=== PATIENT | female | born 1935 | race Caucasian/White ===

== ENCOUNTER 2024-02-02 18:13 | Inpatient (IN) | payer MEDICARE, BC, SELFPAY ==
[2024-02-02 18:26] VITALS: BP 165/92; PULSE 123; RESP 26; TEMP 37.2; O2SAT 93
[2024-02-02 18:36] VITALS: PULSE 120; O2SAT 98; BMI 34.3
--- NOTE | 2024-02-02 18:46 | PC.NURSE ---
BIBA for abdominal distention x2 days. Patient states some times it hurts. Reports having regular bowel movements. Pt on O2 at base line 3L NC. EMS noted pt to have some work of breathing and increased to 4L and placed pt on the monitor, found pt to be Afib RVR hr 100-132. the placed IV.
[2024-02-02 19:23] VITALS: BP 148/94; PULSE 126; RESP 30; TEMP 37.1; O2SAT 92
--- NOTE | 2024-02-02 19:28 | PD.EDABDPN ---
ED Abdominal Pain RME/HPI General Chief Complaint: Abdominal Pain Stated complaint: A FIB, RVR Time seen by provider: 02/02/24 19:41 Arrival date/time: 02/02/24 18:13 RME / HPI RME / HPI narrative: Dr. [facility] Main ED Evaluation: 88yo female with pmhx AAA status post stent, hypertension, hyperlipidemia, asthma, GERD, neuropathy and dementia BIBA from [facility] for 3 days of cough, sore throat, and non-bloody diarrhea. Patient was recently discharged from this facility after having pneumonia and complications due to having blood in her stool. Patient had a colonoscopy during her stay. Patient's daughter reports the patient has had shortness of breath since she was discharged yesterday. Before leaving the hospital she did have some distention. The patient continues to have abdominal distention with increasing pain.Daughter denies any N/V, fever, chills or any other associated symptoms. Related Data Home Medications ?Medication ?Instructions ?Recorded ?Confirmed calcium 333 mg-vit D3 133 1 tab PO BID 01/26/24 01/26/24 unit-magnesium 133 mg-zinc 5 mg tablet donepezil 10 mg tablet (Aricept) 10 mg PO QPM 01/26/24 01/26/24 duloxetine 60 mg capsule,delayed 60 mg PO QDAY 01/26/24 01/26/24 release (Cymbalta) gabapentin 400 mg capsule 400 mg PO QPM 01/26/24 01/26/24 losartan 100 mg tablet 100 mg PO QDAY 01/26/24 01/26/24 meloxicam 15 mg tablet 15 mg PO QDAY 01/26/24 01/26/24 memantine 10 mg tablet 10 mg PO QAM 01/26/24 01/26/24 montelukast 10 mg tablet 10 mg PO QPM 01/26/24 01/26/24 omeprazole 40 mg capsule,delayed 40 mg PO QDAY 01/26/24 01/26/24 release rosuvastatin 10 mg tablet (Crestor) 10 mg PO QDAY 01/26/24 01/26/24 tolterodine 4 mg capsule,extended 4 mg PO QDAY 01/26/24 01/26/24 release 24 hr Allergies Allergy/AdvReac Type Severity Reaction Status Date / Time iodine Allergy Severe HIVES Verified 02/03/24 11:36 Tetracyclines Allergy Unknown Verified 02/03/24 11:36 Review of Systems Review of Systems Systems Reviewed: All systems reviewed, normal except as documented Past Medical History Past Medical History NEUROLOGIC: Positive Neurological Disorders, Cerebrovascular Accident and Dementia; Negative Seizures CARDIAC: Positive Cardiac Disorders, Hypercholesterolemia, Aneurysm, Valvular Heart Disease (aortic repair), Deep Vein Thrombosis and Hypertension; Negative Congestive Heart Failure RESPIRATORY: Positive Asthma, Bronchitis and Pneumonia; Negative Chronic Obstructive Pulmonary Disease (COPD) GASTROINTESTINAL: Positive Gastroesophageal Reflux Disease; Negative Gastrointestinal Disorders GENITOURINARY: Negative Genitourinary Disorders or Renal Disease REPRODUCTIVE: Positive Previous Pregnancies MUSCULOSKELETAL: Positive Musculoskeletal Disorders, Arthritis, Scoliosis and Degenerative Joint Disease ENT: Positive Cataracts ENDOCRINE: Negative Endocrine Disorders, Diabetes Mellitus Type 1 or Diabetes Mellitus Type 2 HEMATOLOGIC: Negative Blood Disorders PSYCHO/SOCIAL: Positive Depression and Anxiety OTHER HISTORY: Positive Chicken Pox, Measles and Cancer; Negative Autoimmune Disease, Blood Transfusions or Anesthesia Reactions Family History FAMILY HISTORY: Positive Family Cardiac Disorders and Family Cancer; Negative Family Psychiatric Problems, Family Respiratory Disorders, Family Gastrointestinal Problems, Family Surgery or Family Anesthesia Reaction Surgical History SURGICAL: Positive Tonsillectomy, Adenoidectomy, Neurologic Surgery and Hysterectomy; Negative Cardiac Surgery Social History SMOKING STATUS: Never smoker ED Exam General General appearance: Present alert and in no apparent distress Head Head exam: Present atraumatic Eye Eye exam: Present normal appearance, PERRL and EOMI ENT ENT exam: Present normal exam, normal oropharynx and mucous membranes moist Neck Neck exam: Present normal inspection, full ROM and trachea midline Chest Chest inspection: Present normal inspection and symmetric chest wall rise Respiratory Respiratory exam: Present normal lung sounds bilaterally Cardiovascular Cardiovascular exam: Present regular rate, normal rhythm and normal heart sounds Abdominal Exam Abdominal exam: Present soft, distention and normal bowel sounds Extremities Exam Extremities exam: Present normal inspection and full ROM Back Exam Back exam: Present normal inspection and full ROM Neurological Exam Neurological exam: Present alert, oriented X3 and CN II-XII intact Psychiatric Psychiatric exam: Present normal affect and normal mood Skin Skin exam: Present warm, dry, intact and normal color Course Quality Measures none Orders Category Date Time Status CT Screening NOW Care 02/02/24 19:[address] Screening NOW Care 02/02/24 19:36 Completed [place] to Martin Routine Care 02/03/24 01:49 Ordered NG / OG Tube Martin X1 Care 02/03/24 01:47 Completed NPO NOW Care 02/03/24 01:48 Active Diet NPO (NOW) Diet 02/03/24 01:[address] abdomen pelvis w con Stat Exams 02/02/24 19:[address] angio chest Stat Exams 02/02/24 19:33 Completed BNP [B-Type Natriuretic Peptide] Stat Lab 02/02/24 19:50 Completed Blood Culture (Lab) Stat Lab 02/02/24 23:39 Results CBC Stat Lab 02/02/24 19:50 Completed CMP [Comprehensive Metabolic Panel] Stat Lab 02/02/24 19:50 Completed Lactate (Lactic Acid) Stat Lab 02/02/24 23:39 Completed Lipase Stat Lab 02/02/24 19:50 Completed PT [Prothrombin Time with INR] Stat Lab 02/02/24 19:50 Completed PTT [Partial Thromboplastin Time] Stat Lab 02/02/24 19:50 Completed Procalcitonin Stat Lab 02/03/24 00:02 Completed Troponin I Stat Lab 02/02/24 19:50 Completed Type and Screen Stat Lab 02/03/24 02:22 Completed Morphine Inj Med 02/03/24 01:28 Discontinued 4 mg IVP X1 ONE Morphine Inj Med 02/03/24 01:47 Discontinued 4 mg IVP X1 ONE Piper/Tazo 3.375 gm [Zosyn] 50 ml Med 02/03/24 14:00 Active IV Q8HR Piper/Tazo Inj [Zosyn Inj] 3.375 gm Med 02/03/24 02:00 Discontinued Sodium Chloride 0.9% (P) [Ns 0.9% (P)] 50 ml IV X1 Sodium Chloride 0.9% 1000 ml [Ns] 1,000 ml Med 02/03/24 01:29 Discontinued IV 999 mls/hr Sodium Chloride 0.9% 500 ml [Ns] 500 ml Med 02/02/24 23:40 Discontinued IV 999 mls/hr Vital Signs Vital signs: Vital Signs Temperature 98.9 F 02/02/24 18:26 Pulse Rate 123 H 02/02/24 18:26 Respiratory Rate 26 H 02/02/24 18:26 Blood Pressure 165/92 H 02/02/24 18:26 Pulse Oximetry (%) 93 L 02/02/24 18:26 Oxygen Delivery Method Nasal Cannula 02/02/24 18:26 Oxygen Flow Rate 2 02/02/24 18:26 Abdominal Pain MDM MDM Narrative MDM Narrative:: 88-year-old female who recently left the hospital and diagnosed with pneumonia who had a complicated stay when she had blood in her stool and a colonoscopy was done. The patient then went [facility]. She has a history of dementia, depression, hyperlipidemia, generalized weakness, GERD, asthma.Daughter reports she has had shortness of breath since he left the hospital. Past medical history of AAA status post stent, hypertension, hyperlipidemia, asthma, GERD, neuropathy and dementia ROS Also increasing abdominal distention since the colonoscopy. No vomiting, no nausea no fever. Differential diagnosis includes pulmonary embolism, worsening pneumonia, pleural effusion, abdominal perforation, non-STEMI. Assessment and plan this is a 88-year-old female coming from care home with slow onset of abdominal distention and shortness of breath since her colonoscopy. -Labs will be sent, and a CT scan of chest to rule out PE as well as CT abdomen to look for small bowel obstruction. -The patient is not in pain at this time. Patient data External records reviewed:: [facility] previous records (Per chart review, patient was admitted here from 01/25/24-02/01/24 for generalized weakness and RUDDY.) Clinical information provided by:: patient and family Social determinants that could affect healthcare access:: none Patient has the following chronic illnesses:: AAA status post stent, hypertension, hyperlipidemia, asthma, GERD, neuropathy and dementia How is presenting disease/condition affected by chronic disease/condition?: exacerbated by Evaluation data The following diagnostics were reviewed and interpreted by me:: lab results and radiology exam(s) Lab and/or radiology exams considered but not ordered:: none Interpretation Summary: CBC is elevated at 15.7, BNP is elevated at 322, PTT is normal, PT and INR are normal, Troponin is normal, Lipase is normal, Creatinine is slightly elevated at 1.6, according to my interpretation. ---- I have personally reviewed the radiology data and agree with the radiologist's interpretation below: [facility] Report Signed Patient: SHELLEY DIEGO [facility]. Record#: [id number] Birthdate: 1935 Age/Sex: 88 / F Location: [facility] Attending Dr: Ordering Physician: Catia Evangelista MD Date of Service: 02/02/24 Procedure(s): CT angio chest Accession Number(s): [id number] cc: Lambert Hansen MD; Bebo Brian MD; Catia Evangelista MD~ Examination: CTA chest with intravenous contrast 2-D reconstructions 3-D reconstructions, vascular Date and time of exam: February 02, 2024 2119 hrs. Indications: Shortness of breath chest pain today, diagnosis hypertension atrial fibrillation CTDI: vol (mGy) 9.87 DLP: (mGycm) 321 Technique: Multiple axial sections of the thorax have been obtained. 3 mm slice thickness, from below the hemidiaphragms to above the apices of the lungs. Mediastinal and lung density settings have been obtained. 2-D sagittal and coronal reconstructions. 3-D angiographic renderings, 3-D volume renderings, 3D post processing, vascular maximum intensity projections obtained. Contrast administered is 60 cc Isovue-300. Low dose protocols were performed. One or more of the following dose reduction techniques were used; automated exposure control, adjustment of the mA and/or KV according to patient size, use of iterative reconstruction technique. Findings: No thoracic aortic aneurysm dilatation or dissection No pulmonary artery emboli Prominent vascular congestion Pneumonia both bases with moderate right mild to moderate left pleural effusions Pneumoperitoneum, prominent with air distending colon Please see the CT abdomen pelvis report Multiple liver cysts Gallbladder is contracted with wall thickening Impression: Negative for pulmonary artery emboli Mild heart failure Bibasilar pneumonia Extensive pneumoperitoneum, please see the CT abdomen pelvis report Dictated By: Bebo Brian MD Signed By: <Electronically signed by Bebo Brian MD in [place]> 02/02/242153 [facility] Signed Patient: SHELLEY DIEGO [facility]. Record#: [id number] Birthdate: 1935 Age/Sex: 88 / F [facility] Attending Dr: Ordering Physician: Catia Evangelista MD Date of Service: 02/02/24 Procedure(s): CT abdomen pelvis w con Accession Number(s): [id number] cc: Lambert Hansen MD; Bebo Brian MD; Catia Evangelista MD~ Examination: CT abdomen with intravenous contrast CT pelvis with intravenous contrast 2-D coronal reconstructions 2-D sagittal reconstructions Date and time of exam:February 05, 2024 at 2119 hrs. Indications: Hypertension abdominal pain chest pain onset today, history abdominal aortic aneurysm post endoluminal aortoiliac stent. CTDI: vol (mGy) 11.4 DLP: (mGycm) 607 Technique: Multiple axial sections of the abdomen and pelvis have been obtained. 64 slice high-resolution scanner used. 3 mm axial sections have been obtained, post intravenous injection 60 cc [id number] 2-D sagittal, coronal reconstructions obtained. Low dose protocols were performed. One or more of the following dose reduction techniques were used; automated exposure control, adjustment of the mA and/or KV according to patient size, use of iterative reconstruction technique. Findings: Retrocardiac gastric hernia with air density in the wall of the stomach Hyperdensity in the stomach with marked mucosal thickening Massive pneumoperitoneum Multiple liver and splenic cysts Gallbladder is contracted with thickened wall Abnormal enlargement common hepatic and common bile duct measuring up to 11 mm Abrupt termination of the distal common bile duct No hydronephrosis Aorta iliac endoluminal stent with infrarenal abdominal aortic aneurysm AP dimension 7.8 cm mediolateral dimension at least 7.5 cm with probable calcification in the abdominal aortic aneurysm, this is not a CTA study Contrast does not opacify the aortoiliac stent Prominent air distention of the colon No diverticulitis Heavily calcified fundus of uterus Severe osteopenia with lumbar fusion L4-S1 Bladder intact Impression: Massive pneumoperitoneum Hyperdensity in the stomach with marked mucosal thickening, gastritis pattern with possible gastrointestinal bleeding Multiple air densities in the wall of the stomach suspicious for gastric perforation causing the pneumoperitoneum Gallbladder wall thickening, consider cholecystitis Aorto iliac endoluminal stent which is not opacified, opacity irregular in the abdominal aortic aneurysm, which may represent calcification Free blood in the abdomen is not identified Dictated By: Bebo Brian MD Signed By: <Electronically signed by Bebo Brian MD in [place]> 02/02/24 6404 Medications / Prescriptions Medications or Prescriptions considered but not ordered:: none Medication administrations:: Medication Administration History Amlodipine Besylate (Amlodipine Besylate 5 Mg Tablet) 5 mg PO QDAY SAIRA Stop: 03/04/24 08:59 Last Admin: 02/03/24 09:21 Dose: 5 mg Documented By: EF Ascorbic Acid (Ascorbic Acid 250 Mg Tablet) 500 mg PO BID [facility] Stop: 03/04/24 20:59 Last Admin: 02/03/24 21:31 Dose: Not Given Documented By: Non-Admin Reason: NPO Atorvastatin Calcium (Atorvastatin Calcium 20 Mg Tablet) 40 mg PO 2100 SAIRA Stop: 03/04/24 20:59 Last Admin: 02/03/24 21:31 Dose: Not Given Documented By: Non-Admin Reason: NPO Docusate Sodium (Docusate Sod 100 Mg Capsule) 100 mg PO BID [facility]; Protocol Stop: 03/04/24 20:59 Last Admin: 02/03/24 21:31 Dose: Not Given Documented By: Non-Admin Reason: NPO Donepezil HCl (Donepezil Hcl 5 Mg Tablet) 10 mg PO QPM SAIRA Stop: 03/04/24 20:59 Last Admin: 02/03/24 21:31 Dose: Not Given Documented By: Non-Admin Reason: NPO Gabapentin (Gabapentin 100 Mg Capsule) 400 mg PO QPM SAIRA Stop: 03/04/24 20:59 Last Admin: 02/03/24 21:31 Dose: Not Given Documented By: Non-Admin Reason: NPO Piperacillin/Tazobactam/Dextrose (Zosyn) 50 mls @ 12.5 mls/hr IV Q8HR [facility]; Protocol Stop: 02/10/24 13:59 Last Admin: 02/03/24 22:52 Dose: 12.5 mls/hr Documented By: Admin: 02/03/24 17:35 Dose: Not Given Documented By: LW Non-Admin Reason: Not In Room Vancomycin/Sodium Chloride (Vancomycin/Ns 750 Mg Ivpb) 750 mg in 150 mls @ 120 mls/hr IV QDAY@2200 [facility] Stop: 02/10/24 21:59 Last Admin: 02/03/24 21:31 Dose: 120 mls/hr Documented By: Labetalol HCl (Labetalol Inj 5 Mg/Ml Vial 20 Ml) 10 mg IVP Q4H PRN PRN Reason: Hypertension Stop: 03/04/24 04:43 Memantine (Memantine Hcl 5 Mg Tablet) 10 mg PO QAM [facility] Stop: 03/04/24 08:59 Last Admin: 02/03/24 09:22 Dose: 10 mg Documented By: EF Morphine Sulfate (Morphine Sulf Inj 10 Mg/Ml Vial) 2 mg IVP Q4H PRN PRN Reason: PAIN SCALE 7-10 (Severe Stop: 02/08/24 02:25 Ondansetron HCl (Ondansetron Inj 2 Mg/Ml Inj 2 Ml) 4 mg IV Q6H PRN; Protocol PRN Reason: NAUSEA OR VOMITING Stop: 03/04/24 02:19 Pantoprazole Sodium (Pantoprazole Inj 40 Mg Vial) 40 mg IVP QDAY [facility] Stop: 03/04/24 08:59 Last Admin: 02/03/24 08:54 Dose: 40 mg Documented By: JOANNA Pharmacy Consult (Vancomycin Pharmacy To Dose 1 Each Each) 1 each IV QDAY PRN PRN Reason: CONSULT Stop: 03/04/24 08:59 Zinc Sulfate (Zinc Sulfate 220 Mg Capsule) 220 mg PO QDAY [facility] Stop: 03/05/24 08:59 Discontinued Medications Acetaminophen (Acetaminophen Supp 650 Mg Supp) 650 mg SC Q6HR PRN PRN Reason: Fever > 100.4 Stop: 03/04/24 02:19 Cefoxitin Sodium (Cefoxitin Sod Inj 1 Gm Vial) Confirm Administered Dose 2 gm .ROUTE .STK-MED ONE Stop: 02/03/24 12:19 Fentanyl Citrate (Fentanyl Cit Inj 50 Mcg/Ml Amp 2ml) Confirm Administered Dose 100 mcg .ROUTE .STK-MED ONE Stop: 02/03/24 11:48 Fentanyl Citrate (Fentanyl Cit Inj 50 Mcg/Ml Amp 2ml) 50 mcg IV Q5M PRN PRN Reason: PAIN SCALE 4-6 (Moderate Stop: 02/03/24 17:28 Sodium Chloride (Ns) 500 mls @ 999 mls/hr IV .[id number] ONE Stop: 02/03/24 00:10 Last Infusion: 02/03/24 00:42 Dose: Infused Documented By: Admin: 02/02/24 23:43 Dose: 999 mls/hr Documented By: RETA Sodium Chloride (Ns) 1,000 mls @ 999 mls/hr IV .Q1H1M ONE Stop: 02/03/24 02:29 Last Infusion: 02/03/24 03:16 Dose: Infused Documented By: Admin: 02/03/24 01:38 Dose: 999 mls/hr Documented By: RETA Piperacillin Sod/Tazobactam (Sod 3.375 gm/ Sodium Chloride) 50 mls @ 100 mls/hr IV X1 ONE Stop: 02/03/24 02:29 Last Infusion: 02/03/24 03:14 Dose: Infused Documented By: Admin: 02/03/24 02:07 Dose: 100 mls/hr Documented By: RETA Lactated Ringer's (Lactated Ringers) 1,000 mls @ 75 mls/hr IV .[id number] SAIRA Stop: 03/04/24 02:29 Lactated Ringer's (Lactated Ringers) 1,000 mls @ 75 mls/hr IV .[id number] ONE Stop: 02/03/24 15:49 Last Admin: 02/03/24 03:31 Dose: Not Given Documented By: MARTHA Non-Admin Reason: Discontinued Vancomycin/Sodium Chloride (Vancomycin/Ns 1 Gm Ivpb) 200 mls @ 120 mls/hr IV X1 ONE Stop: 02/03/24 04:24 Last Infusion: 02/03/24 05:26 Dose: Infused Documented By: Admin: 02/03/24 03:26 Dose: 120 mls/hr Documented By: RETA Sodium Chloride (Ns) 1,000 mls @ 75 mls/hr IV .[id number] ONE Stop: 02/03/24 16:07 Last Admin: 02/03/24 03:26 Dose: 75 mls/hr Documented By: RETA Acetaminophen (Ofirmev Inj) 1,000 mg in 100 mls @ 250 mls/hr IV Q6HR PRN PRN Reason: PAIN SCALE 4-10(Mod-Sev Stop: 02/04/24 15:27 Acetaminophen (Ofirmev Inj) Confirm Administered Dose 100 mls @ ud IV .STK-MED ONE Stop: 02/03/24 15:54 Labetalol HCl (Labetalol Inj 5 Mg/Ml Vial 20 Ml) 10 mg IVP X1 ONE Stop: 02/03/24 04:45 Last Admin: 02/03/24 05:45 Dose: Not Given Documented By: MARTHA Non-Admin Reason: Other, see note Comments: NOT GIVEN PT BP 145/82. Morphine Sulfate (Morphine Sulf Inj 10 Mg/Ml Vial) 4 mg IVP X1 ONE Stop: 02/03/24 01:29 Last Admin: 02/03/24 01:38 Dose: 4 mg Documented By: RETA Morphine Sulfate (Morphine Sulf Inj 10 Mg/Ml Vial) 4 mg IVP X1 ONE Stop: 02/03/24 01:48 Last Admin: 02/03/24 02:05 Dose: Not Given Documented By: RETA Non-Admin Reason: Duplicate Medication on eMAR Non-Formulary Medication (Rosuvastatin [Crestor]) 10 mg PO QDAY SAIRA Stop: 03/04/24 08:59 Ondansetron HCl (Ondansetron Inj 2 Mg/Ml Inj 2 Ml) 4 mg IV X1 ONE Stop: 02/03/24 15:29 Last Admin: 02/03/24 17:35 Dose: Not Given Documented By: TORRIE Non-Admin Reason: Cancelled by Provider Phenylephrine HCl (Phenylephrine Inj In Ns 100 Mcg/Ml 10 Ml Syringe) Confirm Administered Dose 1,000 mcg .ROUTE .STK-MED ONE Stop: 02/03/24 12:15 Phenylephrine HCl (Phenylephrine Inj 10 Mg/Ml Vial) Confirm Administered Dose 10 mg .ROUTE .STK-MED ONE Stop: 02/03/24 12:22 Propofol (Propofol Inj 10 Mg/Ml Vial 20 Ml) Confirm Administered Dose 200 mg IV .STK-MED ONE Stop: 02/03/24 11:48 Rocuronium [place] (Rocuronium Inj 10 Mg/Ml Vial 10 Ml) Confirm Administered Dose 100 mg .ROUTE .STK-MED ONE Stop: 02/03/24 11:48 Sugammadex Sodium (Sugammadex Inj 100 Mg/Ml 2ml Vial) Confirm Administered Dose 200 mg .ROUTE .STK-MED ONE Stop: 02/03/24 14:59 see above Consultations Consultation(s) initiated? (list below): Yes Consultation #1 (Physician, Specialty, Details): Discussed case with [Dr. Hsu] from [gastroenterology] regarding [consultation]. Discussed patients ED course, exam findings, labs, and radiology results. Requests the patient to be admitted, as well has starting abx, obtaining surgical consultation, and having an NG tube placed. Consultation #2 (Physician, Specialty, Details): Discussed case with [Dr. Sánchez, attending Dr. Roberto] from Hospitalist service regarding admission. Discussed patients ED course, exam findings, labs, and radiology results. The Hospitalist [agrees] to accept the patient for admission. Consultation #3 (Physician, Specialty, Details): Discussed case with [Dr. Ayala] from [general surgery] regarding [consultation]. Discussed patients ED course, exam findings, labs, and radiology results. Agrees to consult. Time: 01:42 Diagnosis Differential diagnosis abdominal pain: other (pulmonary embolism, worsening pneumonia, pleural effusion, abdominal perforation, non-STEMI) Most likely diagnosis given after review of the tests above:: see below Admission Indicated Admission indicated?: indicated Admission Request Was there a request for admission?: Yes Admission Attestation Admission request attestation: Discussed case with [] from Hospitalist service regarding admission. Discussed patients ED course, exam findings, labs, and radiology results. The Hospitalist [agrees,declines] to accept the patient for admission. Disposition Plan Disposition Plan: Admit Critical Care Time Critical Care Time Critical Care Time: Yes Total Critical Care Time (min.): 45 Attestation: The high probability of sudden, clinically significant deterioration in the patient?s condition required the highest level of my preparedness to intervene urgently. The services I provided to this patient were to treat and/or prevent clinically significant deterioration. Services included the following: chart data review, reviewing nursing notes and/or old charts, documentation time, political consultant collaboration regarding findings and treatment options, medication orders and management, direct patient care, vital sign assessments and ordering, interpreting and reviewing diagnostic studies and lab tests. Aggregate critical care time includes only time during which I was engaged in work directly related to the patient?s care, as described above, whether at bedside or elsewhere in the Emergency Department. It did not include time spent performing other reported procedures or the services of residents, students, nurses or physician assistants. Discharge Plan Plan Patient Disposition: Admit Acute Care w/in Hospital Patient condition on transfer: Stable Problem List Clinical Impression: Pneumoperitoneum, Post-operative complication
--- NOTE | 2024-02-02 19:33 | XR_ITS ---
Examination: CTA chest with intravenous contrast 2-D reconstructions 3-D reconstructions, vascular Date and time of exam: February 02, 2024 2119 hrs. Indications: Shortness of breath chest pain today, diagnosis hypertension atrial fibrillation CTDI: vol (mGy) 9.87 DLP: (mGycm) 321 Technique: Multiple axial sections of the thorax have been obtained. 3 mm slice thickness, from below the hemidiaphragms to above the apices of the lungs. Mediastinal and lung density settings have been obtained. 2-D sagittal and coronal reconstructions. 3-D angiographic renderings, 3-D volume renderings, 3D post processing, vascular maximum intensity projections obtained. Contrast administered is 60 cc Isovue-300. Low dose protocols were performed. One or more of the following dose reduction techniques were used; automated exposure control, adjustment of the mA and/or KV according to patient size, use of iterative reconstruction technique. Findings: No thoracic aortic aneurysm dilatation or dissection No pulmonary artery emboli Prominent vascular congestion Pneumonia both bases with moderate right mild to moderate left pleural effusions Pneumoperitoneum, prominent with air distending colon Please see the CT abdomen pelvis report Multiple liver cysts Gallbladder is contracted with wall thickening Impression: Negative for pulmonary artery emboli Mild heart failure Bibasilar pneumonia Extensive pneumoperitoneum, please see the CT abdomen pelvis report
--- NOTE | 2024-02-02 19:35 | XR_ITS ---
Examination: CT abdomen with intravenous contrast CT pelvis with intravenous contrast 2-D coronal reconstructions 2-D sagittal reconstructions Date and time of exam:February 05, 2024 at 2119 hrs. Indications: Hypertension abdominal pain chest pain onset today, history abdominal aortic aneurysm post endoluminal aortoiliac stent. CTDI: vol (mGy) 11.4 DLP: (mGycm) 607 Technique: Multiple axial sections of the abdomen and pelvis have been obtained. 64 slice high-resolution scanner used. 3 mm axial sections have been obtained, post intravenous injection 60 cc [id number] 2-D sagittal, coronal reconstructions obtained. Low dose protocols were performed. One or more of the following dose reduction techniques were used; automated exposure control, adjustment of the mA and/or KV according to patient size, use of iterative reconstruction technique. Findings: Retrocardiac gastric hernia with air density in the wall of the stomach Hyperdensity in the stomach with marked mucosal thickening Massive pneumoperitoneum Multiple liver and splenic cysts Gallbladder is contracted with thickened wall Abnormal enlargement common hepatic and common bile duct measuring up to 11 mm Abrupt termination of the distal common bile duct No hydronephrosis Aorta iliac endoluminal stent with infrarenal abdominal aortic aneurysm AP dimension 7.8 cm mediolateral dimension at least 7.5 cm with probable calcification in the abdominal aortic aneurysm, this is not a CTA study Contrast does not opacify the aortoiliac stent Prominent air distention of the colon No diverticulitis Heavily calcified fundus of uterus Severe osteopenia with lumbar fusion L4-S1 Bladder intact Impression: Massive pneumoperitoneum Hyperdensity in the stomach with marked mucosal thickening, gastritis pattern with possible gastrointestinal bleeding Multiple air densities in the wall of the stomach suspicious for gastric perforation causing the pneumoperitoneum Gallbladder wall thickening, consider cholecystitis Aorto iliac endoluminal stent which is not opacified, opacity irregular in the abdominal aortic aneurysm, which may represent calcification Free blood in the abdomen is not identified
[2024-02-02 20:00] LABS: Basophils % (Auto) 0 % (0-2.5); Eosinophils # (Auto) 0.1 Thou/mm3 (0.0-0.5); Eosinophils % (Auto) 0 % (0-10); Hematocrit 36.6 % (36.0-46.0); Hemoglobin 12.1 g/dL (12.0-16.0); Immature Granulocytes % (Auto) 2 % (0-0); Immature Granulocytes Auto 0.34 Thou/mm3 (0.00-0.00); Lymphocytes # (Auto) 0.9 Thou/mm3 (1.0-4.8); Lymphocytes % (Auto) 6 % (10-50); Mean Corpuscular HGB Conc 33.1 g/dl (31.0-37.0); Mean Corpuscular Hemoglobin 32.4 pg (25.0-35.0); Mean Corpuscular Volume 98 fL (80-100); Monocytes % (Auto) 19 % (0-12); Neutrophils # (Auto) 11.4 Thou/mm3 (1.8-7.7); Neutrophils % (Auto) 73 % (37-80); Nucleated Red Blood Cell % 0 /100 WBC (0); Platelet Count 190 Thou/mm3 (140-440); RDW Standard Deviation 48.9 fL (36.4-46.3); Red Blood Count 3.74 Miln/mm3 (4.00-5.20); White Blood Count 15.7 Thou/mm3 (3.6-11.0)
[2024-02-02 20:16] LABS: INR 1.1 (0.9-1.3); Partial Thromboplastin Time 31.6 Seconds (22.0-36.0); Prothrombin Time 11.9 Seconds (9.0-12.2)
[2024-02-02 20:17] LABS: B-Type Natriuretic Peptide 322 pg/mL (0-100)
[2024-02-02 20:19] LABS: Alanine Aminotransferase 9 U/L (10-49); Albumin, Serum 3.9 gm/dL (3.4-4.8); Albumin/Globulin Ratio 1.4 (1.2-2.2); Alkaline Phosphatase 88 U/L (46-116); Anion Gap 9 (7-16); Aspartate Amino Transferase 17 U/L (0-34); BUN/Creatinine Ratio 11 Ratio (12-20); Bilirubin,Total 0.5 mg/dL (0.3-1.2); Blood Urea Nitrogen 18 mg/dL (9-23); Calcium 9.8 mg/dL (8.3-10.6); Calcium (Corrected) 9.9 mg/dL (8.5-10.1); Carbon Dioxide 24.4 mMol/L (20.0-31.0); Chloride 108 mMol/L (98-107); Creatinine (Component) 1.6 mg/dL (0.6-1.3); Estimated Creatinine Clearance 27.5 mL/min (>60); Globulin 2.8 gm/dL (2.3-3.5); Glucose 173 mg/dL (74-106); Lipase 24 U/L (12-53); Osmolality,Calculated 287 (275-295); Potassium 3.5 mMol/L (3.4-5.1); Sodium 141 mMol/L (136-145); Total Protein 6.7 gm/dL (5.7-8.2); Troponin I 0.034 ng/mL (0.0-0.045); eGFR 31 See Note
[2024-02-02 20:23] VITALS: BP 158/99; PULSE 120; RESP 20; TEMP 38; O2SAT 92
[2024-02-02] MEDS: SODIUM CHLORIDE 0.9% 500 ML 500 ML 999 ML IV (23:43)
[2024-02-02 23:50] VITALS: BP 167/92; PULSE 125; RESP 20; TEMP 37.9; O2SAT 93
[2024-02-03] VITALS (23 sets, daily range): BP systolic 111–187; BP diastolic 69–131; PULSE 91–120; RESP 12–24; TEMP 36.2–37.9; O2SAT 92–98; BMI 31.0
[2024-02-03 00:06] LABS: Lactate (Lactic Acid) 1.1 mMol/L (0.4-2.0)
[2024-02-03] MEDS: MORPHINE SULF INJ 10 MG/ML VIAL 4 MG IVP (01:38)
[2024-02-03] MEDS: SODIUM CHLORIDE 0.9% 1000 ML 1,000 ML 999 ML IV (01:38)
[2024-02-03] MEDS: PIPER/TAZO INJ 3.375 GM in SODIUM CHLORIDE 0.9% (P) 50 ML IV (02:07)
--- NOTE | 2024-02-03 02:26 | XR_ITS ---
Examination: AP chest single view Technique: AP portable semiupright chest single view Exam date and time: February 03, 2024 at 0229 hrs. Indications: Post orogastric tube placement, history abdominal pain this week, massive pneumoperitoneum on CT abdomen examination today,, post orogastric tube placement Findings: Moderate enlargement left ventricle Prominent vascular congestion Bibasilar opacity consistent with pneumonia Extensive pneumoperitoneum Orogastric tube projects in a large retrocardiac gastric hernia Prominent osteopenia with significant osteoarthritis glenohumeral joints and ossified joint bodies left glenohumeral joint Impression: Bibasilar pneumonia Extensive pneumoperitoneum Orogastric tube projects in a large retrocardiac gastric hernia
--- NOTE | 2024-02-03 02:33 | ESHP_ITS ---
<Statement entered by Randy Roberto MD - 02/03/24 05:25> I was present for the essential components of the history, physical examination, diagnosis, and treatment plan with the resident. I have reviewed the documentation, discussed the case with the resident and agree with the patient's care as documented by the resident. High risk high complex - 75 mins. Randy Roberto MD Documentation for date of: 02/03/24 HPI History of Present Illness History of present illness: 88-year-old female patient with significant medical history for abdominal aortic aneurysm s/p stents, HLD, HTN, GERD, asthma and dementia was brought to ED for distended abdomen. Patient was recently admitted to [facility] on 01/26/2024 and discharged on 02/02/2024 for septic pneumonia and RUDDY. While in hospital patient also underwent EGD and colonoscopy as she was found to have downtrending of hemoglobin and there was concern for GI malignancy. EGD indicated gastritis and esophagitis, colonoscopy indicated severe diverticulosis and hemorrhoids. Patient was stable, had bowel movements/flatus and was discharged on p.o. Augmentin. Since discharge patient was witnessed to have a similar abdomen and no flatus/bowel movement. Today ED vitals were significant for BP 165/92, pulse 123, respiratory rate 26 and temperature 100.4 F. CBC was significant for leukocytosis 15.7, labs indicated creatinine 1.6 (baseline 1-1.1), glucose 173, lactic acid 1.1, BNP 322 and procalcitonin of 0.64. Abdomen/pelvis CT indicated: Massive pneumoperitoneum, hyperdensity in the stomach with marked mucosal thickening, gastritis pattern with possible gastrointestinal bleeding, multiple air densities in the wall of the stomach suspicious for gastric perforation causing the pneumoperitoneum, gallbladder wall thickening. Chest CTA showed mild heart failure, bibasilar pneumonia and extensive pneumoperitoneum. Cell Attendant Dr. Hsu was consulted along with general surgeon Dr. Ayala. Patient will be admitted for pneumoperitoneum management. Review of Systems Review of Systems Systems Reviewed: All systems reviewed, normal except as documented Exam Vital Signs Temp Pulse Resp BP Pulse Ox O2 Del Method O2 Flow Rate 100.2 F 120 H 20 187/86 H 95 Nasal Cannula 3 02/03/24 00:12 02/03/24 00:12 02/03/24 00:12 02/03/24 00:12 02/03/24 00:12 02/03/24 00:12 02/03/24 00:12 Narrative Exam Constitutional: well-developed, well-nourished, in mild distress, on nasal cannula HEENT: NCAT, EOMI, reactive round pupils b/l, patent nares b/l, moist mucous membranes Lung: CTAB, no wheezing, no rhonchi Heart: Regular S1S2, no murmurs, gallops, or rubs Abdomen: Firm, distended, non-guarding, non-tender on palpation, bowel sounds absent Extremities: No cyanosis, clubbing, or edema, LE pulses present b/l Neurologic: No focal sensory or motor deficits noted, AOx1, appropriate affect Skin: Warm, dry, no lesions or rashes noted Results: Labs 02/03/24 04:52 02/02/24 19:50 Labs: Short CBC 02/02/24 Range/Units 19:50 WBC 15.7 H (3.6-11.0) Thou/mm3 Hgb 12.1 (12.0-16.0) g/dL Hct 36.6 (36.0-46.0) % Plt Count 190 D (140-440) Thou/mm3 BMP 02/02/24 19:50 Sodium 141 Potassium 3.5 Chloride 108 H Carbon Dioxide 24.4 BUN 18 Creatinine 1.6 H D Glucose 173 H D Calcium 9.8 Cardiac Enzymes 02/02/24 Range/Units 19:50 Troponin I 0.034 (0.0-0.045) ng/mL Liver Function 02/02/24 Range/Units 19:50 Total Bilirubin 0.5 (0.3-1.2) mg/dL AST 17 (0-34) U/L ALT 9 L (10-49) U/L Alkaline Phosphatase 88 (46-116) U/L Albumin 3.9 (3.4-4.8) gm/dL Urine 02/02/24 Range/Units 20:00 Urine Color Cancelled Urine Clarity Cancelled Urine pH Cancelled Ur Specific [place] Cancelled Urine Protein Cancelled Urine Glucose (UA) Cancelled Quality Measures Quality Measures none Advance care planning discussed with:: other Medications Home Medications and Allergies Home Medications ?Medication ?Instructions ?Recorded ?Confirmed ?Type calcium 333 mg-vit D3 133 1 tab PO BID 01/26/24 01/26/24 History unit-magnesium 133 mg-zinc 5 mg tablet donepezil 10 mg tablet (Aricept) 10 mg PO QPM 01/26/24 01/26/24 History duloxetine 60 mg capsule,delayed 60 mg PO QDAY 01/26/24 01/26/24 History release (Cymbalta) gabapentin 400 mg capsule 400 mg PO QPM 01/26/24 01/26/24 History losartan 100 mg tablet 100 mg PO QDAY 01/26/24 01/26/24 History meloxicam 15 mg tablet 15 mg PO QDAY 01/26/24 01/26/24 History memantine 10 mg tablet 10 mg PO QAM 01/26/24 01/26/24 History montelukast 10 mg tablet 10 mg PO QPM 01/26/24 01/26/24 History omeprazole 40 mg capsule,delayed 40 mg PO QDAY 01/26/24 01/26/24 History release rosuvastatin 10 mg tablet (Crestor) 10 mg PO QDAY 01/26/24 01/26/24 History tolterodine 4 mg capsule,extended 4 mg PO QDAY 01/26/24 01/26/24 History release 24 hr Allergies Allergy/AdvReac Type Severity Reaction Status Date / Time iodine Allergy Severe HIVES Verified 05/15/18 10:55 Tetracyclines Allergy Unknown Verified 05/15/18 10:55 Visit Medications Acetaminophen (Acetaminophen Supp 650 Mg Supp) 650 mg [place] Q6HR PRN PRN Reason: Fever > 100.4 Stop: 03/04/24 02:19 Piperacillin Sod/Tazobactam (Sod 3.375 gm/ Sodium Chloride) 50 mls @ 100 mls/hr IV Q6HR SAIRA Stop: 02/10/24 01:47 Lactated Ringer's (Lactated Ringers) 1,000 mls @ 75 mls/hr IV .[id number] ONE Stop: 02/03/24 15:49 Morphine Sulfate (Morphine Sulf Inj 10 Mg/Ml Vial) 2 mg IVP Q4H PRN PRN Reason: PAIN SCALE 7-10 (Severe Stop: 02/08/24 02:25 Ondansetron HCl (Ondansetron Inj 2 Mg/Ml Inj 2 Ml) 4 mg IV Q6H PRN; Protocol PRN Reason: NAUSEA OR VOMITING Stop: 03/04/24 02:19 Pantoprazole Sodium (Pantoprazole Inj 40 Mg Vial) 40 mg IVP QDAY [facility] Stop: 03/04/24 08:59 Pharmacy Consult (Vancomycin Pharmacy To Dose 1 Each Each) 1 each IV QDAY [facility] Stop: 03/04/24 08:59 Discontinued Medications Sodium Chloride (Ns) 500 mls @ 999 mls/hr IV .Q31M ONE Stop: 02/03/24 00:10 Last Infusion: 02/03/24 00:42 Dose: Infused Sodium Chloride (Ns) 1,000 mls @ 999 mls/hr IV .Q1H1M ONE Stop: 02/03/24 02:29 Last Admin: 02/03/24 01:38 Dose: 999 mls/hr Piperacillin Sod/Tazobactam (Sod 3.375 gm/ Sodium Chloride) 50 mls @ 100 mls/hr IV X1 ONE Stop: 02/03/24 02:29 Last Admin: 02/03/24 02:07 Dose: 100 mls/hr Lactated Ringer's (Lactated Ringers) 1,000 mls @ 75 mls/hr IV .[id number] [facility] Stop: 03/04/24 02:29 Morphine Sulfate (Morphine Sulf Inj 10 Mg/Ml Vial) 4 mg IVP X1 ONE Stop: 02/03/24 01:29 Last Admin: 02/03/24 01:38 Dose: 4 mg Morphine Sulfate (Morphine Sulf Inj 10 Mg/Ml Vial) 4 mg IVP X1 ONE Stop: 02/03/24 01:48 Last Admin: 02/03/24 02:05 Dose: Not Given Assessment & Plan Plan 88-year-old female patient with significant medical history for abdominal aortic aneurysm s/p stents, HLD, HTN, GERD, asthma and dementia was brought to ED for distended abdomen. Patient was recently admitted to [facility] on 01/26/2024 and discharged on 02/02/2024 for septic pneumonia and RUDDY. Today ED vitals were significant for BP 165/92, pulse 123, respiratory rate 26 and temperature 100.4 F. CBC was significant for leukocytosis 15.7, labs indicated creatinine 1.6 (baseline 1-1.1), glucose 173, lactic acid 1.1, BNP 322 and procalcitonin of 0.64. Abdomen/pelvis CT indicated: Massive pneumoperitoneum, hyperdensity in the stomach with marked mucosal thickening, gastritis pattern with possible gastrointestinal bleeding, multiple air densities in the wall of the stomach suspicious for gastric perforation causing the pneumoperitoneum, gallbladder wall thickening. Patient will be admitted for pneumoperitoneum management. #Pneumoperitoneum #Distended abdomen #Sepsis Patient recently admitted for septic pneumonia and RUDDY Patient underwent recent EGD and colonoscopy On admission patient with distended abdomen and absent flatus Abdomen pelvis imaging indicative of pneumoperitoneum Labs significant for WBC 15.7, procalcitonin 0.64, temperature 100.4 F Plan: ? Admit to telemetry ? Start broad-spectrum antibiotics with Vanco and Zosyn IV ? N.p.o. ? Maintenance IVF NS at 75 cc/h ? NG tube with LIS ? GI Dr. Hsu consulted, recommendations are greatly appreciated ? General Surgeon Dr. Ayala consulted, recommendations greatly appreciated ? Follow-up CBC #Hospital acquired pneumonia Patient recently admitted for septic pneumonia, discharged on p.o. Augmentin Labs significant for WBC elevated at 15.7, procalcitonin 0.64 and temperature of 100.4 F Plan: ? Continue broad-spectrum antibiotics ? DuoNebs as needed ? Blood cultures pending ? Tylenol suppository as needed for fever > 100.4 F ? Follow-up CBC #RUDDY, most likely prerenal in setting of pneumonia On admission patient with creatinine 1.4 (baseline 1-1.1) Plan: ? Continue maintenance IVF ? Avoid nephrotoxin ? Renally dose medications #History of dementia Plan: Restart home med donepezil and memantine #History of AAA status post stents The patient has a history of AAA s/p stents. Patient is on reports that she follows Dr. Pro and has appointments every 6 months Plan: ? Follow-up outpatient postdischarge #Incidental finding of liver and splenic lesions CT abdomen and pelvis showed some previous history of lesions. 01/30/2024- MRI abdomen with liver protocol done showed multiple liver lesions as well as spleen and renal consistent with simple cysts, follow-up with ultrasound in 6 months per recommendations Health Maintenance Dispo: Patient admitted for pneumoperitoneum, general surgeon consulted Diet: N.p.o. DVT/PPx: SCD GI ppx: Protonix Lines: PIV and Thorpe catheter Code Status: Full code This patient care was discussed with my attending Dr. Felisa Sánchez MD PGY-2 Disclaimer: Minor errors in manager meeting may be present since this note was dictated by speech recognition software.
[2024-02-03 02:34] LABS: Procalcitonin 0.64 ng/ml (0.0-0.49)
[2024-02-03] MEDS: SODIUM CHLORIDE 0.9% 1000 ML 1,000 ML 75 ML IV (03:26)
[2024-02-03] MEDS: VANCOMYCIN/NS 1 GM IVPB 200 ML IV (03:26)
[2024-02-03 05:00] LABS: Lactate (Lactic Acid) 0.9 mMol/L (0.4-2.0)
[2024-02-03 05:07] LABS: Basophils % (Auto) 0 % (0-2.5); Eosinophils # (Auto) 0.1 Thou/mm3 (0.0-0.5); Eosinophils % (Auto) 1 % (0-10); Hematocrit 33.6 % (36.0-46.0); Hemoglobin 10.9 g/dL (12.0-16.0); Immature Granulocytes % (Auto) 3 % (0-0); Immature Granulocytes Auto 0.43 Thou/mm3 (0.00-0.00); Lymphocytes % (Auto) 7 % (10-50); Mean Corpuscular HGB Conc 32.4 g/dl (31.0-37.0); Mean Corpuscular Hemoglobin 32.4 pg (25.0-35.0); Mean Corpuscular Volume 100 fL (80-100); Monocytes # (Auto) 3.1 Thou/mm3 (0.0-0.8); Monocytes % (Auto) 21 % (0-12); Neutrophils # (Auto) 9.8 Thou/mm3 (1.8-7.7); Neutrophils % (Auto) 68 % (37-80); Nucleated Red Blood Cell # 0.03 Thou/mm3 (0.00-0.00); Nucleated Red Blood Cell % 0 /100 WBC (0); Platelet Count 167 Thou/mm3 (140-440); RDW Standard Deviation 51.1 fL (36.4-46.3); Red Blood Count 3.36 Miln/mm3 (4.00-5.20); White Blood Count 14.5 Thou/mm3 (3.6-11.0)
[2024-02-03 06:04] LABS: Alanine Aminotransferase 8 U/L (10-49); Albumin, Serum 3.6 gm/dL (3.4-4.8); Albumin/Globulin Ratio 1.4 (1.2-2.2); Alkaline Phosphatase 79 U/L (46-116); Anion Gap 8 (7-16); Aspartate Amino Transferase 13 U/L (0-34); BUN/Creatinine Ratio 12 Ratio (12-20); Bilirubin,Total 0.5 mg/dL (0.3-1.2); Blood Urea Nitrogen 16 mg/dL (9-23); Calcium 8.8 mg/dL (8.3-10.6); Calcium (Corrected) 9.1 mg/dL (8.5-10.1); Carbon Dioxide 23.8 mMol/L (20.0-31.0); Chloride 111 mMol/L (98-107); Creatinine (Component) 1.3 mg/dL (0.6-1.3); Estimated Creatinine Clearance 33.9 mL/min (>60); Globulin 2.5 gm/dL (2.3-3.5); Glucose 126 mg/dL (74-106); Magnesium 1.8 mg/dL (1.6-2.6); Osmolality,Calculated 288 (275-295); Potassium 3.4 mMol/L (3.4-5.1); Sodium 143 mMol/L (136-145); Total Protein 6.1 gm/dL (5.7-8.2); eGFR 40 See Note
--- NOTE | 2024-02-03 08:40 | PC.NURSE ---
spoke with dr meadows regarding patients plan of care and states dr faria to consult with patient and repeat cbc,cmp now. Patients daughter levi made aware.
--- NOTE | 2024-02-03 08:50 | PC.NURSE ---
called pharmacy for namenda not in ER pyxis
[2024-02-03] MEDS: PANTOPRAZOLE INJ 40 MG VIAL IVP (08:54)
--- NOTE | 2024-02-03 09:14 | PC.NURSE ---
dr ramon at bedside
[2024-02-03] MEDS: amLODIPine BESYLATE 5 MG TABLET PO (09:21)
[2024-02-03] MEDS: MEMANTINE HCL 5 MG TABLET 10 MG PO (09:22)
--- NOTE | 2024-02-03 09:26 | PC.IP ---
dr faria at bedside
--- NOTE | 2024-02-03 09:34 | PC.NURSE ---
Dr. Ayala at bedside consulting with patient and speaking with daughter regarding plan of care.
[2024-02-03 09:36] LABS: Basophils % (Auto) 0 % (0-2.5); Eosinophils # (Auto) 0.1 Thou/mm3 (0.0-0.5); Eosinophils % (Auto) 1 % (0-10); Hematocrit 36.5 % (36.0-46.0); Hemoglobin 11.8 g/dL (12.0-16.0); Immature Granulocytes % (Auto) 3 % (0-0); Immature Granulocytes Auto 0.41 Thou/mm3 (0.00-0.00); Lymphocytes % (Auto) 6 % (10-50); Mean Corpuscular HGB Conc 32.3 g/dl (31.0-37.0); Mean Corpuscular Hemoglobin 32.4 pg (25.0-35.0); Mean Corpuscular Volume 100 fL (80-100); Monocytes # (Auto) 3.8 Thou/mm3 (0.0-0.8); Monocytes % (Auto) 24 % (0-12); Neutrophils # (Auto) 10.8 Thou/mm3 (1.8-7.7); Neutrophils % (Auto) 67 % (37-80); Nucleated Red Blood Cell % 0 /100 WBC (0); Platelet Count 181 Thou/mm3 (140-440); RDW Standard Deviation 51.6 fL (36.4-46.3); Red Blood Count 3.64 Miln/mm3 (4.00-5.20); White Blood Count 16.2 Thou/mm3 (3.6-11.0)
--- NOTE | 2024-02-03 09:36 | PD.SURCONS ---
HPI Consult details Consult date: 02/03/24 Reason for consult: abdominal pain History of present illness: 88-year-old female with history of hypertension, hypercholesterolemia, GERD and arthritis was admitted last week with weakness. During that hospitalization he underwent EGD that revealed bile gastritis and esophagitis. She also underwent colonoscopy that revealed diverticular disease, stricture of sigmoid colon and a difficult colonoscopy. The colonoscope was unable to be passed beyond the area of sigmoid stricture, an upper endoscopy scope was used and was advanced up to hepatic flexure. He had a bowel movement and was discharged to a retirement where she started having abdominal pain and distention since yesterday that has been getting progressively worse. A CT scan was obtained that revealed significant pneumoperitoneum. An NG tube was placed. Review of Systems Constitutional Constitutional: Reports chills and Denies fever(s) Cardiovascular Cardiovascular: Denies chest pain Respiratory Respiratory: Reports cough Gastrointestinal Gastrointestinal: Reports abdominal pain and Reports nausea Genitourinary Genitourinary: Denies difficulty voiding Musculoskeletal Musculoskeletal: Reports back pain Hematologic/Lymphatic Hematologic/Lymphatic: Denies easy bleeding and Denies easy bruising Past Medical History Surgical History OTHER SURGICAL HX: Hip replacement, bilateral knee replacement, vaginal hysterectomy, varicose vein excision, bone spur, back surgery, implantation of pain stimulator Social History SMOKING STATUS: Never smoker SUBSTANCE USE: does not use ALCOHOL: Never Meds Home Medications and Allergies Home Medications ?Medication ?Instructions ?Recorded ?Confirmed ?Type calcium 333 mg-vit D3 133 1 tab PO BID 01/26/24 01/26/24 History unit-magnesium 133 mg-zinc 5 mg tablet donepezil 10 mg tablet (Aricept) 10 mg PO QPM 01/26/24 01/26/24 History duloxetine 60 mg capsule,delayed 60 mg PO QDAY 01/26/24 01/26/24 History release (Cymbalta) gabapentin 400 mg capsule 400 mg PO QPM 01/26/24 01/26/24 History losartan 100 mg tablet 100 mg PO QDAY 01/26/24 01/26/24 History meloxicam 15 mg tablet 15 mg PO QDAY 01/26/24 01/26/24 History memantine 10 mg tablet 10 mg PO QAM 01/26/24 01/26/24 History montelukast 10 mg tablet 10 mg PO QPM 01/26/24 01/26/24 History omeprazole 40 mg capsule,delayed 40 mg PO QDAY 01/26/24 01/26/24 History release rosuvastatin 10 mg tablet (Crestor) 10 mg PO QDAY 01/26/24 01/26/24 History tolterodine 4 mg capsule,extended 4 mg PO QDAY 01/26/24 01/26/24 History release 24 hr Allergies Allergy/AdvReac Type Severity Reaction Status Date / Time iodine Allergy Severe HIVES Verified 02/03/24 11:36 Tetracyclines Allergy Unknown Verified 02/03/24 11:36 Exam Vital Signs Temp Pulse Resp BP Pulse Ox O2 Del Method O2 Flow Rate 98.2 F 109 H 19 170/75 H 95 Nasal Cannula 5 02/03/24 07:29 02/03/24 09:21 02/03/24 08:14 02/03/24 09:21 02/03/24 08:14 02/03/24 07:29 02/03/24 08:14 Constitutional Constitutional: moderate distress Routine Abdominal Exam Comments: Abdomen is distended and firm with diffuse peritonitis Results Results: Laboratory Laboratory results: results reviewed Results: Imaging CT scan - abdomen: report reviewed and image reviewed CT scan - pelvis: report reviewed and image reviewed Assessment & Plan Additional Assessment Additional comments: Perforated viscus with pneumoperitoneum, COVID-positive with recent pneumonia Plan Exploratory laparotomy, possible bowel resection, possible colostomy. Risks include but not limited to infection, bleeding, injury to bowel, bladder, ureter, spleen, surround neurovascular structures, abdominal sepsis and or abdominal abscess, need for further procedure and or operation, possible need for prolonged ventilator support, pneumonia, blood clot, heart attack, stroke and discussed with the patient and her daughter. Benefits and alternative discussed with them, all their questions answered, they agreed and consented to proceed with the operation.
[2024-02-03 10:04] LABS: Alanine Aminotransferase 8 U/L (10-49); Albumin, Serum 3.9 gm/dL (3.4-4.8); Albumin/Globulin Ratio 1.4 (1.2-2.2); Alkaline Phosphatase 83 U/L (46-116); Anion Gap 10 (7-16); Aspartate Amino Transferase 15 U/L (0-34); BUN/Creatinine Ratio 13 Ratio (12-20); Bilirubin,Total 0.6 mg/dL (0.3-1.2); Blood Urea Nitrogen 17 mg/dL (9-23); Calcium 9.2 mg/dL (8.3-10.6); Calcium (Corrected) 9.3 mg/dL (8.5-10.1); Carbon Dioxide 23.9 mMol/L (20.0-31.0); Chloride 110 mMol/L (98-107); Creatinine (Component) 1.3 mg/dL (0.6-1.3); Estimated Creatinine Clearance 33.9 mL/min (>60); Globulin 2.7 gm/dL (2.3-3.5); Glucose 113 mg/dL (74-106); Osmolality,Calculated 289 (275-295); Potassium 3.5 mMol/L (3.4-5.1); Sodium 144 mMol/L (136-145); Total Protein 6.6 gm/dL (5.7-8.2); eGFR 40 See Note
--- NOTE | 2024-02-03 11:58 | PC.NURSE ---
report given to rosamaria from OR patient taken to surgery now
--- NOTE | 2024-02-03 14:32 | XR_ITS ---
Examination: Abdomen AP single view Technique: AP portable supine abdomen, single view Exam date and time: February 03, 2024 1442 hrs. Indications: Incorrect instrument count Findings: Air distended small bowel loops Tracheal tube tip 4 cm above hossein Pleural and parenchymal disease both bases Orogastric tube in the distal stomach Air distended colon No opaque foreign body is visualized projecting within the chest or abdomen Impression: No instrument foreign body projects within the chest or abdomen
--- NOTE | 2024-02-03 15:15 | SUR.PHASEI ---
1515 Recovery started in OR 5 due to patient being covid positive, patient resting comfortably in [facility], on oxygen 10L via oxy mask with an oral airway in place, breathing unlabored, vital signs stable, dressing intact to abdomen; kamar, adaptic, gauze, medipore tape, abdominal binder, no bleeding noted, NG tube in place to left nares at 73, yellow fluid in tubing, on low, continuous suction, urinary catheter 16F in place with leg secure draining to gravity, lung sounds clear upon auscultation, bilateral radial pulses present when palpated, report recieved from Vu RN and Isacc COELLO
--- NOTE | 2024-02-03 15:35 | ESOP_ITS ---
Date of Procedure 02/03/24 Pre Op Diagnosis Pneumoperitoneum Post Op Diagnosis Perforated sigmoid colon Necrotic with significant distention of cecum and descending colon Hard and calcified pelvic mass Procedure Exploratory laparotomy, sigmoid colectomy with low pelvic anastomosis Right colectomy Excision of pelvic mass Findings Stricture and perforation of sigmoid colon. A hard and calcified mass was adjacent to the area of perforation. Significantly distended and necrotic appearing cecum and ascending colon. No evidence of purulent or feculent peritonitis. Anesthesia GETA and local Pathology / specimen Other (Sigmoid colon, right colon, pelvic mass) Estimated Blood Loss 50 Condition Stable Disposition PACU Surgeon Sally Ayala MD Surgical Staff Operation Date: 02/03/24 12:00 Case Staff CERTIFIED INCOME TAX PREPARER: Eugenio Lainez RNmarket development manager: Clara Calvin
--- NOTE | 2024-02-03 16:30 | SUR.PHASEI ---
1622 Report given to Owen JACOBS, patient meets discharge criteria from recovery, sleeping in [facility], able to arouse with verbal prompting, on oxygen 8L via oxy mask, breathing unlabored, vital signs stable, denies pain, dressing intact with abdominal binder; no bleeding noted, NG tube in place at 73 left nare, urinary catheter in place draining to gravity, denies nausea 1630 patient transported via [facility] to room 276 without incident, Owen JACOBS promptly in patients room along with E LEARNING SPECIALIST who assisted in transferring patient from [facility], patient resting comfortably in bed, her family arrived.
--- NOTE | 2024-02-03 16:43 | ESPR_ITS ---
<Statement entered by Alejandro Truong MD - 02/05/24 07:36> Senior Resident Attestation: I supervised/discussed management plan with resident physician Dr. Russell, and was involved in the care of this patient. I personally saw and examined the patient and discussed the assessment and plan with the entire medicine team, including my attending. Patient's care was discussed with attending physician, Dr. Mustapha Truong MD PGY-3 Documentation for date of: 02/03/24 Subjective Subjective Interval history: No acute overnight events. Patient seen and examined at bedside. Labs reviewed. Patient endorsed abdominal pain throuhout. She endorses shortness of breath and cough. Per daughter at bedside, cough has been very productive but clear. She denies headache, fever, chills, chest pain, palpitation, dizziness, nausea, vomiting. Patient unable to state if she had any bowel movements or not. Surgical team has been consulted; surgery intervention pending. Will keep patient NPO. Exam Vital Signs Temp Pulse Resp BP Pulse Ox O2 Del Method O2 Flow Rate 98.1 F 101 H 12 166/87 H 95 Nasal Cannula 120 02/03/24 15:45 02/03/24 16:00 02/03/24 16:00 02/03/24 16:00 02/03/24 16:00 02/03/24 07:29 02/03/24 16:00 Narrative Exam Constitutional: well-developed, well-nourished, in mild distress, on nasal cannula HEENT: NCAT, EOMI, reactive round pupils b/l, patent nares b/l, moist mucous membranes Lung: CTAB, no wheezing, no rhonchi Heart: Regular S1S2, no murmurs, gallops, or rubs Abdomen: Firm, distended, non-tender on palpation. Hypoactive bowel sounds. Extremities: No cyanosis, clubbing, or edema, 1+ dorsalis pedis pulses present b/l Neurologic: AOx1, appropriate affect Skin: Warm, dry, no lesions or rashes noted Objective Labs 02/04/24 05:04 02/04/24 05:04 Labs: Laboratory Results - last 24 hr 02/02/24 02/02/24 02/03/24 19:50 20:00 00:02 WBC 15.7 H RBC 3.74 L Hgb 12.1 Hct 36.6 MCV 98 MCH 32.4 MCHC 33.1 RDW Std Deviation 48.9 H Plt Count 190 D Neut % (Auto) 73 Lymph % (Auto) 6 L [place] % (Auto) 19 H Eos % (Auto) 0 Baso % (Auto) 0 Neut # (Auto) 11.4 H Lymph # (Auto) 0.9 L [place] # (Auto) 3.0 H Eos # (Auto) 0.1 Baso # (Auto) 0.0 Immature Gran # (Auto) 0.34 H Absolute Nucleated RBC 0.00 Immature Gran % 2 H Nucleated RBC % 0 PT 11.9 INR 1.1 APTT 31.6 D Sodium 141 Potassium 3.5 Chloride 108 H Carbon Dioxide 24.4 Anion Gap 9 BUN 18 Creatinine 1.6 H D Estim Creat Clear Calc 27.5 L eGFR 31 L BUN/Creatinine Ratio 11 L Glucose 173 H D Calculated Osmolality 287 Lactic Acid 1.1 Calcium 9.8 Corrected Calcium 9.9 Phosphorus Magnesium Total Bilirubin 0.5 AST 17 ALT 9 L Alkaline Phosphatase 88 Troponin I 0.034 B-Natriuretic Peptide 322 H Total Protein 6.7 Albumin 3.9 Globulin 2.8 Albumin/Globulin Ratio 1.4 Lipase 24 Procalcitonin 0.64 H Ur Collection Type Cancelled Urine Color Cancelled Urine Clarity Cancelled Urine pH Cancelled Ur Specific [place] Cancelled Urine Protein Cancelled Urine Glucose (UA) Cancelled Urine Ketones Cancelled Urine Blood Cancelled Urine Nitrite Cancelled Urine Bilirubin Cancelled Urine Urobilinogen (Auto) Cancelled Ur Leukocyte Esterase Cancelled Urine RBC Cancelled Urine WBC Cancelled Ur Squamous Epith Cells Cancelled Ur Transition Epith Cell Cancelled Ur Renal Epithelial Cell Cancelled Calcium Carbonate Cryst Cancelled Calcium Phosphate Cryst Cancelled Calcium Oxalate Crystal Cancelled Leucine Crystals Cancelled Cystine Crystals Cancelled Uric Acid Crystals Cancelled Triple Phos Crystals Cancelled Tyrosine Crystals Cancelled Amorphous Crystals Cancelled Urine Bacteria Cancelled Cellular Casts Cancelled Epithelial Casts Cancelled Fatty Casts Cancelled Hyaline Casts Cancelled Granular Casts Cancelled Waxy Casts Cancelled Broad Casts Cancelled RBC Casts Cancelled Urine Mucus Cancelled Urine Trichomonas Cancelled Ur Yeast w [place] Cancelled Urine Yeast (Budding) Cancelled Urine Sperm Cancelled Ur Oval Fat Bodies Cancelled Blood Type Antibody Screen Blood Bank Wristband ID 02/03/24 02/03/24 02/03/24 02:22 04:52 08:59 WBC 14.5 H 16.2 H RBC 3.36 L 3.64 L Hgb 10.9 L 11.8 L Hct 33.6 L 36.5 MCV 100 100 MCH 32.4 32.4 MCHC 32.4 32.3 RDW Std Deviation 51.1 H 51.6 H Plt Count 167 181 Neut % (Auto) 68 67 Lymph % (Auto) 7 L 6 L [place] % (Auto) 21 H 24 H Eos % (Auto) 1 1 Baso % (Auto) 0 0 Neut # (Auto) 9.8 H 10.8 H Lymph # (Auto) 1.0 1.0 [place] # (Auto) 3.1 H 3.8 H Eos # (Auto) 0.1 0.1 Baso # (Auto) 0.0 0.0 Immature Gran # (Auto) 0.43 H 0.41 H Absolute Nucleated RBC 0.03 H 0.00 Immature Gran % 3 H 3 H Nucleated RBC % 0 0 PT INR APTT Sodium 143 144 Potassium 3.4 3.5 Chloride 111 H 110 H Carbon Dioxide 23.8 23.9 Anion Gap 8 10 BUN 16 17 Creatinine 1.3 1.3 Estim Creat Clear Calc 33.9 L 33.9 L eGFR 40 L 40 L BUN/Creatinine Ratio 12 13 Glucose 126 H 113 H Calculated Osmolality 288 289 Lactic Acid 0.9 Calcium 8.8 9.2 Corrected Calcium 9.1 9.3 Phosphorus 4.0 Magnesium 1.8 Total Bilirubin 0.5 0.6 AST 13 15 ALT 8 L 8 L Alkaline Phosphatase 79 83 Troponin I B-Natriuretic Peptide Total Protein 6.1 6.6 Albumin 3.6 3.9 Globulin 2.5 2.7 Albumin/Globulin Ratio 1.4 1.4 Lipase Procalcitonin Ur Collection Type Urine Color Urine Clarity Urine pH Ur Specific [place] Urine Protein Urine Glucose (UA) Urine Ketones Urine Blood Urine Nitrite Urine Bilirubin Urine Urobilinogen (Auto) Ur Leukocyte Esterase Urine RBC Urine WBC Ur Squamous Epith Cells Ur Transition Epith Cell Ur Renal Epithelial Cell Calcium Carbonate Cryst Calcium Phosphate Cryst Calcium Oxalate Crystal Leucine Crystals Cystine Crystals Uric Acid Crystals Triple Phos Crystals Tyrosine Crystals Amorphous Crystals Urine Bacteria Cellular Casts Epithelial Casts Fatty Casts Hyaline Casts Granular Casts Waxy Casts Broad Casts RBC Casts Urine Mucus Urine Trichomonas Ur Yeast w [place]pha[place] Urine Yeast (Budding) Urine Sperm Ur Oval Fat Bodies Blood Type A Positive Antibody Screen NEGATIVE Blood Bank Wristband ID Yes Quality Measures Quality Measures none Advance care planning discussed with:: patient Assessment & Plan Assessment Current Active Medications: Generic Name Dose Route Start Last Admin Trade Name Freq PRN Reason Stop Dose Admin Acetaminophen 650 mg 02/03/24 02:20 Acetaminophen Supp 650 Mg Supp NM 03/04/24 02:19 Q6HR PRN Fever > 100.4 Amlodipine Besylate 5 mg 02/03/24 09:00 02/03/24 09:21 Amlodipine Besylate 5 Mg Tablet PO 03/04/24 08:59 5 mg QDAY SAIRA Administration Atorvastatin Calcium 40 mg 02/03/24 21:00 Atorvastatin Calcium 20 Mg Tablet PO 03/04/24 20:59 2100 SAIRA Donepezil HCl 10 mg 02/03/24 21:00 Donepezil Hcl 5 Mg Tablet PO 03/04/24 20:59 QPM SAIRA Fentanyl Citrate 50 mcg 02/03/24 15:28 Fentanyl Cit Inj 50 Mcg/Ml Amp 2ml IV 02/03/24 17:28 Q5M PRN PAIN SCALE 4-6 (Moderate Gabapentin 400 mg 02/03/24 21:00 Gabapentin 100 Mg Capsule PO 03/04/24 20:59 QPM SAIRA Piperacillin/Tazobactam/Dextrose 50 mls @ 12.5 mls/hr 02/03/24 14:00 Zosyn IV 02/10/24 13:59 Q8HR SAIRA Protocol Vancomycin/Sodium Chloride 750 mg in 150 mls @ 120 mls/hr 02/03/24 22:00 Vancomycin/Ns 750 Mg Ivpb IV 02/10/24 21:59 QDAY@2200 SAIRA Acetaminophen 1,000 mg in 100 mls @ 250 mls/hr 02/03/24 15:28 Ofirmev Inj IV 02/04/24 15:27 Q6HR PRN PAIN SCALE 4-10(Mod-Sev Labetalol HCl 10 mg 02/03/24 04:44 Labetalol Inj 5 Mg/Ml Vial 20 Ml IVP 03/04/24 04:43 Q4H PRN Hypertension Memantine 10 mg 02/03/24 09:00 02/03/24 09:22 Memantine Hcl 5 Mg Tablet PO 03/04/24 08:59 10 mg QAM SAIRA Administration Morphine Sulfate 2 mg 02/03/24 02:26 Morphine Sulf Inj 10 Mg/Ml Vial IVP 02/08/24 02:25 Q4H PRN PAIN SCALE 7-10 (Severe Ondansetron HCl 4 mg 02/03/24 02:20 Ondansetron Inj 2 Mg/Ml Inj 2 Ml IV 03/04/24 02:19 Q6H PRN NAUSEA OR VOMITING Protocol Pantoprazole Sodium 40 mg 02/03/24 09:00 02/03/24 08:54 Pantoprazole Inj 40 Mg Vial IVP 03/04/24 08:59 40 mg QDAY SAIRA Administration Pharmacy Consult 1 each 02/03/24 09:00 Vancomycin Pharmacy To Dose 1 Each Each IV 03/04/24 08:59 QDAY PRN CONSULT Plan An 88-year-old female patient with significant medical history for abdominal aortic aneurysm s/p stents, HLD, HTN, GERD, asthma and dementia presented to the ED of [facility] on 02/01 for distended abdomen. Patient was recently admitted to [facility] on 01/26/2024 and discharged on 02/01/2024 for septic pneumonia and RUDDY. In ED, BP 165/92, pulse 123, respiratory rate 26 and temperature 100.4 F, leukocytosis 15.7, creatinine 1.6 (baseline 1.1), lactic acid 1.1, BNP 322 and procalcitonin of 0.64. Abdomen/pelvis CT showed massive pneumoperitoneum, hyperdensity in the stomach with marked mucosal thickening, gastritis pattern with possible gastrointestinal bleeding, multiple air densities in the wall of the stomach suspicious for gastric perforation causing the pneumoperitoneum, gallbladder wall thickening. Patient was admitted for pneumoperitoneum management, requiring surgical intervention. #Sepsis, most likely secondary to #Pneumoperitoneum #Leukocytosis Patient was found to have distended abdomen upon recent EGD and colonoscopy done in the hospital. She met 4 out of 4 SIRS criteria for sepsis:pulse 123, respiratory rate 26 and temperature 100.4 F, leukocytosis 15.7, Patient appeared to have hypoactive bowel sounds. Abdomen pelvis imaging indicative of pneumoperitoneum on this admission. Procalcitonin 0.64, lactic acid 1.1. Plan: ? General Surgeon Dr. Ayala consulted; recommendations for exploratory laparotomy, possible bowel resection, possible colostomy. ?Expiratory laparotomy to be completed today 02/03/24 ? GI Dr. Hsu consulted, recommendations greatly appreciated ?IV Vanco pharmacy to dose and Zosyn IV 3.375 gm every 8 hours ? N.p.o.; advance diet per surgery recommendations ? Follow-up CBC and CMP #Hospital acquired pneumonia Patient endorses new onset productive cough x 2 days. She was febrile, tachycardic, and tachypneic on presented. She resides in a longterm facility, exposing her to increased infection and sick contacts. Patient recently admitted for septic pneumonia, discharged on p.o. Augmentin. Patient failed oral antibiotics as she now resulted COVID +. Procalcitonin 0.64. COVID +. Plan: ? Antibiotics for pneumoperitoneum provides coverage for pneumonia ? DuoNebs as needed ? Blood cultures pending ? Tylenol suppository as needed for fever > 100.4 F ? Follow-up CBC #RUDDY, most likely prerenal Most likely prerenal in setting of poor oral intake. Considering her recent pneumonia, patient has not had much of an appetite. Patient with creatinine 1.4, downtrended to 1.3 (baseline 1-1.1), GFR 40. Plan: ? Encourage increased oral intake after laparotomy as tolerated by patient. ? Avoid nephrotoxin ? Renally dose medications #History of dementia Patient takes donepezil and memantine. - donepezil and memantine #History of AAA status post stents The patient has a history of AAA s/p stents. Patient is on reports that she follows Dr. Pro. Frequent appointments, every 6 months with creative perfumer. Plan: ? Follow-up outpatient #Incidental finding of liver and splenic lesions CT abdomen and pelvis showed some previous history of lesions. 01/30/2024- MRI abdomen with liver protocol done showed multiple liver lesions as well as spleen and renal consistent with simple cysts -follow-up with ultrasound in 6 months per recommendations Health Maintenance Dispo: Patient admitted for pneumoperitoneum, general surgeon consulted. Diet: N.p.o. DVT/PPx: SCD GI ppx: Protonix Lines: Thorpe catheter Code Status: Full code Discussed case with my attending Dr. Luciano and senior Alejandro Truong, PGY-3. Thank you, Courtney Russell, PGY-2 Attending Provider Attestation/Addendum I have discussed and was present for the essential components of the history, physical examination, diagnosis, and treatment plan with the resident. I agree with the patient's care as documented by the resident and amended herein by me. Todd Luciano, Although this document has been carefully reviewed, there may still be some phonetic and other typographical errors. These errors are purely grammatical due to imperfections in the software program and should not be construed in any way to compromise the substance of the patient's medical care during this visit.
--- NOTE | 2024-02-03 19:47 | PD.IMCONS ---
HPI Data of Consult Requesting Physician: Randy Roberto MD Primary Care Provider: Lambert Hansen MD Consult Narrative Reason for consult: Pain abdomen abnormal CTA chest abdomen and pelvis History of present illness: 88-year-old female was brought into the emergency room for abdominal pain CTA chest abdomen and pelvis showed no pulmonary embolism pneumoperitoneum multiple liver cysts air density in the distal gastric wall Case was discussed with me by the ER physician asked him to place an NGT and start the patient on broad-spectrum antibiotics and recommend surgical consultation Patient was seen by me on 01/28/2024 with the anemia and blood loss drop in hemoglobin hematocrit Upper endoscopy during that hospitalization showed large gastric hiatal hernia about 5 to 6 cm Gastritis Colonoscopy showed severe diverticulosis with narrowing of the sigmoid colon Colonoscopy not go through it upper endoscope had to be used to go to this narrowed segment all the way up to the hepatic flexure There was postprocedure distention but patient passed the gas she had a bowel movement and did very well next day and was discharged Patient now had a sudden onset of abdominal pain and discomfort and was brought back into the emergency room cc:: cc: Randy Roberto MD Review of Systems Review of Systems Systems Reviewed: All systems reviewed, normal except as documented Past Medical History Surgical History OTHER SURGICAL HX: Aortoiliac stenting for peripheral vascular disease Dementia Liver cysts Hiatal hernia Meds Home Medications and Allergies Home Medications ?Medication ?Instructions ?Recorded ?Confirmed ?Type calcium 333 mg-vit D3 133 1 tab PO BID 01/26/24 01/26/24 History unit-magnesium 133 mg-zinc 5 mg tablet donepezil 10 mg tablet (Aricept) 10 mg PO QPM 01/26/24 01/26/24 History duloxetine 60 mg capsule,delayed 60 mg PO QDAY 01/26/24 01/26/24 History release (Cymbalta) gabapentin 400 mg capsule 400 mg PO QPM 01/26/24 01/26/24 History losartan 100 mg tablet 100 mg PO QDAY 01/26/24 01/26/24 History meloxicam 15 mg tablet 15 mg PO QDAY 01/26/24 01/26/24 History memantine 10 mg tablet 10 mg PO QAM 01/26/24 01/26/24 History montelukast 10 mg tablet 10 mg PO QPM 11/09/24 11/09/24 History omeprazole 40 mg capsule,delayed 40 mg PO QDAY 01/26/24 01/26/24 History release rosuvastatin 10 mg tablet (Crestor) 10 mg PO QDAY 01/26/24 01/26/24 History tolterodine 4 mg capsule,extended 4 mg PO QDAY 01/26/24 01/26/24 History release 24 hr Allergies Allergy/AdvReac Type Severity Reaction Status Date / Time iodine Allergy Severe HIVES Verified 02/03/24 11:36 Tetracyclines Allergy Unknown Verified 02/03/24 11:36 Exam Vital Signs Temp Pulse Resp BP Pulse Ox O2 Del Method O2 Flow Rate 97.7 F 109 H 23 H 137/84 H 95 Oxy Mask 8 02/03/24 16:50 02/03/24 16:50 02/03/24 16:50 02/03/24 16:50 02/03/24 16:50 02/03/24 16:50 02/03/24 16:50 Constitutional Comments: Chronically ill-appearing Routine Respiratory Exam Comments: Normal to auscultation Routine Abdominal Exam Comments: Distended abdomen Results Labs 02/03/24 08:59 02/03/24 08:59 Labs: Short CBC 02/02/24 02/03/24 02/03/24 Range/Units 19:50 04:52 08:59 WBC 15.7 H 14.5 H 16.2 H (3.6-11.0) Thou/mm3 Hgb 12.1 10.9 L 11.8 L (12.0-16.0) g/dL Hct 36.6 33.6 L 36.5 (36.0-46.0) % Plt Count 190 D 167 181 (140-440) Thou/mm3 BMP 02/02/24 02/03/24 02/03/24 19:50 04:52 08:59 Sodium 141 143 144 Potassium 3.5 3.4 3.5 Chloride 108 H 111 H 110 H Carbon Dioxide 24.4 23.8 23.9 BUN 18 16 17 Creatinine 1.6 H D 1.3 1.3 Glucose 173 H D 126 H 113 H Calcium 9.8 8.8 9.2 Cardiac Enzymes 02/02/24 Range/Units 19:50 Troponin I 0.034 (0.0-0.045) ng/mL Liver Function 02/02/24 02/03/24 02/03/24 Range/Units 19:50 04:52 08:59 Total Bilirubin 0.5 0.5 0.6 (0.3-1.2) mg/dL AST 17 13 15 (0-34) U/L ALT 9 L 8 L 8 L (10-49) U/L Alkaline Phosphatase 88 79 83 (46-116) U/L Albumin 3.9 3.6 3.9 (3.4-4.8) gm/dL Urine 02/02/24 Range/Units 20:00 Urine Color Cancelled Urine Clarity Cancelled Urine pH Cancelled Ur Specific [place] Cancelled Urine Protein Cancelled Urine Glucose (UA) Cancelled Assessment and Plan Additional Assessment & Plan Additional Plan: # After assessing the clinical picture clinical presentation reviewing the imaging study Findings of the CT scan showing air droplets in the gastric wall is a right hearing The only suspected perforation most likely is the left colon or may be another acute colonic event in the setting of her peripheral vascular disease Plan Continue broad-spectrum antibiotics Surgical exploration Discussed the case with Dr. Ayaal Also spoke with her daughter at length Thank you once again for the opportunity to participate in the care of this patient
--- NOTE | 2024-02-03 19:52 | PD.ADDCONS ---
Addendum Consultation Addendum Date of report being addended: 02/03/24 Narrative: Intraoperative findings discussed with Dr. Ayala Intraoperatively patient had distended cecum ischemic looking requiring removal of the right colon Removal of the sigmoid colon and primary anastomosis of the descending colon to the rectum With the endovascular stent into the aortoiliac circulation Patient most likely had an ischemic event Called her daughter postoperatively and discussed the findings with them There was no fecal contamination so primary anastomosis can be made that means the perforation occurred in the last 24 hours
[2024-02-03] MEDS: VANCOMYCIN/NS 750 MG IVPB 750 MG/150 ML BAG 120 MG IV (21:31)
[2024-02-03] MEDS: PIPER/TAZO 3.375 GM 50 ML IV (22:52)
[2024-02-04] VITALS (10 sets, daily range): BP systolic 118–154; BP diastolic 76–94; PULSE 99–119; RESP 13–29; TEMP 36.3–37.1; O2SAT 95–99; BMI 31.4; BMI 31.2
[2024-02-04] MEDS: PIPER/TAZO 3.375 GM 50 ML IV ×3 (05:42→21:30)
[2024-02-04 05:58] LABS: Basophils # (Auto) 0.1 Thou/mm3 (0.0-0.2); Basophils % (Auto) 0 % (0-2.5); Eosinophils % (Auto) 0 % (0-10); Hematocrit 34.2 % (36.0-46.0); Hemoglobin 10.9 g/dL (12.0-16.0); Immature Granulocytes % (Auto) 2 % (0-0); Immature Granulocytes Auto 0.51 Thou/mm3 (0.00-0.00); Lymphocytes # (Auto) 0.6 Thou/mm3 (1.0-4.8); Lymphocytes % (Auto) 2 % (10-50); Mean Corpuscular HGB Conc 31.9 g/dl (31.0-37.0); Mean Corpuscular Hemoglobin 32.2 pg (25.0-35.0); Mean Corpuscular Volume 101 fL (80-100); Monocytes # (Auto) 5.2 Thou/mm3 (0.0-0.8); Monocytes % (Auto) 18 % (0-12); Neutrophils # (Auto) 22.6 Thou/mm3 (1.8-7.7); Neutrophils % (Auto) 78 % (37-80); Nucleated Red Blood Cell % 0 /100 WBC (0); Platelet Count 179 Thou/mm3 (140-440); RDW Standard Deviation 52.6 fL (36.4-46.3); Red Blood Count 3.39 Miln/mm3 (4.00-5.20); White Blood Count 28.9 Thou/mm3 (3.6-11.0)
[2024-02-04 06:38] LABS: Alanine Aminotransferase 11 U/L (10-49); Albumin, Serum 3.2 gm/dL (3.4-4.8); Albumin/Globulin Ratio 1.3 (1.2-2.2); Alkaline Phosphatase 69 U/L (46-116); Anion Gap 11 (7-16); Aspartate Amino Transferase 36 U/L (0-34); BUN/Creatinine Ratio 16 Ratio (12-20); Bilirubin,Total 0.5 mg/dL (0.3-1.2); Blood Urea Nitrogen 21 mg/dL (9-23); Calcium 8.5 mg/dL (8.3-10.6); Calcium (Corrected) 9.1 mg/dL (8.5-10.1); Carbon Dioxide 20.6 mMol/L (20.0-31.0); Chloride 114 mMol/L (98-107); Creatinine (Component) 1.3 mg/dL (0.6-1.3); Estimated Creatinine Clearance 32.4 mL/min (>60); Globulin 2.4 gm/dL (2.3-3.5); Glucose 127 mg/dL (74-106); Osmolality,Calculated 295 (275-295); Potassium 3.6 mMol/L (3.4-5.1); Sodium 146 mMol/L (136-145); Total Protein 5.6 gm/dL (5.7-8.2); eGFR 40 See Note
--- NOTE | 2024-02-04 08:13 | PD.SURPROG ---
Documentation for date of: 02/04/24 Subjective Subjective Narrative: Patient is seen and examined. She is resting, pain is controlled Exam Vital Signs Temp Pulse Resp BP Pulse Ox O2 Del Method O2 Flow Rate 98.2 F 99 17 123/76 96 Oxy Mask 4 02/04/24 04:00 02/04/24 07:45 02/04/24 07:45 02/04/24 04:00 02/04/24 07:45 02/04/24 04:00 02/04/24 07:45 Constitutional Constitutional: no acute distress Routine Abdominal Exam Abdominal: Present soft, tenderness (Veronica-incisional tenderness. Incision with dressings clean, dry and intact) and distended; Absent normoactive bowel sounds Assessment & Plan Assessment Additional comments: Postop day #1 status post sigmoid colectomy, right colectomy and excision of pelvic mass Plan Keep n.p.o., continue NG tube to low intermittent suction. Will start patient on PPN. Continue IV antibiotics. Use incentive spirometer and increase ambulation Procedures Procedures Exploratory laparotomy, sigmoid colectomy with low pelvic anastomosis Right colectomy Excision of pelvic mass
[2024-02-04] MEDS: PANTOPRAZOLE INJ 40 MG VIAL IVP (09:00)
[2024-02-04] MEDS: ZINC SULFATE 220 MG CAPSULE PO (09:01)
[2024-02-04] MEDS: DOCUSATE SOD 100 MG CAPSULE PO (09:01)
[2024-02-04] MEDS: MEMANTINE HCL 5 MG TABLET 10 MG PO (09:01)
[2024-02-04] MEDS: ASCORBIC ACID 250 MG TABLET 500 MG PO (09:01)
[2024-02-04] MEDS: amLODIPine BESYLATE 5 MG TABLET PO (09:01)
[2024-02-04] MEDS: MORPHINE SULF INJ 10 MG/ML VIAL 2 MG IVP ×2 (09:03→14:59)
[2024-02-04 09:17] LABS: Triglycerides 100 mg/dL (30-150)
[2024-02-04] MEDS: SODIUM CHLORIDE 0.9% 1000 ML 1,000 ML 75 ML IV (10:04)
[2024-02-04] MEDS: dexAMETHasone 6 MG TABLET PO (10:57)
--- NOTE | 2024-02-04 12:24 | ESPR_ITS ---
<Statement entered by Alejandro Truong MD - 02/05/24 07:35> Senior Resident Attestation: I supervised/discussed management plan with resident physician Dr. Russell, and was involved in the care of this patient. I personally saw and examined the patient and discussed the assessment and plan with the entire medicine team, including my attending. Patient's care was discussed with attending physician, Dr. Mustapha Truong MD PGY-3 Documentation for date of: 02/04/24 Subjective Subjective Interval history: No acute overnight events. No bowel movements this morning. Patient seen and examined at bedside. Labs reviewed. Patient endorsed abdominal discomfort. She was witnessed coughing and endorses shortness of breath. Patient appears relatively lethargic at bedside. Surgical team has been consulted; surgery intervention pending. Will keep patient NPO. Exam Vital Signs Temp Pulse Resp BP Pulse Ox O2 Del Method O2 Flow Rate 98.8 F 111 H 28 H 154/94 H 95 Nasal Cannula 4 02/04/24 08:00 02/04/24 09:01 02/04/24 08:00 02/04/24 09:01 02/04/24 08:00 02/04/24 08:00 02/04/24 08:00 Narrative Exam Constitutional: well-developed, well-nourished, coughing with daughter at bedside. HEENT: NCAT, EOMI, reactive round pupils b/l, moist mucous membranes Lung: CTAB, no wheezing, no rhonchi, O2 sat 95% on 4 L oxy mask Heart: Regular S1S2, no murmurs, gallops, or rubs Abdomen: Firm with abdominal Binder. Extremities: No cyanosis, clubbing, or edema, 1+ dorsalis pedis pulses present b/l Neurologic: AOx1, appropriate affect Skin: Warm, dry, no lesions or rashes noted Objective Labs 02/04/24 05:04 02/04/24 05:04 Labs: Laboratory Results - last 24 hr 02/04/24 05:04 WBC 28.9 H D RBC 3.39 L Hgb 10.9 L Hct 34.2 L MCV 101 H MCH 32.2 MCHC 31.9 RDW Std Deviation 52.6 H Plt Count 179 Neut % (Auto) 78 Lymph % (Auto) 2 L [place] % (Auto) 18 H Eos % (Auto) 0 Baso % (Auto) 0 Neut # (Auto) 22.6 H Lymph # (Auto) 0.6 L [place] # (Auto) 5.2 H Eos # (Auto) 0.0 Baso # (Auto) 0.1 Immature Gran # (Auto) 0.51 H Absolute Nucleated RBC 0.00 Immature Gran % 2 H Nucleated RBC % 0 Sodium 146 H Potassium 3.6 Chloride 114 H Carbon Dioxide 20.6 Anion Gap 11 BUN 21 Creatinine 1.3 Estim Creat Clear Calc 32.4 L eGFR 40 L BUN/Creatinine Ratio 16 Glucose 127 H Calculated Osmolality 295 Calcium 8.5 Corrected Calcium 9.1 Total Bilirubin 0.5 AST 36 H ALT 11 Alkaline Phosphatase 69 Total Protein 5.6 L Albumin 3.2 L D Globulin 2.4 Albumin/Globulin Ratio 1.3 Triglycerides 100 Random Vancomycin 18.0 Quality Measures Quality Measures none Advance care planning discussed with:: patient Assessment & Plan Assessment Current Active Medications: Generic Name Dose Route Start Last Admin Trade Name Freq PRN Reason Stop Dose Admin Amlodipine Besylate 5 mg 02/03/24 09:00 02/04/24 09:01 Amlodipine Besylate 5 Mg Tablet PO 03/04/24 08:59 5 mg QDAY SAIRA Administration Ascorbic Acid 500 mg 02/03/24 21:00 02/04/24 09:01 Ascorbic Acid 250 Mg Tablet PO 03/04/24 20:59 500 mg BID SAIRA Administration Atorvastatin Calcium 40 mg 02/03/24 21:00 02/03/24 21:31 Atorvastatin Calcium 20 Mg Tablet PO 03/04/24 20:59 Not Given 2100 SAIRA Dexamethasone 6 mg 02/04/24 10:45 02/04/24 10:57 Dexamethasone 6 Mg Tablet PO 03/05/24 10:44 6 mg QDAY SAIRA Administration Protocol Docusate Sodium 100 mg 02/03/24 21:00 02/04/24 09:01 Docusate Sod 100 Mg Capsule PO 03/04/24 20:59 100 mg BID SAIRA Administration Protocol Donepezil HCl 10 mg 02/03/24 21:00 02/03/24 21:31 Donepezil Hcl 5 Mg Tablet PO 03/04/24 20:59 Not Given QPM SAIRA Gabapentin 400 mg 02/03/24 21:00 02/03/24 21:31 Gabapentin 100 Mg Capsule PO 03/04/24 20:59 Not Given QPM SAIRA Piperacillin/Tazobactam/Dextrose 50 mls @ 12.5 mls/hr 02/03/24 14:00 02/04/24 05:42 Zosyn IV 02/10/24 13:59 12.5 mls/hr Q8HR SAIRA Administration Protocol Vancomycin/Sodium Chloride 750 mg in 150 mls @ 120 mls/hr 02/03/24 22:00 02/03/24 21:31 Vancomycin/Ns 750 Mg Ivpb IV 02/10/24 21:59 120 mls/hr QDAY@2200 SAIRA Administration Sodium Chloride 1,000 mls @ 75 mls/hr 02/04/24 10:00 02/04/24 10:04 Ns IV 03/05/24 09:59 75 mls/hr .[id number] SAIRA Administration Labetalol HCl 10 mg 02/03/24 04:44 Labetalol Inj 5 Mg/Ml Vial 20 Ml IVP 03/04/24 04:43 Q4H PRN Hypertension Memantine 10 mg 02/03/24 09:00 02/04/24 09:01 Memantine Hcl 5 Mg Tablet PO 03/04/24 08:59 10 mg QAM SAIRA Administration Morphine Sulfate 2 mg 02/03/24 02:26 02/04/24 09:03 Morphine Sulf Inj 10 Mg/Ml Vial IVP 02/08/24 02:25 2 mg Q4H PRN Administration PAIN SCALE 7-10 (Severe Ondansetron HCl 4 mg 02/03/24 02:20 Ondansetron Inj 2 Mg/Ml Inj 2 Ml IV 03/04/24 02:19 Q6H PRN NAUSEA OR VOMITING Protocol Pantoprazole Sodium 40 mg 02/03/24 09:00 02/04/24 09:00 Pantoprazole Inj 40 Mg Vial IVP 03/04/24 08:59 40 mg QDAY SAIRA Administration Pharmacy Consult 1 each 02/03/24 09:00 Vancomycin Pharmacy To Dose 1 Each Each IV 03/04/24 08:59 QDAY PRN CONSULT Zinc Sulfate 220 mg 02/04/24 09:00 02/04/24 09:01 Zinc Sulfate 220 Mg Capsule PO 03/05/24 08:59 220 mg QDAY SIARA Administration Plan An 88-year-old female patient with significant medical history for abdominal aortic aneurysm s/p stents, HLD, HTN, GERD, asthma and dementia presented to the ED of [facility] on 02/01 for distended abdomen. Patient was recently admitted to [facility] on 01/26/2024 and discharged on 02/01/2024 for septic pneumonia and RUDDY. In ED, BP 165/92, pulse 123, respiratory rate 26 and temperature 100.4 F, leukocytosis 15.7, creatinine 1.6 (baseline 1.1), lactic acid 1.1, BNP 322 and procalcitonin of 0.64. Abdomen/pelvis CT showed massive pneumoperitoneum, hyperdensity in the stomach with marked mucosal thickening, gastritis pattern with possible gastrointestinal bleeding, multiple air densities in the wall of the stomach suspicious for gastric perforation causing the pneumoperitoneum, gallbladder wall thickening. Patient was admitted for pneumoperitoneum management, requiring exploratory laparotomy consisting of sigmoid colectomy with low pelvic anastomosis, right colectomy, and excision of pelvic mass. #Sepsis, most likely secondary to #Pneumoperitoneum #Leukocytosis #s/p sigmoid colectomy with low pelvic anastomosis on02/03/24, POD 1 #s/p right colectomy and excision of pelvic mass on 02/03/24, POD 1 Patient was found to have distended abdomen upon recent EGD and colonoscopy done in the hospital. She met 4 out of 4 SIRS criteria for sepsis:pulse 123, respiratory rate 26 and temperature 100.4 F,elevated WBC. Patient appeared to have hypoactive bowel sounds. Abdomen pelvis imaging indicative of pneumoperitoneum, requiring surgery. On 02/03/2024: exploratory laparotomy completed with sigmoid colectomy with low pelvic anastomosis, right colectomy, and excision of pelvic mass. 50cc of blood loss. WBC increased from 16.2 to 28.9. Plan: ?General Surgeon Dr. Ayala consulted; recommended exploratory laparotomy- completed, and PPN ?GI Dr. Hsu consulted, recommended NG tube and continue IV antibiotics ?Dexamethasone 6 mg orally once daily ?Discontinued IV Vanco pharmacy to dose(02/02-02/04/24) ? Zosyn IV 3.375 gm every 8 hours (02/03/24- ?pending PPN ? Follow-up CBC and CMP #Hospital acquired pneumonia Patient endorsed new onset productive cough x 2 days and was febrile, tachycardic, and tachypneic on presentation. She resides in a fdc facility, exposing her to increased infection and sick contacts. Patient recently admitted for septic pneumonia, discharged on p.o. Augmentin. Patient failed oral antibiotics as she now resulted COVID +. Procalcitonin 0.64. COVID +. Blood cultures neg x2 prelim. Plan: ? Antibiotics for pneumoperitoneum provides coverage for pneumonia ? DuoNebs as needed ? Tylenol suppository as needed for fever > 100.4 F ? Follow-up CBC #RUDDY, most likely prerenal Most likely prerenal in setting of poor oral intake. Considering her recent pneumonia, patient has not had much of an appetite. Patient with creatinine 1.4, downtrended to 1.3 (baseline 1-1.1), GFR 40. Plan: ? Encourage increased oral intake after laparotomy as tolerated by patient. ? Avoid nephrotoxin ? Renally dose medications #Macrocytic anemia Differential diagnosis: Folate deficiency anemia versus B12 deficiency anemia Patient recently had surgical intervention which likely resulted in an imbalance of vitamin levels. Hemoglobin 10.9, hematocrit 34.2%, MCV 101. ?Follow-up CBC ?Folate ordered; F/up ?B12 ordered; F/up ?Will closely monitor. #History of dementia Patient takes donepezil and memantine. ?donepezil and memantine #History of AAA status post stents The patient has a history of AAA s/p stents. Patient is on reports that she follows Dr. Pro. Frequent appointments, every 6 months with pedigree researcher. Plan: ? Follow-up outpatient #Incidental finding of liver and splenic lesions CT abdomen and pelvis showed some lesions. 01/30/2024- MRI abdomen with liver protocol done showed multiple liver lesions as well as spleen and renal consistent with simple cysts -follow-up with ultrasound in 6 months per recommendations Health Maintenance Dispo: Patient admitted for pneumoperitoneum, general surgeon consulted, s/p exploratory laparotomy with R. colectomy. Diet: PPN DVT/PPx: SCD GI ppx: Protonix Lines: Thorpe catheter Code Status: Full code Discussed case with my attending Dr. Luciano and senior Alejandro Truong, PGY-3. Thank you, Courtney Russell, PGY-2 Attending Provider Attestation/Addendum I have discussed and was present for the essential components of the history, physical examination, diagnosis, and treatment plan with the resident. I agree with the patient's care as documented by the resident and amended herein by me. Todd Luciano DO. Patient seen and evaluated this AM. In short 88-year-old female with significant past medical history of AAA status post stents, HTN, HLD, GERD, asthma and dementia presented on 1116 for distended abdomen. Patient was recently discharged on 01/31 for pneumonia and RUDDY, patient also had EGD for suspected bleeding as well as colonoscopy prior to discharge on that visit. Patient returned to the ED on 02/01 with findings of massive pneumoperitoneum, she presented septic. She is now postop day 1 for exploratory laparotomy which resulted in a sigmoid colectomy, right colectomy and excision of a calcified pelvic mass that was found. The patient sigmoid colon was found to be perforated right colon was shown to be necrotic with significant distention of the cecum and descending colon, these areas were unable to be visualized during recent colonoscopy due to narrowing of the bowel, the colonoscope was could not be passed into that area. At this time per surgical recommendations, PPN was started, we will also continue the patient on IV antibiotics at this time, appreciate surgery and gastroenterology recommendations. Incentive spirometry also ordered and will mobilize the patient as soon as possible. Although this document has been carefully reviewed, there may still be some phonetic and other typographical errors. These errors are purely grammatical due to imperfections in the software program and should not be construed in any way to compromise the substance of the patient's medical care during this visit.
--- NOTE | 2024-02-04 16:14 | PC.SS ---
Rounding note: patient was recently discharged to [facility]. Will be here several days for PPN and IV abx.
--- NOTE | 2024-02-04 19:03 | PC.NURSE ---
Addendum entered by Owen Ogden RN 02/04/24 19:27: Dr. Ayala ordered Pt to be on PPN in the AM faxed the order to pharmacy and notified radiology interventional physician. Awaiting medication endorsed to plant operator/shift supervisor Original Note: Dr. Ayala ordered Pt to be on TPN in the AM faxed the order to pharmacy and notified radiology interventional physician. Awaiting medication endorsed to plant operator/shift supervisor
--- NOTE | 2024-02-04 19:21 | PC.NURSE ---
Addendum entered by Owen Ogden RN 02/04/24 19:27: Called pharmacy to find out the status of the patients PPN and was told that no orders were received from dietary. Attempted to call security control assessor clay machine operator but was unsuccessful. Endorsed to shift commander. Original Note: Called pharmacy to find out the status of the patients TPN and was told that no orders were received from dietary. Attempted to call security control assessor clay machine operator but was unsuccessful. Endorsed to shift commander.
--- NOTE | 2024-02-04 19:38 | PC.NURSE ---
Addendum entered by Martin Thompson RN 02/04/24 19:41: continuing ns at 75ml/hr Original Note: Notified Willian OROPEZA. unable to start PPN per phapollycy did not receive orders from a flavorer. Tried to call nuclear operations specialist Restaurant Greeterestee Monreal at [phone] x [phone]. Unable to reach a flavorer. aware, unable to start PPN.
--- NOTE | 2024-02-04 22:20 | PC.NURSE ---
notified Uto, per progress note vanco is to be discontinued called MD to confirm. He will get back to me.
--- NOTE | 2024-02-04 23:02 | PC.NURSE ---
confirmed with reanna Dorsey to hold da
[2024-02-05] VITALS (12 sets, daily range): BP systolic 104–177; BP diastolic 59–108; PULSE 79–115; RESP 15–95; TEMP 36.1–36.9; O2SAT 92–97
[2024-02-05] MEDS: PIPER/TAZO 3.375 GM 50 ML IV ×3 (05:25→21:17)
[2024-02-05] MEDS: SODIUM CHLORIDE 0.9% 1000 ML 1,000 ML 75 ML IV (05:25)
[2024-02-05 06:32] LABS: Basophils % (Auto) 0 % (0-2.5); Eosinophils % (Auto) 0 % (0-10); Hematocrit 31.4 % (36.0-46.0); Hemoglobin 10.1 g/dL (12.0-16.0); Immature Granulocytes % (Auto) 3 % (0-0); Lymphocytes # (Auto) 0.4 Thou/mm3 (1.0-4.8); Lymphocytes % (Auto) 2 % (10-50); Mean Corpuscular HGB Conc 32.2 g/dl (31.0-37.0); Mean Corpuscular Hemoglobin 32.9 pg (25.0-35.0); Mean Corpuscular Volume 102 fL (80-100); Monocytes # (Auto) 3.4 Thou/mm3 (0.0-0.8); Monocytes % (Auto) 13 % (0-12); Neutrophils # (Auto) 21.9 Thou/mm3 (1.8-7.7); Neutrophils % (Auto) 83 % (37-80); Nucleated Red Blood Cell % 0 /100 WBC (0); Platelet Count 161 Thou/mm3 (140-440); RDW Standard Deviation 53.5 fL (36.4-46.3); Red Blood Count 3.07 Miln/mm3 (4.00-5.20)
[2024-02-05 06:33] LABS: White Blood Count 26.4 Thou/mm3 (3.6-11.0)
[2024-02-05 07:08] LABS: Alanine Aminotransferase 15 U/L (10-49); Albumin, Serum 3.2 gm/dL (3.4-4.8); Albumin/Globulin Ratio 1.3 (1.2-2.2); Alkaline Phosphatase 70 U/L (46-116); Anion Gap 10 (7-16); Aspartate Amino Transferase 48 U/L (0-34); BUN/Creatinine Ratio 23 Ratio (12-20); Bilirubin,Total 0.3 mg/dL (0.3-1.2); Blood Urea Nitrogen 23 mg/dL (9-23); Calcium 8.8 mg/dL (8.3-10.6); Calcium (Corrected) 9.4 mg/dL (8.5-10.1); Carbon Dioxide 22.3 mMol/L (20.0-31.0); Chloride 116 mMol/L (98-107); Estimated Creatinine Clearance 42.8 mL/min (>60); Globulin 2.5 gm/dL (2.3-3.5); Glucose 110 mg/dL (74-106); Osmolality,Calculated 298 (275-295); Potassium 3.2 mMol/L (3.4-5.1); Sodium 148 mMol/L (136-145); Total Protein 5.7 gm/dL (5.7-8.2); eGFR 55 See Note
[2024-02-05] MEDS: ASCORBIC ACID 250 MG TABLET 500 MG PO ×2 (09:11→21:17)
[2024-02-05] MEDS: POTASSIUM CHLORIDE 10% 20 MEQ/15 ML UDC 40 MEQ NG (09:11)
[2024-02-05] MEDS: MEMANTINE HCL 5 MG TABLET 10 MG PO (09:12)
[2024-02-05] MEDS: dexAMETHasone 6 MG TABLET PO (09:12)
[2024-02-05] MEDS: amLODIPine BESYLATE 5 MG TABLET PO (09:12)
[2024-02-05] MEDS: LOSARTAN POTASSIUM 25 MG TABLET 50 MG PO (09:12)
[2024-02-05] MEDS: ZINC SULFATE 220 MG CAPSULE PO (09:13)
[2024-02-05] MEDS: PANTOPRAZOLE INJ 40 MG VIAL IVP (09:13)
--- NOTE | 2024-02-05 09:37 | PC.SS ---
Attempted contact with patient's daughter, Ashley Bruner regarding discharge planning. No answer, voicemail provided.
--- NOTE | 2024-02-05 09:58 | PC.SS ---
Initial assessment: Adriana Patel is 88 year old female admitted for distended abdomen. Patient is currently positive for covid-19 on isolation precautions. ATHLETIC SHOE DESIGNER spoke with patient's daughter, Ashley Burris. Role and reason for the contact was explained to Ashley. Ashley confirmed patient's demographic information. Patient was recently discharged to [facility] last week. Patient's spouse, Luis is currently placed at [facility] also, Luis was identified as the alternate medical surrogate decision maker. Ashley indicated patient was previously ambulatory and uses walker rollator and wheelchair. Patient has been unofficially diagnosed with dementia. Patient's recent PCP is Dr. Lambert Hansen. Discharge plan was discussed and would like to return to [facility], pending if isolation bed available. Patient will need gurney transport upon discharge, currently on supplemental oxygen as well. D/c plan: SNF Contact spouse Luis [phone] or daughter, Ashley,
--- NOTE | 2024-02-05 10:25 | PD.SURPROG ---
Documentation for date of: 02/05/24 Subjective Subjective Narrative: Patient is seen and examined. She is resting comfortably, pain is controlled. She denies flatus or bowel movement yet Exam Vital Signs Temp Pulse Resp BP Pulse Ox O2 Del Method O2 Flow Rate 98.5 F 115 H 20 177/103 H 96 Oxy Mask 4 02/05/24 07:58 02/05/24 09:12 02/05/24 08:01 02/05/24 09:12 02/05/24 08:01 02/05/24 04:00 02/05/24 08:01 Constitutional Constitutional: no acute distress Routine Abdominal Exam Comments: Abdomen is soft and mildly distended. There are no bowel sounds at this time. Incision with dressings clean, dry and intact Assessment & Plan Assessment Additional comments: Postop day #2 status post sigmoid colectomy, right colectomy and excision of pelvic mass Plan Clamped NG tube. Continue IV antibiotics. Use incentive spirometer and increase ambulation. PPN has not been started yet despite being ordered yesterday Procedures Procedures Exploratory laparotomy, sigmoid colectomy with low pelvic anastomosis Right colectomy Excision of pelvic mass
--- NOTE | 2024-02-05 10:47 | ESPR_ITS ---
<Statement entered by Alejandro Truong MD - 02/06/24 16:27> Senior Resident Attestation: I supervised/discussed management plan with resident physician Dr. Russell, and was involved in the care of this patient. I personally saw and examined the patient and discussed the assessment and plan with the entire medicine team, including my attending. Patient's care was discussed with attending physician, Dr. Shana Truong MD PGY-3 Documentation for date of: 02/05/24 Subjective Subjective Interval history: Absence of acute overnight events. Patient seen and examined at bedside with daughter next to her. Labs reviewed. Patient did not have any abdominal pain. She continues to endorse shortness of breath. Will give PPN and incentive spirometry per surgical team recommendations. Continue with NPO and IV Zozyn continued. Exam Vital Signs Temp Pulse Resp BP Pulse Ox O2 Del Method O2 Flow Rate 98.5 F 115 H 20 177/103 H 96 Oxy Mask 4 02/05/24 07:58 02/05/24 09:12 02/05/24 08:01 02/05/24 09:12 02/05/24 08:01 02/05/24 04:00 02/05/24 08:01 Narrative Exam Constitutional: well-developed, well-nourished in no acute distress on oxymask. HEENT: NCAT, EOMI, reactive round pupils b/l, moist mucous membranes Lung: CTAB, no wheezing, b/l rales all lung lobes, O2 sat 93% on 4 L oxy mask Heart: Regular S1S2, no murmurs, gallops, or rubs Abdomen: Firm with abdominal Binder. Extremities: No cyanosis, clubbing, or edema, 1+ dorsalis pedis pulses present b/l Neurologic: AOx1, appropriate affect Skin: Warm, dry, no lesions or rashes noted Objective Labs 02/05/24 05:49 02/05/24 05:49 Labs: Laboratory Results - last 24 hr 02/05/24 05:49 WBC 26.4 H RBC 3.07 L Hgb 10.1 L Hct 31.4 L MCV 102 H MCH 32.9 MCHC 32.2 RDW Std Deviation 53.5 H Plt Count 161 Neut % (Auto) 83 H Lymph % (Auto) 2 L [place] % (Auto) 13 H Eos % (Auto) 0 Baso % (Auto) 0 Neut # (Auto) 21.9 H Lymph # (Auto) 0.4 L [place] # (Auto) 3.4 H Eos # (Auto) 0.0 Baso # (Auto) 0.0 Immature Gran # (Auto) 0.70 H Absolute Nucleated RBC 0.00 Immature Gran % 3 H Nucleated RBC % 0 Sodium 148 H Potassium 3.2 L Chloride 116 H Carbon Dioxide 22.3 Anion Gap 10 BUN 23 Creatinine 1.0 Estim Creat Clear Calc 42.8 L eGFR 55 L BUN/Creatinine Ratio 23 H Glucose 110 H Calculated Osmolality 298 H Calcium 8.8 Corrected Calcium 9.4 Total Bilirubin 0.3 AST 48 H ALT 15 Alkaline Phosphatase 70 Total Protein 5.7 Albumin 3.2 L Globulin 2.5 Albumin/Globulin Ratio 1.3 Quality Measures Quality Measures none Advance care planning discussed with:: patient Assessment & Plan Assessment Current Active Medications: Generic Name Dose Route Start Last Admin Trade Name Freq PRN Reason Stop Dose Admin Amlodipine Besylate 5 mg 02/03/24 09:00 02/05/24 09:12 Amlodipine Besylate 5 Mg Tablet PO 03/04/24 08:59 5 mg QDAY SAIRA Administration Ascorbic Acid 500 mg 02/03/24 21:00 02/05/24 09:11 Ascorbic Acid 250 Mg Tablet PO 03/04/24 20:59 500 mg BID SAIRA Administration Atorvastatin Calcium 40 mg 02/03/24 21:00 02/04/24 21:19 Atorvastatin Calcium 20 Mg Tablet PO 03/04/24 20:59 Not Given 2100 SAIRA Dexamethasone 6 mg 02/04/24 10:45 02/05/24 09:12 Dexamethasone 6 Mg Tablet PO 03/05/24 10:44 6 mg QDAY SAIRA Administration Protocol Docusate Sodium 100 mg 02/03/24 21:00 02/05/24 09:14 Docusate Sod 100 Mg Capsule PO 03/04/24 20:59 Not Given BID SAIRA Protocol Donepezil HCl 10 mg 02/03/24 21:00 02/04/24 21:20 Donepezil Hcl 5 Mg Tablet PO 03/04/24 20:59 Not Given QPM SAIRA Gabapentin 400 mg 02/03/24 21:00 02/04/24 21:20 Gabapentin 100 Mg Capsule PO 03/04/24 20:59 Not Given QPM SAIRA Piperacillin/Tazobactam/Dextrose 50 mls @ 12.5 mls/hr 02/03/24 14:00 02/05/24 05:25 Zosyn IV 02/10/24 13:59 12.5 mls/hr Q8HR SAIRA Administration Protocol Magnesium Sulfate 1 gm/ 2,022 mls @ 30 mls/hr 02/05/24 12:00 Potassium Acetate 20 meq/ IV 02/06/24 11:59 Multivitamins/Minerals 10 ml/ .Q24H ONE Amino Acids Labetalol HCl 10 mg 02/03/24 04:44 Labetalol Inj 5 Mg/Ml Vial 20 Ml IVP 03/04/24 04:43 Q4H PRN Hypertension Losartan Potassium 50 mg 02/05/24 09:00 02/05/24 09:12 Losartan Potassium 25 Mg Tablet PO 03/06/24 08:59 50 mg QDAY SAIRA Administration Memantine 10 mg 02/03/24 09:00 02/05/24 09:12 Memantine Hcl 5 Mg Tablet PO 03/04/24 08:59 10 mg QAM SAIRA Administration Morphine Sulfate 2 mg 02/03/24 02:26 02/04/24 14:59 Morphine Sulf Inj 10 Mg/Ml Vial IVP 02/08/24 02:25 2 mg Q4H PRN Administration PAIN SCALE 7-10 (Severe Ondansetron HCl 4 mg 02/03/24 02:20 Ondansetron Inj 2 Mg/Ml Inj 2 Ml IV 03/04/24 02:19 Q6H PRN NAUSEA OR VOMITING Protocol Pantoprazole Sodium 40 mg 02/03/24 09:00 02/05/24 09:13 Pantoprazole Inj 40 Mg Vial IVP 03/04/24 08:59 40 mg QDAY SAIRA Administration Zinc Sulfate 220 mg 02/04/24 09:00 02/05/24 09:13 Zinc Sulfate 220 Mg Capsule PO 03/05/24 08:59 220 mg QDAY SAIRA Administration Plan An 88-year-old female patient with significant medical history for abdominal aortic aneurysm s/p stents, HLD, HTN, GERD, asthma and dementia presented to the ED of [facility] on 02/01 for distended abdomen. Patient was recently admitted to [facility] on 01/26/2024 and discharged on 02/01/2024 for septic pneumonia and RUDDY. In ED, BP 165/92, pulse 123, respiratory rate 26 and temperature 100.4 F, leukocytosis 15.7, creatinine 1.6 (baseline 1.1), lactic acid 1.1, BNP 322 and procalcitonin of 0.64. Abdomen/pelvis CT showed massive pneumoperitoneum, hyperdensity in the stomach with marked mucosal thickening, gastritis pattern with possible gastrointestinal bleeding, multiple air densities in the wall of the stomach suspicious for gastric perforation causing the pneumoperitoneum, gallbladder wall thickening. Patient was admitted for pneumoperitoneum management, requiring exploratory laparotomy consisting of sigmoid colectomy with low pelvic anastomosis, right colectomy, and excision of pelvic mass. PPN started on 02/05/2024. #Sepsis, resolving Secondary to #Pneumoperitoneum #s/p sigmoid colectomy with low pelvic anastomosis on02/03/24, POD 2 #s/p right colectomy and excision of pelvic mass on 02/03/24, POD 2 #Leukocytosis Patient was found to have distended abdomen upon recent EGD and colonoscopy done in the hospital. She met 4 out of 4 SIRS criteria for sepsis:pulse 123, respiratory rate 26 and temperature 100.4 F,elevated WBC. Patient appeared to have hypoactive bowel sounds. Abdomen pelvis imaging indicative of pneumoperitoneum, requiring surgery. On 02/03/2024: exploratory laparotomy completed with sigmoid colectomy with low pelvic anastomosis, right colectomy, and excision of pelvic mass. 50cc of blood loss. WBC increased from 16.2 to 28.9 decreased to 26.4. Plan: ?General Surgeon Dr. Ayala consulted; recommended exploratory laparotomy- completed; Peripheral parenteral nutrition clamped NG tube. Continue IV antibiotics. Use incentive spirometer and increase ambulation. ?GI Dr. Hsu consulted, recommended NG tube and continue IV antibiotics ?Dexamethasone 6 mg orally once daily ?Discontinued IV Vanco pharmacy to dose(02/02-02/04/24) ? Zosyn IV 3.375 gm every 8 hours (02/03/24- - incentive spirometry ? PPN given with goal rate of total fluids 75 cc per hour - diving fisher on board ? Follow-up CBC and CMP #Hospital acquired pneumonia #COVID pneumonia Patient endorsed new onset productive cough x 2 days and was febrile, tachycardic, and tachypneic on presentation. Patient's tachycardia is improving. Rales appreciated on b/l lung lobes all. Patient seen with O2 sat 93% on 4 L oxy mask. [facility], exposing her to increased infection and sick contacts. Patient recently admitted for septic pneumonia, discharged on p.o. Augmentin. Patient failed oral antibiotics as she now resulted COVID +. Procalcitonin 0.64. COVID +. Blood cultures neg x2 prelim. Plan: ? Antibiotics for pneumoperitoneum provides coverage for pneumonia ? DuoNebs as needed ? Tylenol suppository as needed for fever > 100.4 F ? Follow-up CBC #Macrocytic anemia Differential diagnosis: Folate deficiency anemia versus B12 deficiency anemia Patient recently had surgical intervention which likely resulted in an imbalance of vitamin levels. ?Follow-up CBC ?Will closely monitor. #History of dementia Patient takes donepezil and memantine. ?donepezil and memantine #History of AAA status post stents The patient has a history of AAA s/p stents. Patient is on reports that she follows Dr. Pro. Frequent appointments, every 6 months with bindery library technical assistant. Plan: ? Follow-up outpatient #Incidental finding of liver and splenic lesions CT abdomen and pelvis showed some lesions. 01/30/2024- MRI abdomen with liver protocol done showed multiple liver lesions as well as spleen and renal consistent with simple cysts -follow-up with ultrasound in 6 months per recommendations #RUDDY, most likely prerenal, resolved Health Maintenance Dispo: Patient admitted for pneumoperitoneum, general surgeon consulted, s/p exploratory laparotomy with R. colectomy on PPN. Diet: PPN DVT/PPx: SCD GI ppx: Protonix Lines: Thorpe catheter Code Status: Full code Discussed case with my attending Dr. Tom and senior Alejandro Truong, PGY-3. Thank you, Courtney Russell, PGY-2 Attending Provider Attestation/Addendum I reviewed labs, imaging, EKG, home medications and prior available records. Face to face evaluation was performed by me. I have personally examined the patient and discussed assessment and plan with the IM team. I reviewed the resident note and agree with the plan with exceptions as below. Pneumoperitoneum: Status post right colectomy. Surgery is following: Discussed with surgery: Started TPN. Strict n.p.o. for now. Continue incentive spirometry. Hypokalemia: Replete potassium and follow-up BMP Leukocytosis: Getting worse likely reactive postop. Continue IV Zosyn. Trend WBC.
[2024-02-05] MEDS: MULTIVITAMIN IV (12:17)
[2024-02-05] MEDS: [UNRECOGNIZED DRUG - OTHER] IV (12:17)
[2024-02-05] MEDS: POTASSIUM ACET IV (12:17)
[2024-02-05] MEDS: MAGNESIUM SULF IV (12:17)
[2024-02-05] MEDS: LABETALOL INJ 5 MG/ML VIAL 20 ML 10 MG IVP (12:30)
[2024-02-05] MEDS: SODIUM CHLORIDE 0.9% 1000 ML 1,000 ML 45 ML IV (18:04)
[2024-02-05] MEDS: ATORVASTATIN CALCIUM 20 MG TABLET 40 MG PO (21:16)
[2024-02-05] MEDS: DONEPEZIL HCL 5 MG TABLET 10 MG PO (21:16)
[2024-02-05] MEDS: DOCUSATE SOD 100 MG CAPSULE PO (21:16)
[2024-02-05] MEDS: GABAPENTIN 100 MG CAPSULE 400 MG PO (21:16)
[2024-02-05] MEDS: INSULIN HUM REGULAR 1 UNIT/0.01 ML (PER UNIT) SC (23:52)
[2024-02-06] VITALS (12 sets, daily range): BP systolic 115–156; BP diastolic 70–103; PULSE 71–103; RESP 12–97; TEMP 36.1–37.1; O2SAT 94–97
[2024-02-06] MEDS: PIPER/TAZO 3.375 GM 50 ML IV ×3 (05:49→21:02)
[2024-02-06] MEDS: INSULIN HUM REGULAR 1 UNIT/0.01 ML (PER UNIT) SC ×3 (05:49→23:54)
[2024-02-06 05:55] LABS: Basophils % (Auto) 0 % (0-2.5); Eosinophils % (Auto) 0 % (0-10); Hematocrit 26.7 % (36.0-46.0); Hemoglobin 8.4 g/dL (12.0-16.0); Immature Granulocytes % (Auto) 3 % (0-0); Immature Granulocytes Auto 0.52 Thou/mm3 (0.00-0.00); Lymphocytes # (Auto) 0.3 Thou/mm3 (1.0-4.8); Lymphocytes % (Auto) 2 % (10-50); Mean Corpuscular HGB Conc 31.5 g/dl (31.0-37.0); Mean Corpuscular Hemoglobin 32.2 pg (25.0-35.0); Mean Corpuscular Volume 102 fL (80-100); Monocytes # (Auto) 1.1 Thou/mm3 (0.0-0.8); Monocytes % (Auto) 7 % (0-12); Neutrophils % (Auto) 89 % (37-80); Nucleated Red Blood Cell % 0 /100 WBC (0); Platelet Count 170 Thou/mm3 (140-440); Red Blood Count 2.61 Miln/mm3 (4.00-5.20); White Blood Count 16.9 Thou/mm3 (3.6-11.0)
[2024-02-06 06:22] LABS: Alanine Aminotransferase 17 U/L (10-49); Albumin, Serum 3.1 gm/dL (3.4-4.8); Albumin/Globulin Ratio 1.3 (1.2-2.2); Alkaline Phosphatase 62 U/L (46-116); Anion Gap 6 (7-16); Aspartate Amino Transferase 35 U/L (0-34); BUN/Creatinine Ratio 33 Ratio (12-20); Bilirubin,Total 0.3 mg/dL (0.3-1.2); Blood Urea Nitrogen 30 mg/dL (9-23); Calcium 8.9 mg/dL (8.3-10.6); Calcium (Corrected) 9.6 mg/dL (8.5-10.1); Carbon Dioxide 23.8 mMol/L (20.0-31.0); Chloride 115 mMol/L (98-107); Creatinine (Component) 0.9 mg/dL (0.6-1.3); Globulin 2.4 gm/dL (2.3-3.5); Glucose 158 mg/dL (74-106); Magnesium 1.8 mg/dL (1.6-2.6); Osmolality,Calculated 297 (275-295); Phosphorous 1.7 mg/dL (2.4-5.1); Potassium 3.4 mMol/L (3.4-5.1); Sodium 145 mMol/L (136-145); Total Protein 5.5 gm/dL (5.7-8.2); eGFR > 60 See Note
[2024-02-06] MEDS: PANTOPRAZOLE INJ 40 MG VIAL IVP (08:30)
[2024-02-06] MEDS: ZINC SULFATE 220 MG CAPSULE PO (08:30)
[2024-02-06] MEDS: ASCORBIC ACID 250 MG TABLET 500 MG PO ×2 (08:30→21:02)
[2024-02-06] MEDS: LOSARTAN POTASSIUM 25 MG TABLET 100 MG PO (08:30)
[2024-02-06] MEDS: POT PHOS 15 mMol in NS 250 ML 15 MMOL/250 ML BAG 62.5 MMOL IV (08:30)
[2024-02-06] MEDS: amLODIPine BESYLATE 5 MG TABLET PO (08:31)
[2024-02-06] MEDS: MEMANTINE HCL 5 MG TABLET 10 MG PO (08:31)
[2024-02-06] MEDS: dexAMETHasone 6 MG TABLET PO (08:32)
--- NOTE | 2024-02-06 09:35 | ESPR_ITS ---
<Statement entered by Alejandro Truong MD - 02/06/24 16:30> Senior Resident Attestation: I supervised/discussed management plan with resident physician Dr. Russell, and was involved in the care of this patient. I personally saw and examined the patient and discussed the assessment and plan with the entire medicine team, including my attending. Patient's care was discussed with attending physician, Dr. Shana Truong MD PGY-3 Documentation for date of: 02/06/24 Subjective Subjective Interval history: Patient seen and observed at bedside. No acute overnight events. She endorses dry cough today. Patient denies headache, fever, chills, chest pain, palpitation, dizziness, nausea, vomiting. Rales still noted on all lung lobes bilaterally. No edema noted in lower extremities. Will continue PPN and remove NG per surgeon. Surgeon recommends to ambulate patient and may remove wang catheter. Exam Vital Signs Temp Pulse Resp BP Pulse Ox O2 Del Method O2 Flow Rate 97.6 F 71 18 152/79 H 94 L Nasal Cannula 2 02/06/24 08:00 02/06/24 08:31 02/06/24 08:11 02/06/24 08:31 02/06/24 08:00 02/06/24 08:00 02/06/24 08:11 Narrative Exam Constitutional: well-developed, well-nourished in no acute distress on oxymask. HEENT: NCAT, EOMI, reactive round pupils b/l, moist mucous membranes Lung: CTAB, no wheezing, b/l rales all lung lobes, O2 sat 94% on 2 L oxy mask Heart: Regular S1S2, no murmurs, gallops, or rubs Abdomen: Non-tender, non-distended with abdominal Binder. Extremities: No cyanosis, clubbing, or edema, 1+ dorsalis pedis pulses present b/l Neurologic: AOx1, appropriate affect Skin: Warm, dry, no lesions or rashes noted Objective Labs 02/07/24 07:56 02/07/24 07:56 Labs: Laboratory Results - last 24 hr 02/06/24 05:21 WBC 16.9 H D RBC 2.61 L Hgb 8.4 L Hct 26.7 L MCV 102 H MCH 32.2 MCHC 31.5 RDW Std Deviation 53.0 H Plt Count 170 Neut % (Auto) 89 H Lymph % (Auto) 2 L [place] % (Auto) 7 Eos % (Auto) 0 Baso % (Auto) 0 Neut # (Auto) 15.0 H Lymph # (Auto) 0.3 L [place] # (Auto) 1.1 H Eos # (Auto) 0.0 Baso # (Auto) 0.0 Immature Gran # (Auto) 0.52 H Absolute Nucleated RBC 0.00 Immature Gran % 3 H Nucleated RBC % 0 Sodium 145 Potassium 3.4 Chloride 115 H Carbon Dioxide 23.8 Anion Gap 6 L BUN 30 H Creatinine 0.9 Estim Creat Clear Calc 47.0 L eGFR > 60 BUN/Creatinine Ratio 33 H Glucose 158 H Calculated Osmolality 297 H Calcium 8.9 Corrected Calcium 9.6 Phosphorus 1.7 L Magnesium 1.8 Total Bilirubin 0.3 AST 35 H ALT 17 Alkaline Phosphatase 62 Total Protein 5.5 L Albumin 3.1 L Globulin 2.4 Albumin/Globulin Ratio 1.3 Quality Measures Quality Measures none Advance care planning discussed with:: patient Assessment & Plan Assessment Current Active Medications: Generic Name Dose Route Start Last Admin Trade Name Freq PRN Reason Stop Dose Admin Amlodipine Besylate 5 mg 02/03/24 09:00 02/06/24 08:31 Amlodipine Besylate 5 Mg Tablet PO 03/04/24 08:59 5 mg QDAY SAIRA Administration Ascorbic Acid 500 mg 02/03/24 21:00 02/06/24 08:30 Ascorbic Acid 250 Mg Tablet PO 03/04/24 20:59 500 mg BID SAIRA Administration Atorvastatin Calcium 40 mg 02/03/24 21:00 02/05/24 21:16 Atorvastatin Calcium 20 Mg Tablet PO 03/04/24 20:59 40 mg 2100 SAIRA Administration Dexamethasone 6 mg 02/04/24 10:45 02/06/24 08:32 Dexamethasone 6 Mg Tablet PO 03/05/24 10:44 6 mg QDAY SAIRA Administration Protocol Dextrose 25 ml 02/05/24 13:17 Dextrose 50%-Water Inj 50 Ml Syringe IV 03/06/24 13:16 Q15MIN PRN BG 50-70 responsive npo pt Dextrose 50 ml 02/05/24 13:17 Dextrose 50%-Water Inj 50 Ml Syringe IV 03/06/24 13:16 Q15MIN PRN BG <50 OR BG <70 & pt unresponsive Docusate Sodium 100 mg 02/03/24 21:00 02/06/24 08:32 Docusate Sod 100 Mg Capsule PO 03/04/24 20:59 Not Given BID SAIRA Protocol Donepezil HCl 10 mg 02/03/24 21:00 02/05/24 21:16 Donepezil Hcl 5 Mg Tablet PO 03/04/24 20:59 10 mg QPM SAIRA Administration Gabapentin 400 mg 02/03/24 21:00 02/05/24 21:16 Gabapentin 100 Mg Capsule PO 03/04/24 20:59 400 mg QPM SAIRA Administration Glucagon 1 mg 02/05/24 13:17 Glucagon Inj 1 Mg Vial IM Q15MIN PRN BG <70, and no IV access Piperacillin/Tazobactam/Dextrose 50 mls @ 12.5 mls/hr 02/03/24 14:00 02/06/24 05:49 Zosyn IV 02/10/24 13:59 12.5 mls/hr Q8HR SAIRA Administration Protocol Magnesium Sulfate 1 gm/ 2,022 mls @ 30 mls/hr 02/05/24 12:00 02/06/24 03:28 Potassium Acetate 20 meq/ IV 02/06/24 11:59 90 mls/hr Multivitamins/Minerals 10 ml/ .Q24H ONE Infusion Amino Acids Fat Emulsion-[place] Oil/Soybean Oil 500 mls @ 31.25 mls/hr 02/08/24 09:00 Clinopid 20% Iv IV 03/09/24 08:59 MoFr [facility] Potassium Phosphate 15 mmol in 250 mls @ 62.5 mls/hr 02/06/24 07:22 02/06/24 08:30 Pot Phos 15 Mmol In Ns 250 Ml IV 02/06/24 11:21 62.5 mls/hr X1 ONE Administration Magnesium Sulfate 2 gm/ 2,019 mls @ 90 mls/hr 02/06/24 12:00 Potassium Phosphate 15 mmol/ IV 02/07/24 10:25 Multivitamins/Minerals 10 ml/ .[id number] ONE Amino Acids Insulin Human Regular 0 unit 02/05/24 18:00 02/06/24 05:49 Insulin Hum Regular 1 Unit/0.01 Ml (Per Unit) SC 03/06/24 17:59 2 unit Q6HR SAIRA Administration Protocol Labetalol HCl 10 mg 02/03/24 04:44 11/19/24 12:30 Labetalol Inj 5 Mg/Ml Vial 20 Ml IVP 03/04/24 04:43 10 mg Q4H PRN Administration Hypertension Losartan Potassium 100 mg 02/06/24 09:00 02/06/24 08:30 Losartan Potassium 25 Mg Tablet PO 03/07/24 08:59 100 mg QDAY SAIRA Administration Memantine 10 mg 02/03/24 09:00 02/06/24 08:31 Memantine Hcl 5 Mg Tablet PO 03/04/24 08:59 10 mg QAM SAIRA Administration Morphine Sulfate 2 mg 02/03/24 02:26 02/04/24 14:59 Morphine Sulf Inj 10 Mg/Ml Vial IVP 02/08/24 02:25 2 mg Q4H PRN Administration PAIN SCALE 7-10 (Severe Ondansetron HCl 4 mg 02/03/24 02:20 Ondansetron Inj 2 Mg/Ml Inj 2 Ml IV 03/04/24 02:19 Q6H PRN NAUSEA OR VOMITING Protocol Pantoprazole Sodium 40 mg 02/03/24 09:00 02/05/24 09:13 Pantoprazole Inj 40 Mg Vial IVP 03/04/24 08:59 40 mg QDAY SAIRA Administration Zinc Sulfate 220 mg 02/04/24 09:00 02/06/24 08:30 Zinc Sulfate 220 Mg Capsule PO 03/05/24 08:59 220 mg QDAY SAIRA Administration Plan An 88-year-old female patient with significant medical history for abdominal aortic aneurysm s/p stents, HLD, HTN, GERD, asthma and dementia presented to the ED of [facility] on 02/01 for distended abdomen. Patient was recently admitted to [facility] on 01/26/2024 and discharged on 02/01/2024 for septic pneumonia and RUDDY. In ED, BP 165/92, pulse 123, respiratory rate 26 and temperature 100.4 F, leukocytosis 15.7, creatinine 1.6 (baseline 1.1), lactic acid 1.1, BNP 322 and procalcitonin of 0.64. Abdomen/pelvis CT showed massive pneumoperitoneum, hyperdensity in the stomach with marked mucosal thickening, gastritis pattern with possible gastrointestinal bleeding, multiple air densities in the wall of the stomach suspicious for gastric perforation causing the pneumoperitoneum, gallbladder wall thickening. Patient was admitted for pneumoperitoneum management, requiring exploratory laparotomy consisting of sigmoid colectomy with low pelvic anastomosis, right colectomy, and excision of pelvic mass. Currently on PPN. #Sepsis, stable Secondary to #Pneumoperitoneum #s/p sigmoid colectomy with low pelvic anastomosis on02/03/24, POD 3 #s/p right colectomy and excision of pelvic mass on 02/03/24, POD 3 #Leukocytosis Patient was found to have distended abdomen after recent EGD and colonoscopy done in the hospital. Patient was found to have pneumoperitoneum. Abdomen pelvis imaging indicative of pneumoperitoneum, requiring surgery. On 02/03/2024: exploratory laparotomy completed with sigmoid colectomy with low pelvic anastomosis, right colectomy, and excision of pelvic mass. 50cc of blood loss. Patient is hemodynamically stable and tolerating PPN well. She has not had any bowel movements x 3 days while NPO and on PPN. WBC is downtrending to 16.9. Plan: -General Surgeon Dr. Ayala consulted; recommended exploratory laparotomy- completed; Peripheral parenteral nutrition, Continue IV antibiotics. Use incentive spirometer and increase ambulation, remove NG, ambulation and may d/c Wang. -GI Dr. Hsu consulted, recommended NG tube and continue IV antibiotics - incentive spirometry ? PPN given with goal rate of total fluids 75 cc per hour - food and nutrition professor on board - Consider wang d/c and ambulate - physical therapy ? Zosyn IV 3.375 gm every 8 hours (02/03/24- - IV Vanco pharmacy to dose(02/02-02/04/24) ? Follow-up CBC and CMP #Hospital acquired pneumonia #COVID pneumonia Patient endorsed new onset productive cough x 2 days and was febrile, tachycardic, and tachypneic on presentation. Patient's tachycardia resolved. Rales appreciated on b/l lung lobes. Patient seen with O2 sat 94% on oxy mask. She was recently admitted for septic pneumonia, discharged on p.o. Augmentin. Patient failed oral antibiotics as she now resulted COVID +. Procalcitonin 0.64. COVID +. Blood cultures neg x2 prelim. Plan: ? Antibiotics for pneumoperitoneum provides coverage for pneumonia ? DuoNebs as needed ? Tylenol suppository as needed for fever > 100.4 F ? Follow-up CBC #Macrocytic anemia Differential diagnosis: Folate deficiency anemia versus B12 deficiency anemia Patient recently had surgical intervention which likely resulted in an imbalance of vitamin levels. ?Follow-up CBC ?Will closely monitor. #History of dementia Patient takes donepezil and memantine. ?Continue donepezil and memantine #History of AAA status post stents (following Dr. Pro) #Incidental finding of liver and splenic lesions, on CT a/p ?Follow-up outpatient #RUDDY, most likely prerenal, resolved Health Maintenance Dispo: Patient admitted for pneumoperitoneum, general surgeon consulted, s/p exploratory laparotomy with R. colectomy on PPN. Diet: PPN DVT/PPx: SCD GI ppx: Protonix Lines: Wang catheter Code Status: Full code Discussed case with my attending Dr.: Shana and senior Alejandro Truong, PGY-3. Thank you, Courtney Russell, PGY-2 Attending Provider Attestation/Addendum I, Leonor Saldana, DO, attest that I was physically present for the hernandez portions of the service and evaluated the patient with the resident and I reviewed and discussed the case with the resident and agree with the resident's findings and plans of care as documented above Patient seen and evaluated this AM. She remains on 4L oxymask. Patient denies any chest pain or shortness of breath currently. She denies any abdominal pain. Will DC steroids at this time as patient appears improved and promote wound healing. Leukocytosis likely 2/2 steroids as well. Patient otherwise afebrile. She remains on PPN. Appreciate gen/surg recommendations. Monitor fluid status closely.
--- NOTE | 2024-02-06 12:07 | PC.NURSE ---
PATIENT INFORMED OF PLAN FOR TODAY TO GET OUT OF BED INTO A CHAIR FOR AT LEAST 30MINS. ALLOWED TO CHOOSE WHEN. AND STATED LATER THIS AFTERNOON.
[2024-02-06] MEDS: MAGNESIUM SULF IV (12:25)
[2024-02-06] MEDS: MULTIVITAMIN IV (12:25)
[2024-02-06] MEDS: MORPHINE SULF INJ 10 MG/ML VIAL 2 MG IVP (12:25)
[2024-02-06] MEDS: [UNRECOGNIZED DRUG - OTHER] IV (12:25)
[2024-02-06] MEDS: POTASSIUM PHOS IV (12:25)
--- NOTE | 2024-02-06 12:38 | PC.NURSE ---
1215 PATIENT ASKED IF IN PAIN AND RESPONDED, NO. HR AND B/P ARE ELEVATED. PATIENT INFORMED WILL MEDICATE FOR PAIN EVEN THOUGH SHE SAYS SHE IS FINE DUE TO THE FACT TAHT HER HR AND B/P ARE ELEVATED. PATIENT APPROVED.
--- NOTE | 2024-02-06 12:55 | PD.SURPROG ---
Documentation for date of: 02/06/24 Subjective Subjective Narrative: Patient is seen and examined. She is resting comfortably, pain is controlled. She denies nausea or vomiting, her NG tube has been clamped since yesterday. She has not passed flatus or bowel movement yet Exam Vital Signs Temp Pulse Resp BP Pulse Ox O2 Del Method O2 Flow Rate 98.3 F 103 H 12 156/86 H 97 Nasal Cannula 2 02/06/24 11:59 02/06/24 12:00 02/06/24 11:59 02/06/24 11:59 02/06/24 11:59 02/06/24 11:59 02/06/24 11:59 Constitutional Constitutional: no acute distress Routine Abdominal Exam Abdominal: Present soft Comments: Abdomen is soft and mildly distended. She has hypoactive bowel sounds. Incision is clean, dry and intact Assessment & Plan Assessment Additional comments: Postop day #3 status post sigmoid colectomy, right colectomy and excision of pelvic mass Plan DC NG tube. Keep n.p.o. and continue PPN. May DC Thorpe catheter and increase ambulation Procedures Procedures Exploratory laparotomy, sigmoid colectomy with low pelvic anastomosis Right colectomy Excision of pelvic mass
--- NOTE | 2024-02-06 14:30 | PC.SS ---
Rounding note: continue IV abx. Pending recommendations.
--- NOTE | 2024-02-06 19:23 | PC.NURSE ---
UNABLE TO GET PATIENT UP PLANNED. F/C REMOVED ORDERED AND PATIENT INFORMED THAT BEDPAN MAY BE USED AT NIGHT. GOAL FOR TOMORROW IS TO USE A BEDSIDE COMMODE. PASSIVE RANGE OF MOTION DOEN TO LOWER EXTREMITIES.
[2024-02-06] MEDS: ATORVASTATIN CALCIUM 20 MG TABLET 40 MG PO (21:01)
[2024-02-06] MEDS: GABAPENTIN 100 MG CAPSULE 400 MG PO (21:02)
[2024-02-06] MEDS: DONEPEZIL HCL 5 MG TABLET 10 MG PO (21:02)
[2024-02-06] MEDS: DOCUSATE SOD 100 MG CAPSULE PO (21:02)
[2024-02-07] VITALS (9 sets, daily range): BP systolic 134–164; BP diastolic 69–94; PULSE 68–108; RESP 16–22; TEMP 36–37; O2SAT 92–98; BMI 12.0
[2024-02-07] MEDS: PIPER/TAZO 3.375 GM 50 ML IV ×3 (05:20→23:14)
[2024-02-07 08:13] LABS: Basophils % (Auto) 0 % (0-2.5); Eosinophils % (Auto) 0 % (0-10); Hematocrit 31.9 % (36.0-46.0); Hemoglobin 10.1 g/dL (12.0-16.0); Immature Granulocytes % (Auto) 5 % (0-0); Immature Granulocytes Auto 0.91 Thou/mm3 (0.00-0.00); Lymphocytes # (Auto) 0.6 Thou/mm3 (1.0-4.8); Lymphocytes % (Auto) 4 % (10-50); Mean Corpuscular HGB Conc 31.7 g/dl (31.0-37.0); Mean Corpuscular Hemoglobin 32.1 pg (25.0-35.0); Mean Corpuscular Volume 101 fL (80-100); Monocytes # (Auto) 1.4 Thou/mm3 (0.0-0.8); Monocytes % (Auto) 8 % (0-12); Neutrophils # (Auto) 14.7 Thou/mm3 (1.8-7.7); Neutrophils % (Auto) 83 % (37-80); Nucleated Red Blood Cell % 0 /100 WBC (0); Platelet Count 212 Thou/mm3 (140-440); RDW Standard Deviation 52.1 fL (36.4-46.3); Red Blood Count 3.15 Miln/mm3 (4.00-5.20); White Blood Count 17.7 Thou/mm3 (3.6-11.0)
[2024-02-07 08:31] LABS: Alanine Aminotransferase 17 U/L (10-49); Albumin, Serum 3.6 gm/dL (3.4-4.8); Albumin/Globulin Ratio 1.3 (1.2-2.2); Alkaline Phosphatase 66 U/L (46-116); Anion Gap 7 (7-16); Aspartate Amino Transferase 26 U/L (0-34); BUN/Creatinine Ratio 44 Ratio (12-20); Bilirubin,Total 0.4 mg/dL (0.3-1.2); Blood Urea Nitrogen 35 mg/dL (9-23); Calcium 9.2 mg/dL (8.3-10.6); Calcium (Corrected) 9.5 mg/dL (8.5-10.1); Carbon Dioxide 26.5 mMol/L (20.0-31.0); Chloride 110 mMol/L (98-107); Creatinine (Component) 0.8 mg/dL (0.6-1.3); Estimated Creatinine Clearance 84.8 mL/min (>60); Globulin 2.7 gm/dL (2.3-3.5); Glucose 128 mg/dL (74-106); Magnesium 1.9 mg/dL (1.6-2.6); Osmolality,Calculated 294 (275-295); Phosphorous 1.9 mg/dL (2.4-5.1); Potassium 3.2 mMol/L (3.4-5.1); Sodium 143 mMol/L (136-145); Total Protein 6.3 gm/dL (5.7-8.2); eGFR > 60 See Note
[2024-02-07] MEDS: ASCORBIC ACID 250 MG TABLET 500 MG PO (08:51)
[2024-02-07] MEDS: PANTOPRAZOLE INJ 40 MG VIAL IVP (08:51)
[2024-02-07] MEDS: amLODIPine BESYLATE 5 MG TABLET PO (08:51)
[2024-02-07] MEDS: MEMANTINE HCL 5 MG TABLET 10 MG PO (08:52)
[2024-02-07] MEDS: LOSARTAN POTASSIUM 25 MG TABLET 100 MG PO (08:52)
[2024-02-07] MEDS: DOCUSATE SOD 100 MG CAPSULE PO (08:52)
[2024-02-07] MEDS: ZINC SULFATE 220 MG CAPSULE PO (08:52)
--- NOTE | 2024-02-07 09:15 | PC.SS ---
Update: Patient receiving IV antibiotics. GI/Surgery consulting on case.
--- NOTE | 2024-02-07 09:41 | ESPR_ITS ---
<Statement entered by Dick Jones DO - 02/07/24 19:09> Senior attestation: Patient was examined and case was reviewed with team including attending physician. Note reviewed, I agree with most of its contents and agree with the patient's care. Patient remains on PPN today, followed up with general surgeon Dr. Ayala who advises continue NPO for now with ice chips prn, also advised ambulation at tolerated. Physical therapy following, advised SNF upon discharge. Dick Jones DO PGY-3 Documentation for date of: 02/07/24 Subjective Subjective Interval history: Patient seen and observed at bedside. No acute overnight events. She endorses phlegm but denies any cough. Wheezing upper lung lobes bilaterally, and rales on lower lung lobes?improving. Will continue PPN, n.p.o. and ice chips as needed per surgery recommendations. Surgeon recommends to ambulate patient. Patient worked with physical therapy today. Patient sat in chair but appeared weak to PT. PT recommends SNF outpatient setting upon discharge. Exam Vital Signs Temp Pulse Resp BP Pulse Ox O2 Del Method O2 Flow Rate 97.8 F 74 19 153/81 H 92 L Oxy Mask 3 02/07/24 08:00 02/07/24 08:52 02/07/24 08:00 02/07/24 08:52 02/07/24 08:00 02/07/24 08:00 02/07/24 08:00 Narrative Exam Constitutional: well-developed, well-nourished in no acute distress on oxymask. HEENT: NCAT, EOMI, reactive round pupils b/l, moist mucous membranes Lung: CTAB, no wheezing, b/l rales all lung lobes, O2 sat 95% on 4 L oxy mask Heart: Regular S1S2, no murmurs, gallops, or rubs Abdomen: Non-tender, non-distended with surgical kamar at midline and abdominal Binder. Extremities: No cyanosis, clubbing, or edema, 1+ dorsalis pedis pulses present b/l Neurologic: AOx2, appropriate affect Skin: Warm, dry, no lesions or rashes noted Objective Labs 02/08/24 04:51 02/08/24 04:51 Labs: Laboratory Results - last 24 hr 02/07/24 07:56 WBC 17.7 H RBC 3.15 L Hgb 10.1 L D Hct 31.9 L MCV 101 H MCH 32.1 MCHC 31.7 RDW Std Deviation 52.1 H Plt Count 212 D Neut % (Auto) 83 H Lymph % (Auto) 4 L [place] % (Auto) 8 Eos % (Auto) 0 Baso % (Auto) 0 Neut # (Auto) 14.7 H Lymph # (Auto) 0.6 L [place] # (Auto) 1.4 H Eos # (Auto) 0.0 Baso # (Auto) 0.0 Immature Gran # (Auto) 0.91 H Absolute Nucleated RBC 0.00 Immature Gran % 5 H Nucleated RBC % 0 Sodium 143 Potassium 3.2 L Chloride 110 H Carbon Dioxide 26.5 Anion Gap 7 BUN 35 H Creatinine 0.8 Estim Creat Clear Calc 84.8 eGFR > 60 BUN/Creatinine Ratio 44 H Glucose 128 H Calculated Osmolality 294 Calcium 9.2 Corrected Calcium 9.5 Phosphorus 1.9 L Magnesium 1.9 Total Bilirubin 0.4 AST 26 ALT 17 Alkaline Phosphatase 66 Total Protein 6.3 Albumin 3.6 D Globulin 2.7 Albumin/Globulin Ratio 1.3 Quality Measures Quality Measures none Advance care planning discussed with:: patient Assessment & Plan Assessment Current Active Medications: Generic Name Dose Route Start Last Admin Trade Name Freq PRN Reason Stop Dose Admin Amlodipine Besylate 5 mg 02/03/24 09:00 02/07/24 08:51 Amlodipine Besylate 5 Mg Tablet PO 03/04/24 08:59 5 mg QDAY SAIRA Administration Ascorbic Acid 500 mg 02/03/24 21:00 02/07/24 08:51 Ascorbic Acid 250 Mg Tablet PO 03/04/24 20:59 500 mg BID SAIRA Administration Atorvastatin Calcium 40 mg 02/03/24 21:00 02/06/24 21:01 Atorvastatin Calcium 20 Mg Tablet PO 03/04/24 20:59 40 mg 2100 SAIRA Administration Dextrose 25 ml 02/05/24 13:17 Dextrose 50%-Water Inj 50 Ml Syringe IV 03/06/24 13:16 Q15MIN PRN BG 50-70 responsive npo pt Dextrose 50 ml 02/05/24 13:17 Dextrose 50%-Water Inj 50 Ml Syringe IV 03/06/24 13:16 Q15MIN PRN BG <50 OR BG <70 & pt unresponsive Docusate Sodium 100 mg 02/03/24 21:00 02/07/24 08:52 Docusate Sod 100 Mg Capsule PO 03/04/24 20:59 100 mg BID SAIRA Administration Protocol Donepezil HCl 10 mg 02/03/24 21:00 02/06/24 21:02 Donepezil Hcl 5 Mg Tablet PO 03/04/24 20:59 10 mg QPM SAIRA Administration Gabapentin 400 mg 02/03/24 21:00 02/06/24 21:02 Gabapentin 100 Mg Capsule PO 03/04/24 20:59 400 mg QPM SAIRA Administration Glucagon 1 mg 02/05/24 13:17 Glucagon Inj 1 Mg Vial IM Q15MIN PRN BG <70, and no IV access Piperacillin/Tazobactam/Dextrose 50 mls @ 12.5 mls/hr 02/03/24 14:00 02/07/24 05:20 Zosyn IV 02/10/24 13:59 100 mls/hr Q8HR SAIRA Administration Protocol Fat Emulsion-[place] Oil/Soybean Oil 500 mls @ 31.25 mls/hr 02/08/24 18:00 Clinopid 20% Iv IV 03/09/24 17:59 [id number] [facility] Magnesium Sulfate 2 gm/ 2,019 mls @ 90 mls/hr 02/06/24 12:00 02/06/24 12:25 Potassium Phosphate 15 mmol/ IV 02/07/24 10:25 90 mls/hr Multivitamins/Minerals 10 ml/ .[id number] ONE Administration Amino Acids Magnesium Sulfate 2 gm/ 2,034 mls @ 90 mls/hr 02/07/24 10:26 Potassium Phosphate 30 mmol/ IV 02/08/24 09:01 Multivitamins/Minerals 10 ml/ .[id number] ONE Potassium Acetate 20 meq/ Amino Acids Amino Acids 1,000 mls @ 90 mls/hr 02/08/24 09:02 Clinimix 4.25/5 IV 02/08/24 20:08 .[id number] ONE Insulin Human Regular 0 unit 02/05/24 18:00 02/07/24 05:05 Insulin Hum Regular 1 Unit/0.01 Ml (Per Unit) SC 03/06/24 17:59 Not Given Q6HR [facility] Protocol Labetalol HCl 10 mg 02/03/24 04:44 02/05/24 12:30 Labetalol Inj 5 Mg/Ml Vial 20 Ml IVP 03/04/24 04:43 10 mg Q4H PRN Administration Hypertension Losartan Potassium 100 mg 02/06/24 09:00 02/07/24 08:52 Losartan Potassium 25 Mg Tablet PO 03/07/24 08:59 100 mg QDAY SAIRA Administration Memantine 10 mg 02/03/24 09:00 02/07/24 08:52 Memantine Hcl 5 Mg Tablet PO 03/04/24 08:59 10 mg QAM SAIRA Administration Morphine Sulfate 2 mg 02/03/24 02:26 02/06/24 12:25 Morphine Sulf Inj 10 Mg/Ml Vial IVP 02/08/24 02:25 2 mg Q4H PRN Administration PAIN SCALE 7-10 (Severe Ondansetron HCl 4 mg 02/03/24 02:20 Ondansetron Inj 2 Mg/Ml Inj 2 Ml IV 03/04/24 02:19 Q6H PRN NAUSEA OR VOMITING Protocol Pantoprazole Sodium 40 mg 02/03/24 09:00 02/07/24 08:51 Pantoprazole Inj 40 Mg Vial IVP 03/04/24 08:59 40 mg QDAY SAIRA Administration Zinc Sulfate 220 mg 02/04/24 09:00 02/07/24 08:52 Zinc Sulfate 220 Mg Capsule PO 03/05/24 08:59 220 mg QDAY SAIRA Administration Plan An 88-year-old female patient with significant medical history for abdominal aortic aneurysm s/p stents, HLD, HTN, GERD, asthma and dementia presented to the ED of [facility] on 02/01 for distended abdomen. Patient was recently admitted to [facility] on 01/26/2024 and discharged on 02/01/2024 for septic pneumonia and RUDDY. In ED, BP 165/92, pulse 123, respiratory rate 26 and temperature 100.4 F, leukocytosis 15.7, creatinine 1.6 (baseline 1.1), lactic acid 1.1, BNP 322 and procalcitonin of 0.64. Abdomen/pelvis CT showed massive pneumoperitoneum, hyperdensity in the stomach with marked mucosal thickening, gastritis pattern with possible gastrointestinal bleeding, multiple air densities in the wall of the stomach suspicious for gastric perforation causing the pneumoperitoneum, gallbladder wall thickening. Patient was admitted for pneumoperitoneum management, requiring exploratory laparotomy consisting of sigmoid colectomy with low pelvic anastomosis, right colectomy, and excision of pelvic mass. Currently on PPN and NPO. Surgeon following patient. #Sepsis, stable Secondary to #Pneumoperitoneum #s/p sigmoid colectomy with low pelvic anastomosis on02/03/24, POD 4 #s/p right colectomy and excision of pelvic mass on 02/03/24, POD 4 #Leukocytosis Patient had distended abdomen after recent EGD and colonoscopy done in the hospital, subsequently found to have pneumoperitoneum. Abdomen pelvis imaging indicative of pneumoperitoneum, requiring surgery. On 02/03/2024: exploratory laparotomy completed with sigmoid colectomy with low pelvic anastomosis, right colectomy, and excision of pelvic mass. 50cc of blood loss. Patient is hemodynamically stable and tolerating PPN well. She has not had any bowel movements x 3 days while NPO and on PPN. WBC went from 16.9 to 17.7. Patient worked with physical therapy today. Patient sat in chair but appeared weak to PT. Plan: - General Surgeon Dr. Ayala consulted; recommended exploratory laparotomy- completed; Peripheral parenteral nutrition, Continue IV antibiotics. Use incentive spirometer and increase ambulation, NPO and Ice chips as needed. - GI Dr. Hsu consulted, recommended NG tube and continue IV antibiotics - incentive spirometry ? PPN given with goal rate of total fluids 75 cc per hour - beverage distiller on board - PT recommends SNF outpatient setting upon discharge. - Bed to chair and ambulate ? Zosyn IV 3.375 gm every 8 hours (02/03/24-day 4 - IV Vanco pharmacy to dose(02/02-02/04/24) ? Follow-up CBC and CMP #Hospital acquired pneumonia #COVID pneumonia Patient endorsed new onset productive cough x 2 days and was febrile, tachycardic, and tachypneic on presentation. Patient's tachycardia resolved. Patient seen with O2 sat 95% on oxy mask. She was recently admitted for septic pneumonia, discharged on p.o. Augmentin. Patient failed oral antibiotics as she now resulted COVID +. Procalcitonin 0.64. COVID +. Influenza negative, Cocci negative, strep A negative. Blood cultures neg x2 prelim. Plan: ? Antibiotics for pneumoperitoneum provides coverage for pneumonia ? DuoNebs as needed ? Tylenol suppository as needed for fever > 100.4 F ? Follow-up CBC #Macrocytic anemia Patient recently had surgical intervention which likely resulted in an imbalance of vitamin levels including folate and B12. ?Follow-up CBC ?Will closely monitor. #History of dementia Patient takes donepezil and memantine. ?Continue donepezil and memantine #History of AAA status post stents (following Dr. Pro) #Incidental finding of liver and splenic lesions, on CT a/p ?Follow-up outpatient #RUDDY, most likely prerenal, resolved Health Maintenance Dispo: Patient admitted for pneumoperitoneum, general surgeon consulted, s/p exploratory laparotomy with R. colectomy on PPN and IV Zosyn. Diet: PPN DVT/PPx: SCD GI ppx: Protonix Code Status: Full code Discussed case with my attending Dr. Luciano and Robert, PGY-3. Thank you, Courtney Russell, PGY-2 Attending Provider Attestation/Addendum I, Leonor Saldana, , attest that I was physically present for the hernandez portions of the service and evaluated the patient with the resident and I reviewed and discussed the case with the resident and agree with the resident's findings and plans of care as documented above Patient seen and evaluated this AM. She remains on 4L oxymask. Patient denies any chest pain or shortness of breath currently. She denies any abdominal pain. Will DC steroids at this time as patient appears improved and promote wound healing. Leukocytosis likely 2/2 steroids as well. Patient otherwise afebrile. She remains on PPN. Appreciate gen/surg recommendations. Monitor fluid status closely.
[2024-02-07] MEDS: POT PHOS 15 mMol in NS 250 ML 15 MMOL/250 ML BAG 62.5 MMOL IV (11:12)
[2024-02-07] MEDS: MAGNESIUM SULF IV (13:43)
[2024-02-07] MEDS: MULTIVITAMIN IV (13:43)
[2024-02-07] MEDS: [UNRECOGNIZED DRUG - OTHER] IV (13:43)
[2024-02-07] MEDS: POTASSIUM PHOS IV (13:43)
--- NOTE | 2024-02-07 20:22 | PD.IMPROG ---
Documentation for date of: 02/07/24 Subjective Subjective Interval history: No passage of flatus NGT is clamped No bowel movement Patient's status post sigmoid colectomy with no anastomosis as well as right colectomy for ischemia Exam Vital Signs Temp Pulse Resp BP Pulse Ox O2 Del Method O2 Flow Rate 97.9 F 108 H 22 H 162/69 H 96 Oxy Mask 4 02/07/24 20:00 02/07/24 20:00 02/07/24 20:00 02/07/24 20:00 02/07/24 20:00 02/07/24 20:00 02/07/24 20:00 Constitutional Comments: Chronically ill-appearing Routine Respiratory Exam Comments: Basal crepitations Routine Abdominal Exam Comments: Slightly distended Objective Labs 02/07/24 07:56 02/07/24 07:56 Labs: Laboratory Results - last 24 hr 02/07/24 07:56 WBC 17.7 H RBC 3.15 L Hgb 10.1 L D Hct 31.9 L MCV 101 H MCH 32.1 MCHC 31.7 RDW Std Deviation 52.1 H Plt Count 212 D Neut % (Auto) 83 H Lymph % (Auto) 4 L [place] % (Auto) 8 Eos % (Auto) 0 Baso % (Auto) 0 Neut # (Auto) 14.7 H Lymph # (Auto) 0.6 L [place] # (Auto) 1.4 H Eos # (Auto) 0.0 Baso # (Auto) 0.0 Immature Gran # (Auto) 0.91 H Absolute Nucleated RBC 0.00 Immature Gran % 5 H Nucleated RBC % 0 Sodium 143 Potassium 3.2 L Chloride 110 H Carbon Dioxide 26.5 Anion Gap 7 BUN 35 H Creatinine 0.8 Estim Creat Clear Calc 84.8 eGFR > 60 BUN/Creatinine Ratio 44 H Glucose 128 H Calculated Osmolality 294 Calcium 9.2 Corrected Calcium 9.5 Phosphorus 1.9 L Magnesium 1.9 Total Bilirubin 0.4 AST 26 ALT 17 Alkaline Phosphatase 66 Total Protein 6.3 Albumin 3.6 D Globulin 2.7 Albumin/Globulin Ratio 1.3 Impressions Impression: # Status post sigmoid colectomy with low anastomosis for ischemic perforation # Status post right colectomy for ischemia with primary anastomosis Continue current management Assessment & Plan A&P Narrative # After assessing the clinical picture clinical presentation reviewing the imaging study Findings of the CT scan showing air droplets in the gastric wall is a right hearing The only suspected perforation most likely is the left colon or may be another acute colonic event in the setting of her peripheral vascular disease Plan Continue broad-spectrum antibiotics Surgical exploration Discussed the case with Dr. Ayala Also spoke with her daughter at length Thank you once again for the opportunity to participate in the care of this patient Time Spent With Patient Time: Total time spent is greater than 50% in coordination of care (as documented) at patient's floor/unit and/or counseling patient:
[2024-02-08] VITALS (14 sets, daily range): BP systolic 127–177; BP diastolic 75–98; PULSE 89–133; RESP 20–37; TEMP 36–36.6; O2SAT 94–97; BMI 69.2; BMI 31.4; BMI 12.0
[2024-02-08 05:54] LABS: Basophils % (Auto) 0 % (0-2.5); Eosinophils # (Auto) 0.1 Thou/mm3 (0.0-0.5); Eosinophils % (Auto) 1 % (0-10); Hematocrit 31.8 % (36.0-46.0); Hemoglobin 10.1 g/dL (12.0-16.0); Immature Granulocytes % (Auto) 6 % (0-0); Immature Granulocytes Auto 0.95 Thou/mm3 (0.00-0.00); Lymphocytes # (Auto) 1.1 Thou/mm3 (1.0-4.8); Lymphocytes % (Auto) 7 % (10-50); Mean Corpuscular HGB Conc 31.8 g/dl (31.0-37.0); Mean Corpuscular Hemoglobin 31.9 pg (25.0-35.0); Mean Corpuscular Volume 100 fL (80-100); Monocytes # (Auto) 2.6 Thou/mm3 (0.0-0.8); Monocytes % (Auto) 16 % (0-12); Neutrophils # (Auto) 11.5 Thou/mm3 (1.8-7.7); Neutrophils % (Auto) 71 % (37-80); Nucleated Red Blood Cell # 0.02 Thou/mm3 (0.00-0.00); Nucleated Red Blood Cell % 0 /100 WBC (0); Platelet Count 202 Thou/mm3 (140-440); RDW Standard Deviation 51.9 fL (36.4-46.3); Red Blood Count 3.17 Miln/mm3 (4.00-5.20); White Blood Count 16.2 Thou/mm3 (3.6-11.0)
[2024-02-08] MEDS: PIPER/TAZO 3.375 GM 50 ML IV ×3 (06:18→21:05)
[2024-02-08 06:26] LABS: Alanine Aminotransferase 16 U/L (10-49); Albumin, Serum 3.3 gm/dL (3.4-4.8); Albumin/Globulin Ratio 1.3 (1.2-2.2); Alkaline Phosphatase 62 U/L (46-116); Anion Gap 8 (7-16); Aspartate Amino Transferase 20 U/L (0-34); BUN/Creatinine Ratio 46 Ratio (12-20); Bilirubin,Total 0.4 mg/dL (0.3-1.2); Blood Urea Nitrogen 32 mg/dL (9-23); Calcium 8.7 mg/dL (8.3-10.6); Calcium (Corrected) 9.3 mg/dL (8.5-10.1); Carbon Dioxide 25.6 mMol/L (20.0-31.0); Chloride 110 mMol/L (98-107); Creatinine (Component) 0.7 mg/dL (0.6-1.3); Estimated Creatinine Clearance 96.9 mL/min (>60); Globulin 2.6 gm/dL (2.3-3.5); Glucose 109 mg/dL (74-106); Magnesium 1.9 mg/dL (1.6-2.6); Osmolality,Calculated 294 (275-295); Phosphorous 2.8 mg/dL (2.4-5.1); Potassium 3.1 mMol/L (3.4-5.1); Sodium 144 mMol/L (136-145); Total Protein 5.9 gm/dL (5.7-8.2); eGFR > 60 See Note
[2024-02-08] MEDS: Magnesium Sulfate 2 GM Ivpb 2 GM/50 ML BAG IV (10:20)
[2024-02-08] MEDS: POT PHOS 15 mMol in NS 250 ML 15 MMOL/250 ML BAG 62.5 MMOL IV (10:20)
[2024-02-08] MEDS: AMINO ACIDS 4.25 %/D5W 1,000 ML 90 ML IV (10:21)
[2024-02-08] MEDS: ASCORBIC ACID 250 MG TABLET 500 MG PO ×2 (10:40→20:19)
[2024-02-08] MEDS: DOCUSATE SOD 100 MG CAPSULE PO ×2 (10:40→20:19)
[2024-02-08] MEDS: MEMANTINE HCL 5 MG TABLET 10 MG PO (10:41)
[2024-02-08] MEDS: ZINC SULFATE 220 MG CAPSULE PO (10:43)
[2024-02-08] MEDS: PANTOPRAZOLE INJ 40 MG VIAL IVP (10:43)
[2024-02-08] MEDS: amLODIPine BESYLATE 5 MG TABLET PO (10:43)
[2024-02-08] MEDS: LOSARTAN POTASSIUM 25 MG TABLET 100 MG PO (10:44)
--- NOTE | 2024-02-08 11:12 | ESPR_ITS ---
<Statement entered by Dick Jones DO - 02/08/24 21:45> Senior attestation: Patient was examined and case was reviewed with team including attending physician. Note reviewed, I agree with most of its contents and agree with the patient's care. General surgery following, has been started on clear liquid diet today with continued PPN. Dick Jones DO PGY-3 Documentation for date of: 02/08/24 Subjective Subjective Interval history: No acute overnight events. Patient seen and elevaluated at bedside. She endorses mild cough and denies phlegm. Patient denies headache, fever, chills, chest pain, palpitation, shortness of breath, dizziness, nausea, vomiting. Wheezing upper lung lobes bilaterally, and rales on lower lung lobes noted. Currently saturating at 95% on 3 L OxyMask, oxygen requirements have decreased during hospital course. Will continue PPN, IV antibiotics, n.p.o. and ice chips, incentive spirometry, ambulate patient with PT per surgery recommendations. Patient asked to be walk in the room today and informed nurse to aid. Anticipate SNF outpatient setting upon discharge. Exam Vital Signs Temp Pulse Resp BP Pulse Ox O2 Del Method O2 Flow Rate 97.3 F 105 H 23 H 138/78 H 95 Oxy Mask 4 02/08/24 08:00 02/08/24 10:44 02/08/24 08:00 02/08/24 10:44 02/08/24 08:00 02/08/24 08:00 02/08/24 08:00 Narrative Exam Constitutional: well-developed, well-nourished in no acute distress on oxymask. HEENT: NCAT, EOMI, reactive round pupils b/l, moist mucous membranes Lung: CTAB, upper lung lobes wheezing bilaterally, b/l rales all lung lobes, O2 sat 95% o3 L oxy mask Heart: Regular S1S2, no murmurs, gallops, or rubs Abdomen: Non-tender. ++ Bowel sounds. Surgical kamar at midline and abdominal Binder. Extremities: No cyanosis, clubbing, or edema, 1+ dorsalis pedis pulses present b/l Neurologic: Generally alert and oriented to person and place. Cranial nerves II to IV grossly intact. Skin: Warm, dry, no lesions or rashes noted Objective Labs 02/08/24 04:51 02/08/24 04:51 Labs: Laboratory Results - last 24 hr 02/08/24 04:51 WBC 16.2 H RBC 3.17 L Hgb 10.1 L Hct 31.8 L MCV 100 MCH 31.9 MCHC 31.8 RDW Std Deviation 51.9 H Plt Count 202 Neut % (Auto) 71 Lymph % (Auto) 7 L [place] % (Auto) 16 H Eos % (Auto) 1 Baso % (Auto) 0 Neut # (Auto) 11.5 H Lymph # (Auto) 1.1 [place] # (Auto) 2.6 H Eos # (Auto) 0.1 Baso # (Auto) 0.0 Immature Gran # (Auto) 0.95 H Absolute Nucleated RBC 0.02 H Immature Gran % 6 H Nucleated RBC % 0 Sodium 144 Potassium 3.1 L Chloride 110 H Carbon Dioxide 25.6 Anion Gap 8 BUN 32 H Creatinine 0.7 Estim Creat Clear Calc 96.9 eGFR > 60 BUN/Creatinine Ratio 46 H Glucose 109 H Calculated Osmolality 294 Calcium 8.7 Corrected Calcium 9.3 Phosphorus 2.8 Magnesium 1.9 Total Bilirubin 0.4 AST 20 ALT 16 Alkaline Phosphatase 62 Total Protein 5.9 Albumin 3.3 L Globulin 2.6 Albumin/Globulin Ratio 1.3 Quality Measures Quality Measures none Advance care planning discussed with:: patient Assessment & Plan Assessment Current Active Medications: Generic Name Dose Route Start Last Admin Trade Name Freq PRN Reason Stop Dose Admin Amlodipine Besylate 5 mg 02/03/24 09:00 02/08/24 10:43 Amlodipine Besylate 5 Mg Tablet PO 03/04/24 08:59 5 mg QDAY SAIRA Administration Ascorbic Acid 500 mg 02/03/24 21:00 02/08/24 10:40 Ascorbic Acid 250 Mg Tablet PO 03/04/24 20:59 500 mg BID SAIRA Administration Atorvastatin Calcium 40 mg 02/03/24 21:00 02/07/24 20:34 Atorvastatin Calcium 20 Mg Tablet PO 03/04/24 20:59 Not Given 2100 SAIRA Dextrose 25 ml 02/05/24 13:17 Dextrose 50%-Water Inj 50 Ml Syringe IV 03/06/24 13:16 Q15MIN PRN BG 50-70 responsive npo pt Dextrose 50 ml 02/05/24 13:17 Dextrose 50%-Water Inj 50 Ml Syringe IV 03/06/24 13:16 Q15MIN PRN BG <50 OR BG <70 & pt unresponsive Docusate Sodium 100 mg 02/03/24 21:00 02/08/24 10:40 Docusate Sod 100 Mg Capsule PO 03/04/24 20:59 100 mg BID SAIRA Administration Protocol Donepezil HCl 10 mg 02/03/24 21:00 02/07/24 20:34 Donepezil Hcl 5 Mg Tablet PO 03/04/24 20:59 Not Given QPM SAIRA Gabapentin 400 mg 02/03/24 21:00 02/07/24 20:34 Gabapentin 100 Mg Capsule PO 03/04/24 20:59 Not Given QPM SAIRA Glucagon 1 mg 02/05/24 13:17 Glucagon Inj 1 Mg Vial IM Q15MIN PRN BG <70, and no IV access Piperacillin/Tazobactam/Dextrose 50 mls @ 12.5 mls/hr 02/03/24 14:00 02/08/24 06:18 Zosyn IV 02/10/24 13:59 12.5 mls/hr Q8HR SAIRA Administration Protocol Fat Emulsion-Springs Oil/Soybean Oil 500 mls @ 31.25 mls/hr 02/08/24 18:00 Clinopid 20% Iv IV 03/09/24 17:59 [id number] [facility] Amino Acids 1,000 mls @ 90 mls/hr 02/08/24 09:02 02/08/24 10:21 Clinimix 4.25/5 IV 02/08/24 20:08 90 mls/hr .Q11H7M ONE Administration Potassium Phosphate 15 mmol in 250 mls @ 62.5 mls/hr 02/08/24 08:01 02/08/24 10:20 Pot Phos 15 Mmol In Ns 250 Ml IV 02/08/24 16:00 62.5 mls/hr Q4H SAIRA Administration Potassium Chloride 10 meq in 100 mls @ 100 mls/hr 02/08/24 12:00 Kcl Ivpb IV 02/08/24 15:59 Q1H SAIRA Insulin Human Regular 0 unit 02/05/24 18:00 02/08/24 06:26 Insulin Hum Regular 1 Unit/0.01 Ml (Per Unit) SC 03/06/24 17:59 Not Given Q6HR SAIRA Protocol Labetalol HCl 10 mg 02/03/24 04:44 02/05/24 12:30 Labetalol Inj 5 Mg/Ml Vial 20 Ml IVP 03/04/24 04:43 10 mg Q4H PRN Administration Hypertension Losartan Potassium 100 mg 02/06/24 09:00 02/08/24 10:44 Losartan Potassium 25 Mg Tablet PO 03/07/24 08:59 100 mg QDAY SAIRA Administration Memantine 10 mg 02/03/24 09:00 02/08/24 10:41 Memantine Hcl 5 Mg Tablet PO 03/04/24 08:59 10 mg QAM SAIRA Administration Ondansetron HCl 4 mg 02/03/24 02:20 Ondansetron Inj 2 Mg/Ml Inj 2 Ml IV 03/04/24 02:19 Q6H PRN NAUSEA OR VOMITING Protocol Pantoprazole Sodium 40 mg 02/03/24 09:00 02/08/24 10:43 Pantoprazole Inj 40 Mg Vial IVP 03/04/24 08:59 40 mg QDAY SAIRA Administration Zinc Sulfate 220 mg 02/04/24 09:00 02/08/24 10:43 Zinc Sulfate 220 Mg Capsule PO 03/05/24 08:59 220 mg QDAY SAIRA Administration Plan An 88-year-old female patient with significant medical history for abdominal aortic aneurysm s/p stents, HLD, HTN, GERD, asthma and dementia presented to the ED of [facility] on 02/01 for distended abdomen. Patient was recently admitted to [facility] on 01/26/2024 and discharged on 02/01/2024 for septic pneumonia and RUDDY. In ED, BP 165/92, pulse 123, respiratory rate 26 and temperature 100.4 F, leukocytosis 15.7, creatinine 1.6 (baseline 1.1), lactic acid 1.1, BNP 322 and procalcitonin of 0.64. Abdomen/pelvis CT showed massive pneumoperitoneum, hyperdensity in the stomach with marked mucosal thickening, gastritis pattern with possible gastrointestinal bleeding, multiple air densities in the wall of the stomach suspicious for gastric perforation causing the pneumoperitoneum, gallbladder wall thickening. Patient was admitted for pneumoperitoneum management, requiring exploratory laparotomy consisting of sigmoid colectomy with low pelvic anastomosis, right colectomy, and excision of pelvic mass. Currently on PPN and NPO. Surgeon following patient. #Sepsis, stable Secondary to #Pneumoperitoneum #s/p sigmoid colectomy with low pelvic anastomosis on02/03/24, POD 5 #s/p right colectomy and excision of pelvic mass on 02/03/24, POD 5 #Leukocytosis, improving Patient had distended abdomen after recent EGD and colonoscopy done in the hospital, subsequently found to have pneumoperitoneum. Abdomen pelvis imaging indicative of pneumoperitoneum, requiring surgical intervention. On 02/03/2024: exploratory laparotomy with sigmoid colectomy and low pelvic anastomosis, right colectomy, and excision of pelvic mass, 50cc of blood loss. Patient remains hemodynamically stable. PPN given for bowel rest. She had one loose bowel movement. WBC down trended from 17.7 to 16.2. Patient has experienced difficulty with lifting from the bed to chair. Physical therapy has worked with patient during hospitalization. Plan: - General Surgeon Dr. Ayala consulted; recommended exploratory laparotomy- completed; Peripheral parenteral nutrition, Continue IV antibiotics. Use incentive spirometer and increase ambulation, NPO and Ice chips as needed advance to clear liquid. - Per surgery recommendations, anticipate IV antibiotics for 1-2 more days. - GI Dr. Hsu consulted, recommended NG tube and continue IV antibiotics - incentive spirometry ? PPN given with goal rate of total fluids 75 cc per hour - financial brokers on board - PT recommends SNF outpatient setting upon discharge; goal: bed to chair and ambulate ? Zosyn IV 3.375 gm every 8 hours (02/03/24-day 5 - IV Vanco pharmacy to dose(02/02-02/04/24) ? Follow-up CBC and CMP #Hospital acquired pneumonia #COVID pneumonia Patient endorsed new onset productive cough x 2 days and was febrile, tachycardic, and tachypneic on presentation. Patient's tachycardia resolved. Patient seen with O2 sat 95% on oxy mask. She was recently admitted for septic pneumonia, discharged on p.o. Augmentin. Patient failed oral antibiotics as she now resulted COVID +. Procalcitonin 0.64. COVID +. Influenza negative, Cocci negative, strep A negative. Blood cultures neg x2. Plan: ? Supportive care ? Oxygen as needed ? Tylenol suppository as needed for fever > 100.4 F #Electrolyte abnormalities #Hyperchloremia #Hypokalemia Most likely secondary to IV saline and PPN. Possible dilutional component with fluid by IV leading to hypokalemia. -Potassium phosphorus IV x 1 -IV potassium chloride x 1 -Replete as needed -goal: K+>4, Mag+ >2. #Macrocytic anemia Patient recently had surgical intervention which likely resulted in an imbalance of vitamin levels including folate and B12. Hemoglobin 10.1, hematocrit, hematocrit 31.8%, MCV 100. ?Follow-up CBC ?Will closely monitor. #History of dementia Patient takes donepezil and memantine. ?Continue donepezil and memantine #History of AAA status post stents (following Dr. Pro) #Incidental finding of liver and splenic lesions, on CT a/p ?Follow-up outpatient #RUDDY, most likely prerenal, resolved Health Maintenance Dispo: Patient admitted for pneumoperitoneum, general surgeon consulted, s/p exploratory laparotomy with R. colectomy on PPN and IV Zosyn. Diet: PPN, advance to clear liquid DVT/PPx: SCD GI ppx: Protonix Code Status: Full code Discussed case with my attending Dr. Luciano and Robert, PGY-3. Thank you, Courtney Russell, PGY-2 Attending Provider Attestation/Addendum I have discussed and was present for the essential components of the history, physical examination, diagnosis, and treatment plan with the resident. I agree with the patient's care as documented by the resident and amended herein by me. Todd Luciano, DO. Patient seen and evaluated this AM. Vital signs stable, patient afebrile overnight, slightly tachycardic however with a pulse of 102, patient on oxime mask, SpO2 94%. Significant labs include a WBC of 16, slight downtrend from yesterday, BMP significant for sodium of 144, potassium of 3.1 which will be repleted. Patient on PPN and will remain on TPN for another 1 to 2 days per surgery, will continue to have the patient ambulate as she can tolerate. Blood pressure a bit high this morning, will continue to monitor and and correct as appropriate. PT on board, will continue to monitor closely Although this document has been carefully reviewed, there may still be some phonetic and other typographical errors. These errors are purely grammatical due to imperfections in the software program and should not be construed in any way to compromise the substance of the patient's medical care during this visit.
--- NOTE | 2024-02-08 11:55 | ESPR_ITS ---
Documentation for date of: 02/08/24 Subjective Subjective Narrative: Patient is seen and examined. She is resting comfortably. She has some productive coughing, denies abdominal pain. She was reported to have 2 bowel movements Exam Vital Signs Temp Pulse Resp BP Pulse Ox O2 Del Method O2 Flow Rate 97.3 F 105 H 23 H 138/78 H 95 Oxy Mask 4 02/08/24 08:00 02/08/24 10:44 02/08/24 08:00 02/08/24 10:44 02/08/24 08:00 02/08/24 08:00 02/08/24 08:00 Constitutional Constitutional: no acute distress Routine Abdominal Exam Abdominal: Present soft, normoactive bowel sounds, tenderness (Mild mina- incisional tenderness. Incision is clean, dry and intact) and distended (Very minimally distended) Assessment & Plan Assessment Additional comments: Postop day #5 status post sigmoid colectomy, right colectomy and excision of pelvic mass Plan Will start patient on clear liquids. Decrease PPN rate to 60 mL/h. If he is tolerating diet well will wean off PPN Procedures Procedures Exploratory laparotomy, sigmoid colectomy with low pelvic anastomosis Right colectomy Excision of pelvic mass
[2024-02-08] MEDS: POTASSIUM CHL 10 mEq IVPB 10 MEQ/100 ML BAG 100 MEQ IV (14:42)
--- NOTE | 2024-02-08 15:06 | PC.NURSE ---
Dr. Russell at bedside, notified of increase difficulty breathing and increase in oxygen from 4L to 7L, Dr. Russell going to put orders in for breathing treatment.
--- NOTE | 2024-02-08 15:07 | PC.SS ---
PASSR completed. Level II Mental Health Evaluation referral is not required due to a Categorical Condition. Pending on-line closure.
--- NOTE | 2024-02-08 15:22 | PC.SS ---
Rounding Note: Patient receiving IV antibiotics. Plan is for TPN for 2 more days.
[2024-02-08] MEDS: ACETYLCYSTEINE SOL 20% 4 ML NEBU 2 ML INH ×2 (15:37→22:48)
[2024-02-08] MEDS: SODIUM CHLORIDE RT SOL 0.9% 3 ML NEBU INH (15:37)
[2024-02-08] MEDS: LEVALBUTEROL RT 1.25 MG/0.5 ML NEBU INH ×2 (15:37→22:48)
--- NOTE | 2024-02-08 16:09 | PC.SS ---
SNF referral submitted on [facility]. Preferred SNF is [facility]. Results are pending.
--- NOTE | 2024-02-08 16:22 | PC.SS ---
HOUSEMAID notified by [facility] staff, Claire; documentation required indicating patient is Covid (+). No Covid test results in labs. Bedside test indicated Covid+. Documentation submitted to [facility].
[2024-02-08] MEDS: POTASSIUM CHL 10 mEq IVPB 10 MEQ/100 ML BAG 65 MEQ IV ×3 (16:28→21:05)
--- NOTE | 2024-02-08 17:54 | PC.NURSE ---
Dr. Russell notified of pain with potassium IV, ordered to change rate to 65ml/hr to reduce pain.
[2024-02-08] MEDS: FAT EMUL/OLIVE/SOY/PHOS 20% IV 500 ML 31.25 ML IV (19:30)
[2024-02-08] MEDS: INSULIN HUM REGULAR 1 UNIT/0.01 ML (PER UNIT) SC (19:48)
--- NOTE | 2024-02-08 20:16 | PD.IMPROG ---
Documentation for date of: 02/08/24 Subjective Subjective Interval history: Patient had a bowel movement Was started on clear liquid diet TPN being tapered off Exam Vital Signs Temp Pulse Resp BP Pulse Ox O2 Del Method O2 Flow Rate 97.9 F 133 H 30 H 127/98 H 95 Oxy Mask 4 02/08/24 16:00 02/08/24 18:12 02/08/24 18:12 02/08/24 16:00 02/08/24 18:12 02/08/24 16:00 02/08/24 18:12 Objective Labs 02/08/24 04:51 02/08/24 04:51 Labs: Laboratory Results - last 24 hr 02/08/24 04:51 WBC 16.2 H RBC 3.17 L Hgb 10.1 L Hct 31.8 L MCV 100 MCH 31.9 MCHC 31.8 RDW Std Deviation 51.9 H Plt Count 202 Neut % (Auto) 71 Lymph % (Auto) 7 L [place] % (Auto) 16 H Eos % (Auto) 1 Baso % (Auto) 0 Neut # (Auto) 11.5 H Lymph # (Auto) 1.1 [place] # (Auto) 2.6 H Eos # (Auto) 0.1 Baso # (Auto) 0.0 Immature Gran # (Auto) 0.95 H Absolute Nucleated RBC 0.02 H Immature Gran % 6 H Nucleated RBC % 0 Sodium 144 Potassium 3.1 L Chloride 110 H Carbon Dioxide 25.6 Anion Gap 8 BUN 32 H Creatinine 0.7 Estim Creat Clear Calc 96.9 eGFR > 60 BUN/Creatinine Ratio 46 H Glucose 109 H Calculated Osmolality 294 Calcium 8.7 Corrected Calcium 9.3 Phosphorus 2.8 Magnesium 1.9 Total Bilirubin 0.4 AST 20 ALT 16 Alkaline Phosphatase 62 Total Protein 5.9 Albumin 3.3 L Globulin 2.6 Albumin/Globulin Ratio 1.3 Impressions Impression: # Status post sigmoid colectomy right colectomy and primary anastomosis and excision of the pelvic mass Continue current management Assessment & Plan A&P Narrative # After assessing the clinical picture clinical presentation reviewing the imaging study Findings of the CT scan showing air droplets in the gastric wall is a right hearing The only suspected perforation most likely is the left colon or may be another acute colonic event in the setting of her peripheral vascular disease Plan Continue broad-spectrum antibiotics Surgical exploration Discussed the case with Dr. Ayala Also spoke with her daughter at length Thank you once again for the opportunity to participate in the care of this patient Time Spent With Patient Time: Total time spent is greater than 50% in coordination of care (as documented) at patient's floor/unit and/or counseling patient:
[2024-02-08] MEDS: GABAPENTIN 100 MG CAPSULE 400 MG PO (20:19)
[2024-02-08] MEDS: DONEPEZIL HCL 5 MG TABLET 10 MG PO (20:19)
[2024-02-08] MEDS: ATORVASTATIN CALCIUM 20 MG TABLET 40 MG PO (20:19)
[2024-02-08] MEDS: TPN-OUTSOURCED 1.5L - 2.49L 2,000 ML 90 ML IV (20:40)
[2024-02-08] MEDS: FUROSEMIDE INJ 10 MG/ML VIAL 2 ML 20 MG IVP (22:06)
[2024-02-09] VITALS (10 sets, daily range): BP systolic 95–150; BP diastolic 65–85; PULSE 96–124; RESP 22–40; TEMP 35.9–36.8; O2SAT 94–96
[2024-02-09] MEDS: INSULIN HUM REGULAR 1 UNIT/0.01 ML (PER UNIT) SC ×4 (00:32→17:48)
--- NOTE | 2024-02-09 02:24 | PC.NURSE ---
While taking PO medications, PT had a coughing fit, which raised HR to 150s briefly before returning to [facility] [place].
[2024-02-09] MEDS: PIPER/TAZO 3.375 GM 50 ML IV ×3 (05:18→21:13)
[2024-02-09 06:05] LABS: Basophils # (Auto) 0.1 Thou/mm3 (0.0-0.2); Basophils % (Auto) 0 % (0-2.5); Eosinophils % (Auto) 0 % (0-10); Hematocrit 34.2 % (36.0-46.0); Hemoglobin 11.3 g/dL (12.0-16.0); Immature Granulocytes % (Auto) 5 % (0-0); Immature Granulocytes Auto 1.25 Thou/mm3 (0.00-0.00); Lymphocytes # (Auto) 0.9 Thou/mm3 (1.0-4.8); Lymphocytes % (Auto) 3 % (10-50); Mean Corpuscular Hemoglobin 32.2 pg (25.0-35.0); Mean Corpuscular Volume 97 fL (80-100); Monocytes # (Auto) 4.3 Thou/mm3 (0.0-0.8); Monocytes % (Auto) 15 % (0-12); Neutrophils # (Auto) 21.5 Thou/mm3 (1.8-7.7); Neutrophils % (Auto) 77 % (37-80); Nucleated Red Blood Cell # 0.04 Thou/mm3 (0.00-0.00); Nucleated Red Blood Cell % 0 /100 WBC (0); Platelet Count 231 Thou/mm3 (140-440); RDW Standard Deviation 51.3 fL (36.4-46.3); Red Blood Count 3.51 Miln/mm3 (4.00-5.20)
[2024-02-09 06:57] LABS: Alanine Aminotransferase 17 U/L (10-49); Albumin, Serum 3.4 gm/dL (3.4-4.8); Albumin/Globulin Ratio 1.3 (1.2-2.2); Alkaline Phosphatase 72 U/L (46-116); Anion Gap 10 (7-16); Aspartate Amino Transferase 33 U/L (0-34); BUN/Creatinine Ratio 40 Ratio (12-20); Blood Urea Nitrogen 40 mg/dL (9-23); Calcium 9.2 mg/dL (8.3-10.6); Calcium (Corrected) 9.7 mg/dL (8.5-10.1); Carbon Dioxide 21.7 mMol/L (20.0-31.0); Chloride 106 mMol/L (98-107); Estimated Creatinine Clearance 42.4 mL/min (>60); Globulin 2.7 gm/dL (2.3-3.5); Glucose 140 mg/dL (74-106); Osmolality,Calculated 287 (275-295); Phosphorous 2.9 mg/dL (2.4-5.1); Potassium 3.7 mMol/L (3.4-5.1); Sodium 138 mMol/L (136-145); Total Protein 6.1 gm/dL (5.7-8.2); eGFR 55 See Note
--- NOTE | 2024-02-09 07:50 | PC.NURSE ---
IV infiltrated on Left arm, arm is very swollen and tender, Dr. Russell notified and notified that lipids and ppn stopped until IV access available.
--- NOTE | 2024-02-09 08:34 | PC.NURSE ---
Dr. Ayala called about infiltration if IV with ppn and lipids, ordered to dc ppn and lipids, ordered new full liquid diet, ordered ensure high protein between meals.
--- NOTE | 2024-02-09 09:56 | XR_ITS ---
Examination: Duplex scan of the upper extremity, unilateral left Date and time of exam: February 09, 2024 1051 hrs. Indications: Covid positive patient post colon surgery with left arm swelling beginning one week ago Technique: Duplex scan of the extremity veins using B-mode/grayscale imaging and Doppler spectral analysis and color flow Attention is directed to internal echogenicity, compression involving these veins, color flow assessment, spectral analysis Findings: Limited study, no diagnostic visualization jugular vein axillary vein or basilic vein No acute DVT noted Impression: Limited study with no acute deep vein thrombus demonstrated
[2024-02-09] MEDS: ASCORBIC ACID 250 MG TABLET 500 MG PO ×2 (10:56→20:42)
[2024-02-09] MEDS: MEMANTINE HCL 5 MG TABLET 10 MG PO (10:56)
[2024-02-09] MEDS: PANTOPRAZOLE INJ 40 MG VIAL IVP (10:56)
[2024-02-09] MEDS: ZINC SULFATE 220 MG CAPSULE PO (10:56)
[2024-02-09 11:27] LABS: Bilirubin,Total 0.5 mg/dL (0.3-1.2)
--- NOTE | 2024-02-09 13:36 | PD.IMPROG ---
Documentation for date of: 02/09/24 Subjective Subjective Interval history: Patient still appears to be somewhat short of breath Will give her additional IV Lasix 20 mg Continue other management Exam Vital Signs Temp Pulse Resp BP Pulse Ox O2 Del Method O2 Flow Rate 97.1 F 102 H 31 H 113/67 96 Oxy Mask 4 02/09/24 12:00 02/09/24 12:00 02/09/24 12:00 02/09/24 12:00 02/09/24 12:00 02/09/24 12:00 02/09/24 12:00 Objective Labs 02/09/24 04:45 02/09/24 04:45 Labs: Laboratory Results - last 24 hr 02/09/24 04:45 WBC 28.0 H D RBC 3.51 L Hgb 11.3 L Hct 34.2 L MCV 97 MCH 32.2 MCHC 33.0 RDW Std Deviation 51.3 H Plt Count 231 Neut % (Auto) 77 Lymph % (Auto) 3 L [place] % (Auto) 15 H Eos % (Auto) 0 Baso % (Auto) 0 Neut # (Auto) 21.5 H Lymph # (Auto) 0.9 L [place] # (Auto) 4.3 H Eos # (Auto) 0.0 Baso # (Auto) 0.1 Immature Gran # (Auto) 1.25 H Absolute Nucleated RBC 0.04 H Immature Gran % 5 H Nucleated RBC % 0 Sodium 138 Potassium 3.7 D Chloride 106 Carbon Dioxide 21.7 Anion Gap 10 BUN 40 H Creatinine 1.0 Estim Creat Clear Calc 42.4 L eGFR 55 L BUN/Creatinine Ratio 40 H Glucose 140 H Calculated Osmolality 287 Calcium 9.2 Corrected Calcium 9.7 Phosphorus 2.9 Magnesium 2.0 Total Bilirubin 0.5 AST 33 ALT 17 Alkaline Phosphatase 72 Total Protein 6.1 Albumin 3.4 Globulin 2.7 Albumin/Globulin Ratio 1.3 Impressions Impression: # Status post exploratory laparotomy with sigmoid resection and right colon resection # Volume overload given additional Lasix today Assessment & Plan A&P Narrative # After assessing the clinical picture clinical presentation reviewing the imaging study Findings of the CT scan showing air droplets in the gastric wall is a right hearing The only suspected perforation most likely is the left colon or may be another acute colonic event in the setting of her peripheral vascular disease Plan Continue broad-spectrum antibiotics Surgical exploration Discussed the case with Dr. Ayala Also spoke with her daughter at length Thank you once again for the opportunity to participate in the care of this patient Time Spent With Patient Time: Total time spent is greater than 50% in coordination of care (as documented) at patient's floor/unit and/or counseling patient:
--- NOTE | 2024-02-09 13:42 | ESPR_ITS ---
Documentation for date of: 02/09/24 Subjective Subjective Narrative: Patient is seen and examined. Her IV access in left upper extremity was infiltrated and she has swelling left arm, currently undergoing ultrasound. She has had increased shortness of breath and tachycardia. According to the nurse she has been tolerating clear liquids and had bowel movements Exam Vital Signs Temp Pulse Resp BP Pulse Ox O2 Del Method O2 Flow Rate 97.1 F 102 H 31 H 113/67 96 Oxy Mask 4 02/09/24 12:00 02/09/24 12:00 02/09/24 12:00 02/09/24 12:00 02/09/24 12:00 02/09/24 12:00 02/09/24 12:00 Routine Abdominal Exam Abdominal: Present soft, normoactive bowel sounds and tenderness (Minimal tend erness to palpation. Incision is clean, dry and intact); Absent distended Assessment & Plan Assessment Additional comments: Postop day #6 status post sigmoid colectomy, right colectomy and excision of pelvic mass. Sigmoid colon pathology revealed perforated diverticulitis, right colon showed marked dilatation of cecum and ascending colon, and the pelvic mass appeared to be large calcified epiploic appendage without evidence of malignancy Plan May advance to full liquid and Ensure supplements. Abdominal exam is benign. Continue IV antibiotics. Most of her issues appears to be pulmonary Procedures Procedures Exploratory laparotomy, sigmoid colectomy with low pelvic anastomosis Right colectomy Excision of pelvic mass
[2024-02-09] MEDS: FUROSEMIDE INJ 10 MG/ML VIAL 2 ML 20 MG IVP (14:30)
--- NOTE | 2024-02-09 15:59 | ESPR_ITS ---
<Statement entered by Dick Jones DO - 02/09/24 17:16> Senior attestation: Patient was examined and case was reviewed with team including attending physician. Note reviewed, I agree with most of its contents and agree with the patient's care. PPN has been discontinued, diet advanced to full liquid diet. Ultrasound of left upper extremity ordered due to extravasation and swelling concerns, no DVT noted. Dick Jones DO PGY-3 Documentation for date of: 02/09/24 Subjective Subjective Interval history: No acute overnight events. Patient seen and elevaluated at bedside. Patient continues to have cough. Patient still appears to be congested with rales on bilateral lungs. She is found to have left arm present with IV fluids infiltration. Patient required more oxygen: Up from 3 L yesterday to 4 L by OxyMask today. PPN was discontinued by Dr. Ayala surgeon and diet was advanced to full. IV antibiotics, incentive spirometry, ambulate patient with PT per surgery recommendations. Anticipate SNF outpatient setting upon discharge. Ultrasound Doppler of left upper extremity was ordered and resulted negative for DVT. Exam Vital Signs Temp Pulse Resp BP Pulse Ox O2 Del Method O2 Flow Rate 97.1 F 104 H 31 H 107/68 96 Oxy Mask 4 02/09/24 12:00 02/09/24 14:30 02/09/24 12:00 02/09/24 14:30 02/09/24 12:00 02/09/24 12:00 02/09/24 12:00 Narrative Exam Constitutional: well-developed, well-nourished in no acute distress on oxymask. HEENT: NCAT, EOMI, reactive round pupils b/l, moist mucous membranes Lung: CTAB, no wheezing, b/l rales all lung lobes, saturating 96% on 4 L oxy mask Heart: Regular S1S2, no murmurs, gallops, or rubs Abdomen: Non-tender. ++ Bowel sounds. Surgical kamar at midline and abdominal Binder. Extremities: Warm, edematous left upper extremity where PPN was being administered, 1+ dorsalis pedis pulses present b/l Neurologic: Generally alert and oriented to person and place. Skin: Warm, dry, no lesions or rashes noted Objective Labs 02/10/24 05:58 02/10/24 05:58 Labs: Laboratory Results - last 24 hr 02/09/24 04:45 WBC 28.0 H D RBC 3.51 L Hgb 11.3 L Hct 34.2 L MCV 97 MCH 32.2 MCHC 33.0 RDW Std Deviation 51.3 H Plt Count 231 Neut % (Auto) 77 Lymph % (Auto) 3 L [place] % (Auto) 15 H Eos % (Auto) 0 Baso % (Auto) 0 Neut # (Auto) 21.5 H Lymph # (Auto) 0.9 L [place] # (Auto) 4.3 H Eos # (Auto) 0.0 Baso # (Auto) 0.1 Immature Gran # (Auto) 1.25 H Absolute Nucleated RBC 0.04 H Immature Gran % 5 H Nucleated RBC % 0 Sodium 138 Potassium 3.7 D Chloride 106 Carbon Dioxide 21.7 Anion Gap 10 BUN 40 H Creatinine 1.0 Estim Creat Clear Calc 42.4 L eGFR 55 L BUN/Creatinine Ratio 40 H Glucose 140 H Calculated Osmolality 287 Calcium 9.2 Corrected Calcium 9.7 Phosphorus 2.9 Magnesium 2.0 Total Bilirubin 0.5 AST 33 ALT 17 Alkaline Phosphatase 72 Total Protein 6.1 Albumin 3.4 Globulin 2.7 Albumin/Globulin Ratio 1.3 Quality Measures Quality Measures none Advance care planning discussed with:: patient and other Assessment & Plan Assessment Current Active Medications: Generic Name Dose Route Start Last Admin Trade Name Freq PRN Reason Stop Dose Admin Acetylcysteine 2 ml 02/08/24 15:23 02/08/24 22:48 Acetylcysteine Itzel 20% 4 Ml Nebu INH 03/09/24 22:59 2 ml Q8HRRT PRN Administration Cough Or Congestion Amlodipine Besylate 5 mg 02/03/24 09:00 02/09/24 10:53 Amlodipine Besylate 5 Mg Tablet PO 03/04/24 08:59 Not Given QDAY SAIRA Ascorbic Acid 500 mg 02/03/24 21:00 02/09/24 10:56 Ascorbic Acid 250 Mg Tablet PO 03/04/24 20:59 500 mg BID SAIRA Administration Atorvastatin Calcium 40 mg 02/03/24 21:00 02/08/24 20:19 Atorvastatin Calcium 20 Mg Tablet PO 03/04/24 20:59 40 mg 2100 SAIRA Administration Dextrose 25 ml 02/05/24 13:17 Dextrose 50%-Water Inj 50 Ml Syringe IV 03/06/24 13:16 Q15MIN PRN BG 50-70 responsive npo pt Dextrose 50 ml 02/05/24 13:17 Dextrose 50%-Water Inj 50 Ml Syringe IV 03/06/24 13:16 Q15MIN PRN BG <50 OR BG <70 & pt unresponsive Docusate Sodium 100 mg 02/03/24 21:00 02/09/24 10:54 Docusate Sod 100 Mg Capsule PO 03/04/24 20:59 Not Given BID SAIRA Protocol Donepezil HCl 10 mg 02/03/24 21:00 02/08/24 20:19 Donepezil Hcl 5 Mg Tablet PO 03/04/24 20:59 10 mg QPM SAIRA Administration Furosemide 20 mg 02/09/24 13:45 02/09/24 14:30 Furosemide Inj 10 Mg/Ml Vial 2 Ml IVP 03/10/24 13:44 20 mg QDAY SAIRA Administration Gabapentin 400 mg 02/03/24 21:00 02/08/24 20:19 Gabapentin 100 Mg Capsule PO 03/04/24 20:59 400 mg QPM SAIRA Administration Glucagon 1 mg 02/05/24 13:17 Glucagon Inj 1 Mg Vial IM Q15MIN PRN BG <70, and no IV access Piperacillin/Tazobactam/Dextrose 50 mls @ 12.5 mls/hr 02/03/24 14:00 02/09/24 14:30 Zosyn IV 02/10/24 13:59 12.5 mls/hr Q8HR SAIRA Administration Protocol Insulin Human Regular 0 unit 02/05/24 18:00 02/09/24 12:21 Insulin Hum Regular 1 Unit/0.01 Ml (Per Unit) SC 03/06/24 17:59 2 unit Q6HR SAIRA Administration Protocol Labetalol HCl 10 mg 02/03/24 04:44 02/05/24 12:30 Labetalol Inj 5 Mg/Ml Vial 20 Ml IVP 03/04/24 04:43 10 mg Q4H PRN Administration Hypertension Levalbuterol HCl 1.25 mg 02/08/24 15:26 02/08/24 22:48 Levalbuterol Rt 1.25 Mg/0.5 Ml Nebu INH 03/09/24 22:59 1.25 mg Q8HRRT PRN Administration WHEEZING Losartan Potassium 100 mg 02/06/24 09:00 11/23/24 10:54 Losartan Potassium 25 Mg Tablet PO 03/07/24 08:59 Not Given QDAY SAIRA Memantine 10 mg 02/03/24 09:00 02/09/24 10:56 Memantine Hcl 5 Mg Tablet PO 03/04/24 08:59 10 mg QAM SAIRA Administration Ondansetron HCl 4 mg 02/03/24 02:20 Ondansetron Inj 2 Mg/Ml Inj 2 Ml IV 03/04/24 02:19 Q6H PRN NAUSEA OR VOMITING Protocol Pantoprazole Sodium 40 mg 02/03/24 09:00 02/09/24 10:56 Pantoprazole Inj 40 Mg Vial IVP 03/04/24 08:59 40 mg QDAY SAIRA Administration Sodium Chloride 3 ml 02/08/24 15:09 Sodium Chloride Rt Itzel 0.9% 3 Ml Nebu INH 03/09/24 15:08 PRN PRN SOLN Zinc Sulfate 220 mg 02/04/24 09:00 02/09/24 10:56 Zinc Sulfate 220 Mg Capsule PO 03/05/24 08:59 220 mg QDAY SAIRA Administration Plan An 88-year-old female patient with significant medical history for abdominal aortic aneurysm s/p stents, HLD, HTN, GERD, asthma and dementia presented to the ED of [facility] on 02/01 for distended abdomen. Patient was recently admitted to [facility] on 01/26/2024 and discharged on 02/01/2024 for septic pneumonia and RUDDY. In ED, BP 165/92, pulse 123, respiratory rate 26 and temperature 100.4 F, leukocytosis 15.7, creatinine 1.6 (baseline 1.1), lactic acid 1.1, BNP 322 and procalcitonin of 0.64. Abdomen/pelvis CT showed massive pneumoperitoneum, hyperdensity in the stomach with marked mucosal thickening, gastritis pattern with possible gastrointestinal bleeding, multiple air densities in the wall of the stomach suspicious for gastric perforation causing the pneumoperitoneum, gallbladder wall thickening. Patient was admitted for pneumoperitoneum management, requiring exploratory laparotomy consisting of sigmoid colectomy with low pelvic anastomosis, right colectomy, and excision of pelvic mass. Currently on full liquid diet. surgeon following patient. #Sepsis, stable Secondary to #Pneumoperitoneum #s/p sigmoid colectomy with low pelvic anastomosis on02/03/24, POD 5 #s/p right colectomy and excision of pelvic mass on 02/03/24, POD 5 #Leukocytosis, improving Patient had distended abdomen after recent EGD and colonoscopy done in the hospital, subsequently found to have pneumoperitoneum. Abdomen pelvis imaging indicative of pneumoperitoneum, requiring surgical intervention. On 02/03/2024: exploratory laparotomy with sigmoid colectomy and low pelvic anastomosis, right colectomy, and excision of pelvic mass, 50cc of blood loss. Patient remains hemodynamically stable. PPN given for bowel rest completed. She has had bowel movements. WBC up to 28 from 16.8. Physical therapy will continue working with patient during the weekday. She was found to have left arm present with IV fluids infiltration, followed by ultrasound Doppler which is negative for DVT. Anticipate SNF outpatient setting upon discharge. Plan: - General Surgeon Dr. Ayala consulted; recommended exploratory laparotomy- completed; Peripheral parenteral nutrition completed. Continue IV antibiotics. Use incentive spirometer and increase ambulation, advanced to full diet. - Per surgery recommendations, anticipate IV antibiotics for 1-2 more days. - GI Dr. Hsu consulted, recommended NG tube and continue IV antibiotics - incentive spirometry ? PPN was discontinued by Dr. Ayala surgeon and diet was advanced to full - cap inspector on board - PT recommends SNF outpatient setting upon discharge; goal: bed to chair and ambulate ? Zosyn IV 3.375 gm every 8 hours (02/03/24-day 5 - IV Vanco pharmacy to dose(02/02-02/04/24) ? Follow-up CBC and CMP #Hospital acquired pneumonia, stable #COVID pneumonia Patient endorsed new onset productive cough x 2 days and was febrile, tachycardic, and tachypneic on presentation. Patient remains tachypneic and tachycardic and she required more oxygen: Up from 3 L yesterday to 4 L by OxyMask today. Saturating at 96% on 4 L OxyMask. She was recently admitted for septic pneumonia, discharged on p.o. Augmentin. Patient failed oral antibiotics as she now resulted COVID +. Procalcitonin 0.64. Patient possibly acquired pneumonia from recent prior hospitalization. COVID +. Influenza negative, Cocci negative, strep A negative. Blood cultures neg x2. Plan: ? Supportive care ? Oxygen as needed ? Tylenol suppository as needed for fever > 100.4 F #Electrolyte abnormalities #Hyperchloremia-resolved #Hypokalemia Most likely secondary to recent administration of PPN. Possible dilutional component with fluid by IV leading to hypokalemia. Plan: -Replete as needed -goal: K+>4, Mag+ >2. #Macrocytic anemia Patient recently had surgical intervention which likely resulted in an imbalance of vitamin levels including folate and B12. Hemoglobin 11.3, hematocrit 34.2%, MCV 97. Plan: ?Follow-up CBC ?Will closely monitor. #History of dementia Patient takes donepezil and memantine. Plan: ?Continue donepezil and memantine #History of AAA status post stents (following Dr. Pro) #Incidental finding of liver and splenic lesions, on CT a/p Plan: ?Follow-up outpatient #RUDDY, most likely prerenal, resolved Health Maintenance Dispo: Patient admitted for pneumoperitoneum, general surgeon consulted, s/p exploratory laparotomy with R. colectomy, advance to full liquid diet. Diet: Full liquid DVT/PPx: SCD GI ppx: Protonix Code Status: Full code Discussed case with my attending Dr. Rodriguez and Robert, PGY-3. Thank you, Courtney Russell, PGY-2 Attending Provider Attestation/Addendum Face to face evaluation was performed by me. I have personally seen and examined the patient. I discussed the assessment and plan with the entire medicine team. I reviewed available medical records, imaging studies, laboratory results. 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 -Status post emergent surgical intervention as in the chart. Follow surgery recommendations. General surgery, GI following appreciate recommendations. -Continue IV empiric antibiotics with Zosyn, usually plan is 7-14-day course depending on clinical scenario Continue other medications as ordered avoid nephrotoxic agents
--- NOTE | 2024-02-09 18:48 | PC.NURSE ---
Notified Dr. Yeh about ring on left hand with extensive edema, Dr. Yeh verbalized if needed to try to remove ring and if unable to use ring remover, mold shifter notified.
[2024-02-09] MEDS: GABAPENTIN 100 MG CAPSULE 400 MG PO (20:41)
[2024-02-09] MEDS: DONEPEZIL HCL 5 MG TABLET 10 MG PO (20:41)
[2024-02-09] MEDS: DOCUSATE SOD 100 MG CAPSULE PO (20:42)
[2024-02-09] MEDS: ATORVASTATIN CALCIUM 20 MG TABLET 40 MG PO (20:42)
[2024-02-10] VITALS (14 sets, daily range): BP systolic 104–132; BP diastolic 57–80; PULSE 81–106; RESP 17–27; TEMP 36.1–36.6; O2SAT 94–98
[2024-02-10] MEDS: INSULIN HUM REGULAR 1 UNIT/0.01 ML (PER UNIT) SC ×3 (00:33→17:21)
[2024-02-10] MEDS: PIPER/TAZO 3.375 GM 50 ML IV (05:46)
[2024-02-10 06:26] LABS: Basophils % (Auto) 0 % (0-2.5); Eosinophils # (Auto) 0.1 Thou/mm3 (0.0-0.5); Eosinophils % (Auto) 0 % (0-10); Hematocrit 25.4 % (36.0-46.0); Immature Granulocytes % (Auto) 5 % (0-0); Immature Granulocytes Auto 1.17 Thou/mm3 (0.00-0.00); Lymphocytes # (Auto) 1.1 Thou/mm3 (1.0-4.8); Lymphocytes % (Auto) 5 % (10-50); Mean Corpuscular HGB Conc 33.1 g/dl (31.0-37.0); Mean Corpuscular Hemoglobin 32.3 pg (25.0-35.0); Mean Corpuscular Volume 98 fL (80-100); Monocytes % (Auto) 16 % (0-12); Neutrophils # (Auto) 17.9 Thou/mm3 (1.8-7.7); Neutrophils % (Auto) 74 % (37-80); Nucleated Red Blood Cell # 0.02 Thou/mm3 (0.00-0.00); Nucleated Red Blood Cell % 0 /100 WBC (0); Platelet Count 185 Thou/mm3 (140-440); RDW Standard Deviation 52.2 fL (36.4-46.3); White Blood Count 24.2 Thou/mm3 (3.6-11.0)
[2024-02-10 06:33] LABS: Hemoglobin 8.4 g/dL (12.0-16.0)
[2024-02-10 06:42] LABS: Alanine Aminotransferase 21 U/L (10-49); Albumin/Globulin Ratio 1.3 (1.2-2.2); Alkaline Phosphatase 68 U/L (46-116); Anion Gap 11 (7-16); Aspartate Amino Transferase 37 U/L (0-34); BUN/Creatinine Ratio 37 Ratio (12-20); Bilirubin,Total 0.4 mg/dL (0.3-1.2); Blood Urea Nitrogen 48 mg/dL (9-23); Calcium 8.9 mg/dL (8.3-10.6); Calcium (Corrected) 9.7 mg/dL (8.5-10.1); Carbon Dioxide 22.8 mMol/L (20.0-31.0); Chloride 106 mMol/L (98-107); Creatinine (Component) 1.3 mg/dL (0.6-1.3); Estimated Creatinine Clearance 32.8 mL/min (>60); Globulin 2.4 gm/dL (2.3-3.5); Glucose 101 mg/dL (74-106); Osmolality,Calculated 292 (275-295); Potassium 3.2 mMol/L (3.4-5.1); Sodium 140 mMol/L (136-145); Total Protein 5.4 gm/dL (5.7-8.2); eGFR 40 See Note
[2024-02-10] MEDS: ASCORBIC ACID 250 MG TABLET 500 MG PO ×2 (10:10→20:23)
[2024-02-10] MEDS: DOCUSATE SOD 100 MG CAPSULE PO ×2 (10:10→20:23)
[2024-02-10] MEDS: MEMANTINE HCL 5 MG TABLET 10 MG PO (10:11)
[2024-02-10] MEDS: ZINC SULFATE 220 MG CAPSULE PO (10:11)
[2024-02-10] MEDS: PANTOPRAZOLE INJ 40 MG VIAL IVP (10:11)
[2024-02-10] MEDS: FUROSEMIDE INJ 10 MG/ML VIAL 2 ML 20 MG IVP (10:11)
[2024-02-10] MEDS: POTASSIUM CHLORIDE 20 mEq TABCR 40 MEQ PO (11:34)
--- NOTE | 2024-02-10 13:20 | PD.SURPROG ---
Documentation for date of: 02/10/24 Subjective Subjective Narrative: Patient is seen and examined. She is alert and awake. She continues to have increased work of breathing. She is tolerating a full liquid and continues to have bowel movements Exam Vital Signs Temp Pulse Resp BP Pulse Ox O2 Del Method O2 Flow Rate 96.9 F 90 22 H 108/58 L 95 Nasal Cannula 4 02/10/24 11:42 02/10/24 11:42 02/10/24 11:42 02/10/24 11:42 02/10/24 11:42 02/10/24 11:42 02/10/24 11:42 Constitutional Constitutional: no acute distress Routine Abdominal Exam Comments: Abdomen is soft and mildly distended. Incision is clean, dry and intact. She has minimal tenderness around incision. Incision is clean, dry and intact Assessment & Plan Assessment Additional comments: Postop day #7 status post sigmoid colectomy, right colectomy and excision of pelvic mass. Plan WBC improving, continue IV antibiotics. Will advance to soft diet. Procedures Procedures Exploratory laparotomy, sigmoid colectomy with low pelvic anastomosis Right colectomy Excision of pelvic mass
--- NOTE | 2024-02-10 13:43 | PD.ADDPROG ---
Addendum Progress Note Addendum Date of report being addended: 02/10/24 Narrative: Face to face evaluation was performed by me. I have personally seen and examined the patient. I discussed the assessment and plan with the entire medicine team. I reviewed available medical records, imaging studies, laboratory results. 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 Left upper extremity forearm swelling and tenderness due to IV extravasation -Patient seems to be stable, no family at bedside. Denies any acute events. Parenteral nutrition stopped, now on oral diet. IV furosemide- -was added for her left upper extremity swelling, swelling is improving. She is wearing green but looks like finger swelling is down ring is movable and she does not want to remove with unless is absolutely necessary. Monitor closely. Good capillary refill noted in her fingers. Left upper extremity ultrasound was negative for DVT -Status post emergent surgical intervention as in the chart. Follow surgery recommendations. General surgery, GI following appreciate recommendations. -Continue IV empiric antibiotics with Zosyn, usually plan is 7-14-day course depending on clinical scenario Continue other medications as ordered avoid nephrotoxic agents
--- NOTE | 2024-02-10 13:55 | ESPR_ITS ---
<Statement entered by Dick Jones DO - 02/10/24 16:32> Senior attestation: Patient was examined and case was reviewed with team including attending physician. Note reviewed, I agree with most of its contents and agree with the patient's care. On full liquid diet, will advance following general surgery recommendations. Left arm appears to be improving, no DVT per venous doppler. Patient on IV zosyn. Dick Jones DO PGY-3 Documentation for date of: 02/10/24 Subjective Subjective Interval history: Patient seen at bedside. No acute overnight events. Today, she is not complaining of abdominal pain, had 2 bowel movements overnight. Patient is still on oxygen, currently saturating 95% on 4 L by nasal cannula. She had diet advanced yesterday to full liquid per Dr Ayala, patient is on day 8 of IV Zosyn. WBC downtrending, 24.2 today. Hemoglobin also dropped from 11.3-8.4 today. Potassium 3.2 today, will replete. Will continue to monitor hemoglobin levels. Edema of left upper arm resolving, patient does have a wedding band on and will prefer to keep it on unless absolutely necessary for removal. Not too tight, capillary refill is normal, discussed with nurse that if it gets worse, wedding band should be taken off. Patient was started on IV Lasix 20 mg, duplex ultrasound was negative for DVT. Exam Vital Signs Temp Pulse Resp BP Pulse Ox O2 Del Method O2 Flow Rate 96.9 F 90 22 H 108/58 L 95 Nasal Cannula 4 02/10/24 11:42 02/10/24 11:42 02/10/24 11:42 02/10/24 11:42 02/10/24 11:42 02/10/24 11:42 02/10/24 11:42 Narrative Exam GENERAL: AAOX3 NEURO: HAND QUILTER grossly intact, moves extremities x4 HEENT: Moist mucosa. Eyes open, symmetrical, & clear, nasal cannula-in situ CARDIO: No chest pain on palpation. Heart RRR, no obvious murmurs PULM: No noted coughing/dyspnea. Lungs CTA B/L, saturating 95% on 4L GI: Abdomen soft, non tender to palpation. BSx4 URO/TEACHER EDUCATION DIRECTOR:: No further abnormalities noted. SKIN/MSK/EXT: Left upper arm edema resolving. Objective Labs 02/10/24 05:58 02/10/24 05:58 Labs: Laboratory Results - last 24 hr 02/10/24 05:58 WBC 24.2 H RBC 2.60 L Hgb 8.4 L D Hct 25.4 L MCV 98 MCH 32.3 MCHC 33.1 RDW Std Deviation 52.2 H Plt Count 185 D Neut % (Auto) 74 Lymph % (Auto) 5 L Luce % (Auto) 16 H Eos % (Auto) 0 Baso % (Auto) 0 Neut # (Auto) 17.9 H Lymph # (Auto) 1.1 Luce # (Auto) 4.0 H Eos # (Auto) 0.1 Baso # (Auto) 0.0 Immature Gran # (Auto) 1.17 H Absolute Nucleated RBC 0.02 H Immature Gran % 5 H Nucleated RBC % 0 Sodium 140 Potassium 3.2 L D Chloride 106 Carbon Dioxide 22.8 Anion Gap 11 BUN 48 H Creatinine 1.3 Estim Creat Clear Calc 32.8 L eGFR 40 L BUN/Creatinine Ratio 37 H Glucose 101 Calculated Osmolality 292 Calcium 8.9 Corrected Calcium 9.7 Total Bilirubin 0.4 AST 37 H ALT 21 Alkaline Phosphatase 68 Total Protein 5.4 L Albumin 3.0 L Globulin 2.4 Albumin/Globulin Ratio 1.3 Quality Measures Quality Measures none Advance care planning discussed with:: patient Assessment & Plan Assessment Current Active Medications: Generic Name Dose Route Start Last Admin Trade Name Freq PRN Reason Stop Dose Admin Acetaminophen 650 mg 02/10/24 12:39 Acetaminophen 325 Mg Tablet PO 03/11/24 12:38 Q6HR PRN Pain and Fever >101 Acetylcysteine 2 ml 02/08/24 15:23 02/08/24 22:48 Acetylcysteine Itzel 20% 4 Ml Nebu INH 03/09/24 22:59 2 ml Q8HRRT PRN Administration Cough Or Congestion Albuterol/Ipratropium 3 ml 02/10/24 13:00 Albuterol/Ipratropium (Duoneb) Rt Itzel 3 Ml Nebu INH 03/11/24 12:59 Q6HRRT [facility] Amlodipine Besylate 5 mg 02/03/24 09:00 02/10/24 10:02 Amlodipine Besylate 5 Mg Tablet PO 03/04/24 08:59 Not Given QDAY [facility] Ascorbic Acid 500 mg 02/03/24 21:00 02/10/24 10:10 Ascorbic Acid 250 Mg Tablet PO 03/04/24 20:59 500 mg BID SAIRA Administration Atorvastatin Calcium 40 mg 02/03/24 21:00 02/09/24 20:42 Atorvastatin Calcium 20 Mg Tablet PO 03/04/24 20:59 40 mg 2100 SAIRA Administration Dextrose 25 ml 02/05/24 13:17 Dextrose 50%-Water Inj 50 Ml Syringe IV 03/06/24 13:16 Q15MIN PRN BG 50-70 responsive npo pt Dextrose 50 ml 02/05/24 13:17 Dextrose 50%-Water Inj 50 Ml Syringe IV 03/06/24 13:16 Q15MIN PRN BG <50 OR BG <70 & pt unresponsive Docusate Sodium 100 mg 02/03/24 21:00 02/10/24 10:10 Docusate Sod 100 Mg Capsule PO 03/04/24 20:59 100 mg BID SAIRA Administration Protocol Donepezil HCl 10 mg 02/03/24 21:00 02/09/24 20:41 Donepezil Hcl 5 Mg Tablet PO 03/04/24 20:59 10 mg QPM SAIRA Administration Furosemide 20 mg 02/09/24 13:45 02/10/24 10:11 Furosemide Inj 10 Mg/Ml Vial 2 Ml IVP 03/10/24 13:44 20 mg QDAY SAIRA Administration Gabapentin 400 mg 02/03/24 21:00 02/09/24 20:41 Gabapentin 100 Mg Capsule PO 03/04/24 20:59 400 mg QPM SAIRA Administration Glucagon 1 mg 02/05/24 13:17 Glucagon Inj 1 Mg Vial IM Q15MIN PRN BG <70, and no IV access Piperacillin/Tazobactam/Dextrose 50 mls @ 12.5 mls/hr 02/03/24 14:00 02/10/24 05:46 Zosyn IV 02/10/24 13:59 12.5 mls/hr Q8HR SAIRA Administration Protocol Insulin Human Regular 0 unit 02/05/24 18:00 02/10/24 11:34 Insulin Hum Regular 1 Unit/0.01 Ml (Per Unit) SC 03/06/24 17:59 2 unit Q6HR SAIRA Administration Protocol Labetalol HCl 10 mg 02/03/24 04:44 02/05/24 12:30 Labetalol Inj 5 Mg/Ml Vial 20 Ml IVP 03/04/24 04:43 10 mg Q4H PRN Administration Hypertension Levalbuterol HCl 1.25 mg 02/08/24 15:26 02/08/24 22:48 Levalbuterol Rt 1.25 Mg/0.5 Ml Nebu INH 03/09/24 22:59 1.25 mg Q8HRRT PRN Administration WHEEZING Losartan Potassium 100 mg 02/06/24 09:00 02/10/24 10:03 Losartan Potassium 25 Mg Tablet PO 03/07/24 08:59 Not Given QDAY SAIRA Memantine 10 mg 02/03/24 09:00 02/10/24 10:11 Memantine Hcl 5 Mg Tablet PO 03/04/24 08:59 10 mg QAM SAIRA Administration Ondansetron HCl 4 mg 02/03/24 02:20 Ondansetron Inj 2 Mg/Ml Inj 2 Ml IV 03/04/24 02:19 Q6H PRN NAUSEA OR VOMITING Protocol Pantoprazole Sodium 40 mg 02/03/24 09:00 02/10/24 10:11 Pantoprazole Inj 40 Mg Vial IVP 03/04/24 08:59 40 mg QDAY SAIRA Administration Sodium Chloride 3 ml 02/08/24 15:09 Sodium Chloride Rt Itzel 0.9% 3 Ml Nebu INH 03/09/24 15:08 PRN PRN SOLN Zinc Sulfate 220 mg 02/04/24 09:00 02/10/24 10:11 Zinc Sulfate 220 Mg Capsule PO 03/05/24 08:59 220 mg QDAY SAIRA Administration Plan Summary: The patient is an 88-year-old female patient with significant medical history for abdominal aortic aneurysm s/p stents, HLD, HTN, GERD, asthma and dementia presented to the ED of [facility] on 02/01 for distended abdomen. Patient was admitted for pneumoperitoneum management, requiring exploratory laparotomy consisting of sigmoid colectomy with low pelvic anastomosis, right colectomy, and excision of pelvic mass. Currently on full liquid diet. #Sepsis, stable Secondary to #Pneumoperitoneum #s/p sigmoid colectomy with low pelvic anastomosis on02/03/24, POD 5 #s/p right colectomy and excision of pelvic mass on 02/03/24, POD 5 #Leukocytosis, improving Patient had distended abdomen after recent EGD and colonoscopy done in the hospital, subsequently found to have pneumoperitoneum. Abdomen pelvis imaging indicative of pneumoperitoneum, requiring surgical intervention. On 02/03/2024: exploratory laparotomy with sigmoid colectomy and low pelvic anastomosis, right colectomy, and excision of pelvic mass, 50cc of blood loss. 02/10/2024- Today, she is not complaining of abdominal pain, had 2 bowel movements overnight. Patient is still on oxygen, currently saturating 95% on 4 L by nasal cannula. She had diet advanced yesterday to full liquid per Dr Ayala, patient is on day 8 of IV Zosyn. WBC downtrending, 24.2 today. Hemoglobin also dropped from 11.3-8.4 today. Potassium 3.2 today, will replete. Will continue to monitor hemoglobin levels. Plan: - CT incentive spirometry - General Surgery on board, following recommendations - PT recommends SNF outpatient setting upon discharge; goal: bed to chair and ambulate ? Continue Zosyn IV 3.375 gm every 8 hours (02/03/24-day 6 ? Follow-up CBC and CMP #Hospital acquired pneumonia, stable #COVID pneumonia Patient endorsed new onset productive cough x 2 days and was febrile, tachycardic, and tachypneic on presentation. Patient remains tachypneic and tachycardic and she required more oxygen: Up from 3 L yesterday to 4 L by OxyMask today. Saturating at 96% on 4 L OxyMask. She was recently admitted for septic pneumonia, discharged on p.o. Augmentin. Patient failed oral antibiotics as she now resulted COVID +. Procalcitonin 0.64. Patient possibly acquired pneumonia from recent prior hospitalization. COVID +. Influenza negative, Cocci negative, strep A negative. Blood cultures neg x2. Plan: ? Supportive care, breathing treatments added ? Oxygen as needed ? Tylenol suppository as needed for fever > 100.4 F #Electrolyte abnormalities #Hyperchloremia-resolved #Hypokalemia Most likely secondary to recent administration of PPN. Possible dilutional component with fluid by IV leading to hypokalemia. Potassium today- 3.2 Plan: -Replete as needed -goal: K+>4, Mag+ >2. #Macrocytic anemia Patient recently had surgical intervention which likely resulted in an imbalance of vitamin levels including folate and B12. Hemoglobin 8.4, hematocrit 34.2%, MCV 97. Plan: ?Follow-up CBC ?Will closely monitor. #History of dementia Patient takes donepezil and memantine. Plan: ?Continue donepezil and memantine #History of AAA status post stents (following Dr. Pro) #Incidental finding of liver and splenic lesions, on CT a/p Plan: ?Follow-up outpatient #RUDDY, most likely prerenal, resolved Health Maintenance Dispo: Patient admitted for pneumoperitoneum, general surgeon consulted, s/p exploratory laparotomy with R. colectomy, advance to full liquid diet. Diet: Full liquid DVT/PPx: GI ppx: Protonix Code Status: Full code Case was discussed with senior resident Dr Jones and attending physician, Dr Jennifer Fitzgerald MD PGY-1
[2024-02-10] MEDS: ACETAMINOPHEN 325 MG TABLET 650 MG PO (15:16)
--- NOTE | 2024-02-10 17:55 | PC.NURSE ---
Was able to get rings off both hands using petroleum jelly, son at bedside and wanted to take rings home instead of keeping them in hospital safe. Son signed for rings in patient belongings and took them home.
--- NOTE | 2024-02-10 18:15 | ESPR_ITS ---
Documentation for date of: 02/10/24 Subjective Subjective Interval history: Patient has COVID-pneumonia Edema is much better after IV Lasix Had 2 bowel movements WBC count is trending downwards from 28.2-24.2 There is a drop in hemoglobin hematocrit from 11.3-8.4 although no signs of any active bleeding On a full liquid diet Exam Vital Signs Temp Pulse Resp BP Pulse Ox O2 Del Method O2 Flow Rate 97.2 F 83 22 H 119/71 97 Nasal Cannula 4 02/10/24 16:00 02/10/24 16:00 02/10/24 16:00 02/10/24 16:00 02/10/24 16:00 02/10/24 16:00 02/10/24 16:00 Objective Labs 02/10/24 05:58 02/10/24 05:58 Labs: Laboratory Results - last 24 hr 02/10/24 05:58 WBC 24.2 H RBC 2.60 L Hgb 8.4 L D Hct 25.4 L MCV 98 MCH 32.3 MCHC 33.1 RDW Std Deviation 52.2 H Plt Count 185 D Neut % (Auto) 74 Lymph % (Auto) 5 L Garrett % (Auto) 16 H Eos % (Auto) 0 Baso % (Auto) 0 Neut # (Auto) 17.9 H Lymph # (Auto) 1.1 Garrett # (Auto) 4.0 H Eos # (Auto) 0.1 Baso # (Auto) 0.0 Immature Gran # (Auto) 1.17 H Absolute Nucleated RBC 0.02 H Immature Gran % 5 H Nucleated RBC % 0 Sodium 140 Potassium 3.2 L D Chloride 106 Carbon Dioxide 22.8 Anion Gap 11 BUN 48 H Creatinine 1.3 Estim Creat Clear Calc 32.8 L eGFR 40 L BUN/Creatinine Ratio 37 H Glucose 101 Calculated Osmolality 292 Calcium 8.9 Corrected Calcium 9.7 Total Bilirubin 0.4 AST 37 H ALT 21 Alkaline Phosphatase 68 Total Protein 5.4 L Albumin 3.0 L Globulin 2.4 Albumin/Globulin Ratio 1.3 Impressions Impression: # Status post right colectomy for ischemia # Status post sigmoid colectomy with low-lying anastomosis continue current management Assessment & Plan A&P Narrative # After assessing the clinical picture clinical presentation reviewing the imaging study Findings of the CT scan showing air droplets in the gastric wall is a right hearing The only suspected perforation most likely is the left colon or may be another acute colonic event in the setting of her peripheral vascular disease Plan Continue broad-spectrum antibiotics Surgical exploration Discussed the case with Dr. Ayala Also spoke with her daughter at length Thank you once again for the opportunity to participate in the care of this patient Time Spent With Patient Time: Total time spent is greater than 50% in coordination of care (as documented) at patient's floor/unit and/or counseling patient:
[2024-02-10] MEDS: ALBUTEROL/IPRATROPIUM (Duoneb) RT SOL 3 ML NEBU INH (18:27)
[2024-02-10] MEDS: DONEPEZIL HCL 5 MG TABLET 10 MG PO (20:23)
[2024-02-10] MEDS: ATORVASTATIN CALCIUM 20 MG TABLET 40 MG PO (20:23)
[2024-02-10] MEDS: GABAPENTIN 100 MG CAPSULE 400 MG PO (20:23)
[2024-02-11] VITALS (20 sets, daily range): BP systolic 106–158; BP diastolic 57–100; PULSE 67–135; RESP 15–24; TEMP 36.1–36.8; O2SAT 90–99
[2024-02-11] MEDS: ALBUTEROL/IPRATROPIUM (Duoneb) RT SOL 3 ML NEBU INH ×4 (01:54→19:33)
[2024-02-11 05:57] LABS: Basophils % (Auto) 0 % (0-2.5); Eosinophils # (Auto) 0.1 Thou/mm3 (0.0-0.5); Eosinophils % (Auto) 1 % (0-10); Hematocrit 31.6 % (36.0-46.0); Hemoglobin 10.1 g/dL (12.0-16.0); Immature Granulocytes % (Auto) 5 % (0-0); Immature Granulocytes Auto 0.85 Thou/mm3 (0.00-0.00); Lymphocytes # (Auto) 0.9 Thou/mm3 (1.0-4.8); Lymphocytes % (Auto) 5 % (10-50); Mean Corpuscular Hemoglobin 32.2 pg (25.0-35.0); Mean Corpuscular Volume 101 fL (80-100); Monocytes # (Auto) 3.9 Thou/mm3 (0.0-0.8); Monocytes % (Auto) 20 % (0-12); Neutrophils # (Auto) 13.3 Thou/mm3 (1.8-7.7); Neutrophils % (Auto) 70 % (37-80); Nucleated Red Blood Cell % 0 /100 WBC (0); Platelet Count 167 Thou/mm3 (140-440); RDW Standard Deviation 54.1 fL (36.4-46.3); Red Blood Count 3.14 Miln/mm3 (4.00-5.20)
[2024-02-11 06:46] LABS: Alanine Aminotransferase 19 U/L (10-49); Albumin, Serum 3.2 gm/dL (3.4-4.8); Albumin/Globulin Ratio 1.2 (1.2-2.2); Alkaline Phosphatase 75 U/L (46-116); Anion Gap 11 (7-16); Aspartate Amino Transferase 43 U/L (0-34); BUN/Creatinine Ratio 35 Ratio (12-20); Bilirubin,Total 0.4 mg/dL (0.3-1.2); Blood Urea Nitrogen 38 mg/dL (9-23); Calcium 9.2 mg/dL (8.3-10.6); Calcium (Corrected) 9.8 mg/dL (8.5-10.1); Carbon Dioxide 22.8 mMol/L (20.0-31.0); Chloride 111 mMol/L (98-107); Creatinine (Component) 1.1 mg/dL (0.6-1.3); Estimated Creatinine Clearance 38.3 mL/min (>60); Globulin 2.7 gm/dL (2.3-3.5); Glucose 90 mg/dL (74-106); Magnesium 1.8 mg/dL (1.6-2.6); Osmolality,Calculated 297 (275-295); Phosphorous 4.4 mg/dL (2.4-5.1); Potassium 3.5 mMol/L (3.4-5.1); Sodium 145 mMol/L (136-145); Total Protein 5.9 gm/dL (5.7-8.2); eGFR 49 See Note
--- NOTE | 2024-02-11 08:25 | XR_ITS ---
Examination: AP chest single view Technique one AP portable upright chest single view Exam date and time: February 11, 2024 0839 hours Comparison January 26, 2024 INDICATIONS: Difficulty breathing today FINDINGS: Mild enlargement cardiac contour Moderate vascular congestion. Pneumonia left base with left pleural fluid Prominent osteopenia IMPRESSION: Suspicious for mild heart failure Left base pneumonia with left pleural fluid
[2024-02-11] MEDS: PANTOPRAZOLE INJ 40 MG VIAL IVP (09:15)
[2024-02-11] MEDS: FUROSEMIDE INJ 10 MG/ML VIAL 2 ML 20 MG IVP ×3 (09:16→15:57)
[2024-02-11] MEDS: LOSARTAN POTASSIUM 25 MG TABLET 100 MG PO (09:16)
[2024-02-11] MEDS: MEMANTINE HCL 5 MG TABLET 10 MG PO (09:18)
[2024-02-11] MEDS: amLODIPine BESYLATE 5 MG TABLET PO (09:18)
[2024-02-11] MEDS: ZINC SULFATE 220 MG CAPSULE PO (09:18)
[2024-02-11] MEDS: DOCUSATE SOD 100 MG CAPSULE PO ×2 (09:18→21:35)
[2024-02-11] MEDS: ASCORBIC ACID 250 MG TABLET 500 MG PO ×2 (09:18→21:35)
--- NOTE | 2024-02-11 10:26 | PC.SS ---
[facility] follow up completed. [facility] staff, Duglas Spencer; to close referral. On line closure pending.
--- NOTE | 2024-02-11 10:56 | PC.SS ---
Update: General surgery is following patient. Recommendations are pending.
--- NOTE | 2024-02-11 12:28 | PD.SURPROG ---
Documentation for date of: 02/11/24 Subjective Subjective Narrative: Patient is seen and examined. She is resting comfortably, pain is improving. She is tolerating diet without nausea or vomiting and having bowel movements Exam Vital Signs Temp Pulse Resp BP Pulse Ox O2 Del Method O2 Flow Rate 97.1 F 89 20 132/69 H 98 Oxy Mask 6 02/11/24 08:00 02/11/24 09:18 02/11/24 08:20 02/11/24 09:18 02/11/24 08:20 02/11/24 08:00 02/11/24 08:20 Constitutional Constitutional: no acute distress Routine Abdominal Exam Abdominal: Present soft, normoactive bowel sounds and tenderness (Mild tenderness around the incision. Incision is clean, dry and intact); Absent distended Assessment & Plan Assessment Additional comments: Postop day #8 status post sigmoid colectomy, right colectomy and excision of pelvic mass. Plan White count improving. She has remained afebrile. Continue IV antibiotics for additional 48 hours. Procedures Procedures Exploratory laparotomy, sigmoid colectomy with low pelvic anastomosis Right colectomy Excision of pelvic mass
--- NOTE | 2024-02-11 12:56 | PC.NURSE ---
patient o2sats low 80,s on 7 liters,oxymask, called dr. linder and made aware, new order to change o2 to high flow.
[2024-02-11] MEDS: PIPER/TAZO 3.375 GM 3.375 GM/50 ML BAG IV ×2 (13:34→21:35)
--- NOTE | 2024-02-11 15:18 | EKG_ITS ---
[facility] Test Date: 2024-02-11 Pat Name: SHELLEY DIEGO Department: [facility] Gender: Female Design Editor: VIKTOR : 1935 Requested By: Opal Fitzgerald Order Number: [id number] Reading MD: Opal Fitzgerald Measurements Intervals [place] Rate: 135 P: AL: QRS: -13 QRSD: 86 T: -7 QT: 222 QTc: 333 Interpretive Statements ATRIAL FIBRILLATION WITH RAPID VENTRICULAR RESPONSE POSSIBLE RIGHT VENTRICULAR CONDUCTION DELAY ST DEVIATION AND MODERATE T-WAVE ABNORMALITY, CONSIDER LATERAL ISCHEMIA Compared to ECG 08/23/2022 16:31:52 T-wave abnormality now present Possible ischemia now present Atrial-paced complex(es) or rhythm no longer present /store/S0/[id number]/[id number]
--- NOTE | 2024-02-11 15:24 | ESPR_ITS ---
Documentation for date of: 02/11/24 Subjective Subjective Interval history: Patient seen at bedside. No acute overnight events. Patient complains of some pain in her gluteal region. She is also noted to have increasing oxygen requirements, oxygen has been increased from 4 to 6 L via oxygen mask. Patient is tolerating full liquid diet and had 3 bowel movements overnight. WBC downtrending, [address] Ayala, will keep IV Zosyn on. Will also do a repeat chest x- ray due to the patient's increasing oxygen requirements and give extra dose of IV Lasix. Will also evaluate if patient has decubitus ulcers and get wound care to follow- up on that as well as optimize pain medications. Advancing diet per surgery recommendations. 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 Eyes open, symmetrical, & clear, nasal cannula-in situ CARDIO: No chest pain on palpation. Heart RRR, no obvious murmurs PULM: No noted coughing but tachypneic. Lungs CTA B/L, saturating 95% on 4L GI: Abdomen soft, non tender to palpation. 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 SKIN/MSK/EXT: Left upper arm edema resolving. Objective Labs 02/12/24 04:36 02/12/24 04:36 Labs: Laboratory Results - last 24 hr 02/11/24 05:23 WBC 19.0 H D RBC 3.14 L Hgb 10.1 L D Hct 31.6 L MCV 101 H MCH 32.2 MCHC 32.0 RDW Std Deviation 54.1 H Plt Count 167 Neut % (Auto) 70 Lymph % (Auto) 5 L Dodge % (Auto) 20 H Eos % (Auto) 1 Baso % (Auto) 0 Neut # (Auto) 13.3 H Lymph # (Auto) 0.9 L [place] # (Auto) 3.9 H Eos # (Auto) 0.1 Baso # (Auto) 0.0 Immature Gran # (Auto) 0.85 H Absolute Nucleated RBC 0.00 Immature Gran % 5 H Nucleated RBC % 0 Sodium 145 Potassium 3.5 Chloride 111 H Carbon Dioxide 22.8 Anion Gap 11 BUN 38 H Creatinine 1.1 Estim Creat Clear Calc 38.3 L eGFR 49 L BUN/Creatinine Ratio 35 H Glucose 90 Calculated Osmolality 297 H Calcium 9.2 Corrected Calcium 9.8 Phosphorus 4.4 Magnesium 1.8 Total Bilirubin 0.4 AST 43 H ALT 19 Alkaline Phosphatase 75 Total Protein 5.9 Albumin 3.2 L Globulin 2.7 Albumin/Globulin Ratio 1.2 Quality Measures Quality Measures none Advance care planning discussed with:: patient Assessment & Plan Assessment Current Active Medications: Generic Name Dose Route Start Last Admin Trade Name Freq PRN Reason Stop Dose Admin Acetaminophen 650 mg 02/10/24 12:39 02/10/24 15:16 Acetaminophen 325 Mg Tablet PO 03/11/24 12:38 650 mg Q6HR PRN Administration Pain and Fever >101 Acetylcysteine 2 ml 02/08/24 15:23 02/08/24 22:48 Acetylcysteine Itzel 20% 4 Ml Nebu INH 03/09/24 22:59 2 ml Q8HRRT PRN Administration Cough Or Congestion Albuterol/Ipratropium 3 ml 02/10/24 13:00 02/11/24 13:00 Albuterol/Ipratropium (Duoneb) Rt Itzel 3 Ml Nebu INH 03/11/24 12:59 3 ml Q6HRRT SAIRA Administration Amlodipine Besylate 5 mg 02/03/24 09:00 02/11/24 09:18 Amlodipine Besylate 5 Mg Tablet PO 03/04/24 08:59 5 mg QDAY SAIRA Administration Ascorbic Acid 500 mg 02/03/24 21:00 02/11/24 09:18 Ascorbic Acid 250 Mg Tablet PO 03/04/24 20:59 500 mg BID SAIRA Administration Atorvastatin Calcium 40 mg 02/03/24 21:00 02/10/24 20:23 Atorvastatin Calcium 20 Mg Tablet PO 03/04/24 20:59 40 mg 2100 SAIRA Administration Dextrose 25 ml 02/05/24 13:17 Dextrose 50%-Water Inj 50 Ml Syringe IV 03/06/24 13:16 Q15MIN PRN BG 50-70 responsive npo pt Dextrose 50 ml 02/05/24 13:17 Dextrose 50%-Water Inj 50 Ml Syringe IV 03/06/24 13:16 Q15MIN PRN BG <50 OR BG <70 & pt unresponsive Docusate Sodium 100 mg 02/03/24 21:00 02/11/24 09:18 Docusate Sod 100 Mg Capsule PO 03/04/24 20:59 100 mg BID SAIRA Administration Protocol Donepezil HCl 10 mg 02/03/24 21:00 02/10/24 20:23 Donepezil Hcl 5 Mg Tablet PO 03/04/24 20:59 10 mg QPM SAIRA Administration Furosemide 20 mg 02/09/24 13:45 02/11/24 09:16 Furosemide Inj 10 Mg/Ml Vial 2 Ml IVP 03/10/24 13:44 20 mg QDAY SAIRA Administration Gabapentin 400 mg 02/03/24 21:00 02/10/24 20:23 Gabapentin 100 Mg Capsule PO 03/04/24 20:59 400 mg QPM SAIRA Administration Glucagon 1 mg 02/05/24 13:17 Glucagon Inj 1 Mg Vial IM Q15MIN PRN BG <70, and no IV access Piperacillin/Tazobactam/Dextrose 3.375 gm in 50 mls @ 12.5 mls/hr 02/11/24 13:30 02/11/24 13:34 Zosyn IV 02/18/24 13:29 12.5 mls/hr Q8HR SAIRA Administration Protocol Insulin Human Regular 0 unit 02/05/24 18:00 02/11/24 13:28 Insulin Hum Regular 1 Unit/0.01 Ml (Per Unit) SC 03/06/24 17:59 Not Given Q6HR SAIRA Protocol Ketorolac Tromethamine 30 mg 02/11/24 12:48 Ketorolac Inj 30 Mg/Ml Vial IVP 02/16/24 12:47 X1 PRN Pain 4-10 Labetalol HCl 10 mg 02/03/24 04:44 02/05/24 12:30 Labetalol Inj 5 Mg/Ml Vial 20 Ml IVP 03/04/24 04:43 10 mg Q4H PRN Administration Hypertension Levalbuterol HCl 1.25 mg 02/08/24 15:26 02/08/24 22:48 Levalbuterol Rt 1.25 Mg/0.5 Ml Nebu INH 03/09/24 22:59 1.25 mg Q8HRRT PRN Administration WHEEZING Losartan Potassium 100 mg 02/06/24 09:00 02/11/24 09:16 Losartan Potassium 25 Mg Tablet PO 03/07/24 08:59 100 mg QDAY SAIRA Administration Memantine 10 mg 02/03/24 09:00 02/11/24 09:18 Memantine Hcl 5 Mg Tablet PO 03/04/24 08:59 10 mg QAM SAIRA Administration Ondansetron HCl 4 mg 02/03/24 02:20 Ondansetron Inj 2 Mg/Ml Inj 2 Ml IV 03/04/24 02:19 Q6H PRN NAUSEA OR VOMITING Protocol Pantoprazole Sodium 40 mg 02/03/24 09:00 02/11/24 09:15 Pantoprazole Inj 40 Mg Vial IVP 03/04/24 08:59 40 mg QDAY SAIRA Administration Sodium Chloride 3 ml 02/08/24 15:09 Sodium Chloride Rt Itzel 0.9% 3 Ml Nebu INH 03/09/24 15:08 PRN PRN SOLN Zinc Sulfate 220 mg 02/04/24 09:00 02/11/24 09:18 Zinc Sulfate 220 Mg Capsule PO 03/05/24 08:59 220 mg QDAY SAIRA Administration Plan Summary: The patient is an 88-year-old female patient with significant medical history for abdominal aortic aneurysm s/p stents, HLD, HTN, GERD, asthma and dementia presented to the ED of [facility] on 02/01 for distended abdomen. Patient was admitted for pneumoperitoneum management, requiring exploratory laparotomy consisting of sigmoid colectomy with low pelvic anastomosis, right colectomy, and excision of pelvic mass. Currently on full liquid diet. #Sepsis, stable Secondary to #Pneumoperitoneum #s/p sigmoid colectomy with low pelvic anastomosis on02/03/24, POD 8 #s/p right colectomy and excision of pelvic mass on 02/03/24, POD 8 #Leukocytosis, improving Patient had distended abdomen after recent EGD and colonoscopy done in the hospital, subsequently found to have pneumoperitoneum. Abdomen pelvis imaging indicative of pneumoperitoneum, requiring surgical intervention. On 02/03/2024: exploratory laparotomy with sigmoid colectomy and low pelvic anastomosis, right colectomy, and excision of pelvic mass, 50cc of blood loss. 02/11/2024- Patient complains of some pain in her gluteal region. She is also noted to have increasing oxygen requirements, oxygen has been increased from 4 to 6 L via oxygen mask. Patient is tolerating full liquid diet and had 3 bowel movements overnight. WBC downtrending, [address] Ayala, will keep IV Zosyn on. Will also do a repeat chest x-ray due to the patient's increasing oxygen requirements and give extra dose of IV Lasix Plan: - CT incentive spirometry - Follow repeat CXR - General Surgery on board, following recommendations - PT recommends SNF outpatient setting upon discharge; goal: bed to chair and ambulate ? Continue Zosyn IV 3.375 gm every 8 hours (Day 8 today) ? Follow-up CBC and CMP #Hospital acquired pneumonia, stable #COVID pneumonia Patient endorsed new onset productive cough x 2 days and was febrile, tachycardic, and tachypneic on presentation. Patient remains tachypneic and tachycardic and she required more oxygen: Up from 3 L yesterday to 4 L by OxyMask today. Saturating at 96% on 4 L OxyMask. She was recently admitted for septic pneumonia, discharged on p.o. Augmentin. Patient failed oral antibiotics as she now resulted COVID +. Procalcitonin 0.64. Patient possibly acquired pneumonia from recent prior hospitalization. COVID +. Influenza negative, Cocci negative, strep A negative. Blood cultures neg x2. Plan: ? Supportive care, breathing treatments added ? Oxygen as needed ? Tylenol suppository as needed for fever > 100.4 F #Electrolyte abnormalities #Hyperchloremia-resolved #Hypokalemia Most likely secondary to recent administration of PPN. Possible dilutional component with fluid by IV leading to hypokalemia. Potassium today- 3.2 Plan: -Replete as needed -goal: K+>4, Mag+ >2. #Macrocytic anemia Patient recently had surgical intervention which likely resulted in an imbalance of vitamin levels including folate and B12. Hemoglobin 8.4, hematocrit 34.2%, MCV 97. Plan: ?Follow-up CBC ?Will closely monitor. #History of dementia Patient takes donepezil and memantine. Plan: ?Continue donepezil and memantine #History of AAA status post stents (following Dr. Pro) #Incidental finding of liver and splenic lesions, on CT a/p Plan: ?Follow-up outpatient #RUDDY, most likely prerenal, resolved Health Maintenance Dispo: Patient admitted for pneumoperitoneum, general surgeon consulted, s/p exploratory laparotomy with R. colectomy, advance to full liquid diet. Diet: Full liquid DVT/PPx: GI ppx: Protonix Code Status: Full code Case was discussed with attending physician, Dr Mustapha Fitzgerald MD PGY-1 Attending Provider Attestation/Addendum I have discussed and was present for the essential components of the history, physical examination, diagnosis, and treatment plan with the resident. I agree with the patient's care as documented by the resident and amended herein by me. Todd Luciano DO. Although this document has been carefully reviewed, there may still be some phonetic and other typographical errors. These errors are purely grammatical due to imperfections in the software program and should not be construed in any way to compromise the substance of the patient's medical care during this visit.
[2024-02-11] MEDS: KETOROLAC INJ 30 MG/ML VIAL IVP (15:40)
[2024-02-11] MEDS: METOPROLOL TARTRATE INJ 1 MG/ML AMP 5 ML 2.5 MG IVP (15:55)
[2024-02-11] MEDS: POTASSIUM CHLORIDE 20 mEq TABCR 40 MEQ PO (15:57)
[2024-02-11] MEDS: Magnesium Sulfate 4 GM Ivpb 4 GM/50 ML BAG IV (15:58)
[2024-02-11 16:25] LABS: Lactate (Lactic Acid) 1.6 mMol/L (0.4-2.0)
[2024-02-11 19:01] LABS: Anion Gap 10 (7-16); BUN/Creatinine Ratio 32 Ratio (12-20); Blood Urea Nitrogen 32 mg/dL (9-23); Calcium 8.8 mg/dL (8.3-10.6); Carbon Dioxide 26.5 mMol/L (20.0-31.0); Chloride 108 mMol/L (98-107); Estimated Creatinine Clearance 42.1 mL/min (>60); Glucose 115 mg/dL (74-106); Osmolality,Calculated 294 (275-295); Potassium 3.5 mMol/L (3.4-5.1); Sodium 144 mMol/L (136-145); Troponin I < 0.020 ng/mL (0.0-0.045); eGFR 55 See Note
--- NOTE | 2024-02-11 20:21 | ESPR_ITS ---
Documentation for date of: 02/11/24 Subjective Subjective Interval history: Patient evaluated WBC count came down from 24,000-19.0 Hemoglobin hematocrit 10.1 and 31.6 Tolerating full liquid diet and had 3 bowel movements Less abdominal pain and discomfort Oxygen requirement has gone up to 6 L Exam Vital Signs Temp Pulse Resp BP Pulse Ox O2 Del Method O2 Flow Rate 98.2 F 67 20 136/65 H 99 Oxy Mask 35 02/11/24 16:00 02/11/24 16:00 02/11/24 16:00 02/11/24 16:00 02/11/24 16:00 02/11/24 16:00 02/11/24 16:00 FiO2 40 02/11/24 16:00 Routine Abdominal Exam Comments: Positive bowel sounds tender Objective Labs 02/11/24 05:23 02/11/24 17:20 Labs: Laboratory Results - last 24 hr 02/11/24 02/11/24 02/11/24 05:23 16:05 17:20 WBC 19.0 H D RBC 3.14 L Hgb 10.1 L D Hct 31.6 L MCV 101 H MCH 32.2 MCHC 32.0 RDW Std Deviation 54.1 H Plt Count 167 Neut % (Auto) 70 Lymph % (Auto) 5 L [place] % (Auto) 20 H Eos % (Auto) 1 Baso % (Auto) 0 Neut # (Auto) 13.3 H Lymph # (Auto) 0.9 L [place] # (Auto) 3.9 H Eos # (Auto) 0.1 Baso # (Auto) 0.0 Immature Gran # (Auto) 0.85 H Absolute Nucleated RBC 0.00 Immature Gran % 5 H Nucleated RBC % 0 Sodium 145 144 Potassium 3.5 3.5 Chloride 111 H 108 H Carbon Dioxide 22.8 26.5 Anion Gap 11 10 BUN 38 H 32 H Creatinine 1.1 1.0 Estim Creat Clear Calc 38.3 L 42.1 L eGFR 49 L 55 L BUN/Creatinine Ratio 35 H 32 H Glucose 90 115 H Calculated Osmolality 297 H 294 Lactic Acid 1.6 Calcium 9.2 8.8 Corrected Calcium 9.8 Phosphorus 4.4 Magnesium 1.8 Total Bilirubin 0.4 AST 43 H ALT 19 Alkaline Phosphatase 75 Troponin I < 0.020 Total Protein 5.9 Albumin 3.2 L Globulin 2.7 Albumin/Globulin Ratio 1.2 Impressions Impression: # Status post sigmoid colectomy and diverting colostomy # Status post right colectomy and primary anastomosis # Improving leukocytosis # Positive for COVID with hypoxemia Continue current management Assessment & Plan A&P Narrative # After assessing the clinical picture clinical presentation reviewing the imaging study Findings of the CT scan showing air droplets in the gastric wall is a right hearing The only suspected perforation most likely is the left colon or may be another acute colonic event in the setting of her peripheral vascular disease Plan Continue broad-spectrum antibiotics Surgical exploration Discussed the case with Dr. Ayala Also spoke with her daughter at length Thank you once again for the opportunity to participate in the care of this patient Time Spent With Patient Time: Total time spent is greater than 50% in coordination of care (as documented) at patient's floor/unit and/or counseling patient:
[2024-02-11] MEDS: GABAPENTIN 100 MG CAPSULE 400 MG PO (21:34)
[2024-02-11] MEDS: DONEPEZIL HCL 5 MG TABLET 10 MG PO (21:35)
[2024-02-11] MEDS: ATORVASTATIN CALCIUM 20 MG TABLET 40 MG PO (21:35)
[2024-02-12] VITALS (16 sets, daily range): BP systolic 101–125; BP diastolic 57–70; PULSE 65–107; RESP 17–22; TEMP 35.9–37.1; O2SAT 89–99; BMI 30.6
[2024-02-12] MEDS: ALBUTEROL/IPRATROPIUM (Duoneb) RT SOL 3 ML NEBU INH ×4 (01:38→19:29)
[2024-02-12] MEDS: PIPER/TAZO 3.375 GM 3.375 GM/50 ML BAG IV ×3 (05:11→21:43)
[2024-02-12 05:45] LABS: Basophils % (Auto) 0 % (0-2.5); Eosinophils # (Auto) 0.1 Thou/mm3 (0.0-0.5); Eosinophils % (Auto) 1 % (0-10); Hemoglobin 9.5 g/dL (12.0-16.0); Immature Granulocytes % (Auto) 5 % (0-0); Lymphocytes # (Auto) 0.8 Thou/mm3 (1.0-4.8); Lymphocytes % (Auto) 6 % (10-50); Mean Corpuscular HGB Conc 31.7 g/dl (31.0-37.0); Mean Corpuscular Hemoglobin 31.7 pg (25.0-35.0); Mean Corpuscular Volume 100 fL (80-100); Monocytes # (Auto) 2.9 Thou/mm3 (0.0-0.8); Monocytes % (Auto) 21 % (0-12); Neutrophils # (Auto) 9.4 Thou/mm3 (1.8-7.7); Neutrophils % (Auto) 68 % (37-80); Nucleated Red Blood Cell % 0 /100 WBC (0); Platelet Count 226 Thou/mm3 (140-440); RDW Standard Deviation 54.2 fL (36.4-46.3); White Blood Count 13.9 Thou/mm3 (3.6-11.0)
[2024-02-12 06:24] LABS: Alanine Aminotransferase 22 U/L (10-49); Albumin, Serum 3.4 gm/dL (3.4-4.8); Albumin/Globulin Ratio 1.2 (1.2-2.2); Alkaline Phosphatase 80 U/L (46-116); Anion Gap 8 (7-16); Aspartate Amino Transferase 37 U/L (0-34); BUN/Creatinine Ratio 26 Ratio (12-20); Bilirubin,Total 0.6 mg/dL (0.3-1.2); Blood Urea Nitrogen 31 mg/dL (9-23); Calcium 9.3 mg/dL (8.3-10.6); Calcium (Corrected) 9.8 mg/dL (8.5-10.1); Carbon Dioxide 26.7 mMol/L (20.0-31.0); Chloride 109 mMol/L (98-107); Creatinine (Component) 1.2 mg/dL (0.6-1.3); Estimated Creatinine Clearance 34.7 mL/min (>60); Globulin 2.8 gm/dL (2.3-3.5); Glucose 97 mg/dL (74-106); Magnesium 2.7 mg/dL (1.6-2.6); Osmolality,Calculated 293 (275-295); Phosphorous 3.5 mg/dL (2.4-5.1); Potassium 3.6 mMol/L (3.4-5.1); Sodium 144 mMol/L (136-145); Total Protein 6.2 gm/dL (5.7-8.2); eGFR 44 See Note
[2024-02-12] MEDS: MEMANTINE HCL 5 MG TABLET 10 MG PO (08:55)
[2024-02-12] MEDS: PANTOPRAZOLE INJ 40 MG VIAL IVP (08:55)
[2024-02-12] MEDS: DOCUSATE SOD 100 MG CAPSULE PO ×2 (08:56→21:43)
[2024-02-12] MEDS: POTASSIUM CHLORIDE 20 mEq TABCR 40 MEQ PO (08:56)
[2024-02-12] MEDS: ZINC SULFATE 220 MG CAPSULE PO (08:56)
[2024-02-12] MEDS: amLODIPine BESYLATE 5 MG TABLET PO (08:56)
[2024-02-12] MEDS: ASCORBIC ACID 250 MG TABLET 500 MG PO ×2 (08:56→21:43)
[2024-02-12] MEDS: LOSARTAN POTASSIUM 25 MG TABLET 100 MG PO (09:03)
[2024-02-12] MEDS: FUROSEMIDE INJ 10 MG/ML VIAL 2 ML 20 MG IVP (09:03)
--- NOTE | 2024-02-12 11:03 | XR_ITS ---
Examination: CTA chest with intravenous contrast 2-D reconstructions 3-D reconstructions, vascular Date and time of exam: February 12, 2024 1342 hours INDICATIONS: Shortness of breath chest pain today clinical diagnosis pulmonary emboli CTDI: vol (mGy) 11.2 DLP: (mGycm) 260 Technique: Multiple axial sections of the thorax have been obtained. 3 mm slice thickness, from below the hemidiaphragms to above the apices of the lungs. Mediastinal and lung density settings have been obtained. 2-D sagittal and coronal reconstructions. 3-D angiographic renderings, 3-D volume renderings, 3D post processing, vascular maximum intensity projections obtained. Contrast administered is 100 cc Isovue-370 intravenous. Low dose protocols were performed. One or more of the following dose reduction techniques were used; automated exposure control, adjustment of the mA and/or KV according to patient size, use of iterative reconstruction technique. Findings: No thoracic aortic aneurysm dilatation or dissection Pulmonary artery segments are not enlarged No pulmonary artery emboli No paratracheal tracheobronchial or bronchopulmonary adenopathy Mild bibasilar pneumonia Minimal bilateral pleural disease Small foci of pneumonia also in both upper lobes Large retrocardiac gastric hernia Multiple liver cysts No gallstones spleen not enlarged No pancreatic mass Partial visualization abdominal aortic stent IMPRESSION: Negative for pulmonary artery emboli Bilateral pneumonia as above
--- NOTE | 2024-02-12 11:52 | ESPR_ITS ---
<Statement entered by Avery Jeter MD - 02/17/24 16:31> I reviewed above note and agree with findings and plans. I have also personally examined the patient with medicine team and went over assessment and plan with medical team including winter intern and resident physician. <Statement entered by Dick Jones DO - 02/12/24 19:37> Senior attestation: Patient was examined and case was reviewed with team including attending physician. Note reviewed, I agree with most of its contents and agree with the patient's care. CTA results do not indicate pulmonary embolism, has been able to wean down oxygen requirements from HFNC to oxymask. IV steroid given today prior to CTA and subsequently lowered patient's oxygen requirements, will order dexamethasone as patient is requiring oxygen support in setting of COVID infection. Dick Jones DO PGY-3 Documentation for date of: 02/12/24 Subjective Subjective Interval history: Absence of acute overnight events. Patient seen at bedside. Labs reviewed. She required higher doses of high flow nasal cannula flow rate increased to 12 and FiO2 is 40. WBC continues to downtrend. Pending CTA to evaluate for possible pulmonary embolism in setting of recent bedbound state after colectomy. Well's score of 9. Continue pain medications as needed. No bowel movement since 02/11/2024. Patient tolerated 25% of breakfast today on disphagia 2 diet. Exam Vital Signs Temp Pulse Resp BP Pulse Ox O2 Del Method O2 Flow Rate 96.6 F L 107 H 22 H 101/58 L 89 L High Flow Nasal Cannula 35 02/12/24 08:00 02/12/24 10:09 02/12/24 10:09 02/12/24 09:03 02/12/24 10:09 02/12/24 08:00 02/12/24 10:09 FiO2 40 02/12/24 10:09 Narrative Exam Constitutional: lethargic female; well-developed, well-nourished in no acute distress HEENT: NCAT, EOMI, reactive round pupils b/l, moist mucous membranes Lung: CTAB, no wheezing, b/l rales all lung lobes, saturating 97 % on high flow nasal cannula at FiO2 40. Heart: Regular S1S2, no murmurs, gallops, or rubs Abdomen: Non-tender. ++ Bowel sounds. Surgical kamar at midline and abdominal Binder. Extremities: No edema lower extremities bilaterally. 1+ dorsalis pedis pulses present b/l Neurologic: Generally alert and oriented to person and place. Skin: Warm, dry, no lesions or rashes noted Objective Labs 02/12/24 04:36 02/12/24 04:36 Labs: Laboratory Results - last 24 hr 02/11/24 02/11/24 02/12/24 16:05 17:20 04:36 WBC 13.9 H D RBC 3.00 L Hgb 9.5 L Hct 30.0 L MCV 100 MCH 31.7 MCHC 31.7 RDW Std Deviation 54.2 H Plt Count 226 D Neut % (Auto) 68 Lymph % (Auto) 6 L [place] % (Auto) 21 H Eos % (Auto) 1 Baso % (Auto) 0 Neut # (Auto) 9.4 H Lymph # (Auto) 0.8 L [place] # (Auto) 2.9 H Eos # (Auto) 0.1 Baso # (Auto) 0.0 Immature Gran # (Auto) 0.70 H Absolute Nucleated RBC 0.00 Immature Gran % 5 H Nucleated RBC % 0 Sodium 144 144 Potassium 3.5 3.6 Chloride 108 H 109 H Carbon Dioxide 26.5 26.7 Anion Gap 10 8 BUN 32 H 31 H Creatinine 1.0 1.2 Estim Creat Clear Calc 42.1 L 34.7 L eGFR 55 L 44 L BUN/Creatinine Ratio 32 H 26 H Glucose 115 H 97 Calculated Osmolality 294 293 Lactic Acid 1.6 Calcium 8.8 9.3 Corrected Calcium 9.8 Phosphorus 3.5 Magnesium 2.7 H Total Bilirubin 0.6 AST 37 H ALT 22 Alkaline Phosphatase 80 Troponin I < 0.020 Total Protein 6.2 Albumin 3.4 Globulin 2.8 Albumin/Globulin Ratio 1.2 Quality Measures Quality Measures none Advance care planning discussed with:: patient Assessment & Plan Assessment Current Active Medications: Generic Name Dose Route Start Last Admin Trade Name Freq PRN Reason Stop Dose Admin Acetaminophen 650 mg 02/10/24 12:39 02/10/24 15:16 Acetaminophen 325 Mg Tablet PO 03/11/24 12:38 650 mg Q6HR PRN Administration Pain and Fever >101 Acetylcysteine 2 ml 02/08/24 15:23 02/08/24 22:48 Acetylcysteine Itzel 20% 4 Ml Nebu INH 03/09/24 22:59 2 ml Q8HRRT PRN Administration Cough Or Congestion Albuterol/Ipratropium 3 ml 02/10/24 13:00 02/12/24 07:40 Albuterol/Ipratropium (Duoneb) Rt Itzel 3 Ml Nebu INH 03/11/24 12:59 3 ml Q6HRRT SAIRA Administration Amlodipine Besylate 5 mg 02/03/24 09:00 02/12/24 08:56 Amlodipine Besylate 5 Mg Tablet PO 03/04/24 08:59 5 mg QDAY SAIRA Administration Ascorbic Acid 500 mg 02/03/24 21:00 02/12/24 08:56 Ascorbic Acid 250 Mg Tablet PO 03/04/24 20:59 500 mg BID SAIRA Administration Atorvastatin Calcium 40 mg 02/03/24 21:00 02/11/24 21:35 Atorvastatin Calcium 20 Mg Tablet PO 03/04/24 20:59 40 mg 2100 SAIRA Administration Dextrose 25 ml 02/05/24 13:17 Dextrose 50%-Water Inj 50 Ml Syringe IV 03/06/24 13:16 Q15MIN PRN BG 50-70 responsive npo pt Dextrose 50 ml 02/05/24 13:17 Dextrose 50%-Water Inj 50 Ml Syringe IV 03/06/24 13:16 Q15MIN PRN BG <50 OR BG <70 & pt unresponsive Diphenhydramine HCl 25 mg 02/12/24 12:00 Diphenhydramine 25 Mg Capsule PO 02/12/24 12:01 X1 ONE Docusate Sodium 100 mg 02/03/24 21:00 02/12/24 08:56 Docusate Sod 100 Mg Capsule PO 03/04/24 20:59 100 mg BID SAIRA Administration Protocol Donepezil HCl 10 mg 02/03/24 21:00 02/11/24 21:35 Donepezil Hcl 5 Mg Tablet PO 03/04/24 20:59 10 mg QPM SAIRA Administration Furosemide 20 mg 02/09/24 13:45 02/12/24 09:03 Furosemide Inj 10 Mg/Ml Vial 2 Ml IVP 03/10/24 13:44 20 mg QDAY SAIRA Administration Gabapentin 400 mg 02/03/24 21:00 02/11/24 21:34 Gabapentin 100 Mg Capsule PO 03/04/24 20:59 400 mg QPM SAIRA Administration Glucagon 1 mg 02/05/24 13:17 Glucagon Inj 1 Mg Vial IM Q15MIN PRN BG <70, and no IV access Piperacillin/Tazobactam/Dextrose 3.375 gm in 50 mls @ 12.5 mls/hr 02/11/24 13:30 02/12/24 05:11 Zosyn IV 02/18/24 13:29 12.5 mls/hr Q8HR SAIRA Administration Protocol Insulin Human Regular 0 unit 02/05/24 18:00 02/12/24 11:39 Insulin Hum Regular 1 Unit/0.01 Ml (Per Unit) SC 03/06/24 17:59 Not Given Q6HR SAIRA Protocol Ketorolac Tromethamine 30 mg 02/11/24 12:48 02/11/24 15:40 Ketorolac Inj 30 Mg/Ml Vial IVP 02/16/24 12:47 30 mg X1 PRN Administration Pain 4-10 Labetalol HCl 10 mg 02/03/24 04:44 02/05/24 12:30 Labetalol Inj 5 Mg/Ml Vial 20 Ml IVP 03/04/24 04:43 10 mg Q4H PRN Administration Hypertension Levalbuterol HCl 1.25 mg 02/08/24 15:26 02/08/24 22:48 Levalbuterol Rt 1.25 Mg/0.5 Ml Nebu INH 03/09/24 22:59 1.25 mg Q8HRRT PRN Administration WHEEZING Losartan Potassium 100 mg 02/06/24 09:00 02/12/24 09:03 Losartan Potassium 25 Mg Tablet PO 03/07/24 08:59 100 mg QDAY SAIRA Administration Memantine 10 mg 02/03/24 09:00 02/12/24 08:55 Memantine Hcl 5 Mg Tablet PO 03/04/24 08:59 10 mg QAM SAIRA Administration Ondansetron HCl 4 mg 02/03/24 02:20 Ondansetron Inj 2 Mg/Ml Inj 2 Ml IV 03/04/24 02:19 Q6H PRN NAUSEA OR VOMITING Protocol Pantoprazole Sodium 40 mg 02/03/24 09:00 02/12/24 08:55 Pantoprazole Inj 40 Mg Vial IVP 03/04/24 08:59 40 mg QDAY SAIRA Administration Sodium Chloride 3 ml 02/08/24 15:09 Sodium Chloride Rt Itzel 0.9% 3 Ml Nebu INH 03/09/24 15:08 PRN PRN SOLN Zinc Sulfate 220 mg 02/04/24 09:00 02/12/24 08:56 Zinc Sulfate 220 Mg Capsule PO 03/05/24 08:59 220 mg QDAY SAIRA Administration Plan An 88-year-old female patient with significant medical history for abdominal aortic aneurysm s/p stents, HLD, HTN, GERD, asthma and dementia presented to the ED of [facility] on 02/01 for distended abdomen. Patient was admitted for pneumoperitoneum management, requiring exploratory laparotomy consisting of sigmoid colectomy with low pelvic anastomosis, right colectomy, and excision of pelvic mass. Currently on dysphagia diet and Ensure + high protein. Developed acute hypoxic respiratory failure secondary to pneumonia versus lung mass. #Acute hypoxic respiratory failure, decompensated Likely 2/2 #Possible Pulmonary embolism #COVID pneumonia #Fluid overloaded state Patient endorsed new onset productive cough x 2 days and was febrile, tachycardic, and tachypneic on presentation. Patient remains tachypneic and tachycardic, requiring transition from NC to hi flow. Saturating at 100% on3 L NC. She was recently admitted for septic pneumonia, discharged and failed on p.o. Augmentin oral antibiotics. Patient possibly acquired pneumonia from recent prior hospitalization. COVID +. Procalcitonin 0.64. Influenza negative, Cocci negative, strep A negative. Clinically patient presents euvolemic with no edema of lower extremities and mild bilateral rales lower lung lobes. Blood cultures neg x2. Well's criteria of 9: high risk of PE. Plan: ?CTA pending to rule out PE ? Supportive care, breathing treatments added ?monitor I & O's; [place] ? Oxygen as needed ? Tylenol suppository as needed for fever > 100.4 F #Pneumoperitoneum #s/p sigmoid colectomy with low pelvic anastomosis on02/03/24, POD 9 #s/p right colectomy and excision of pelvic mass on 02/03/24, POD 9 #Sepsis, resolved Secondary to above #Leukocytosis, improving Patient had distended abdomen after recent EGD and colonoscopy done in the hospital, subsequently found to have pneumoperitoneum. Abdomen pelvis imaging indicative of pneumoperitoneum, requiring surgical intervention. On 02/03/2024: exploratory laparotomy with sigmoid colectomy and low pelvic anastomosis, right colectomy, and excision of pelvic mass, 50cc of blood loss. Oxygen requirement increased from OxyMask to hi flow. she required extra lasix as she appeared to be fluid overloaded on 02/11/24. Chest x-ray showed mild heart failure, left base pneumonia with pleural fluid of the left lung. WBC downtrending,13.9. Per surgeon Dr. Ayala, will keep IV Zosyn on. Plan: - CT incentive spirometry - Follow repeat CXR - General Surgery on board, following recommendations - PT recommends SNF outpatient setting upon discharge; goal: bed to chair and ambulate ? Continue Zosyn IV 3.375 gm every 8 hours (Day 9 today) ? Follow-up CBC and CMP #Electrolyte abnormalities #Hyperchloremia-resolved #Hypokalemia 2/2 administration of PPN. Possible dilutional component with fluid by IV leading to hypokalemia. Potassium today- 3.6. Plan: -Replete as needed -goal: K+>4, Mag+ >2. #Macrocytic anemia Patient recently had surgical intervention which likely resulted in an imbalance of vitamin levels including folate and B12. Hemoglobin 9.5, hematocrit 30.0%, MCV 100. Plan: ?Follow-up CBC ?Will closely monitor. #History of dementia Patient takes donepezil and memantine. Plan: ?Continue donepezil and memantine #History of AAA status post stents (following Dr. Pro) #Incidental finding of liver and splenic lesions, on CT a/p Plan: ?Follow-up outpatient #RUDDY, most likely prerenal, resolved Health Maintenance Dispo: Patient admitted for pneumoperitoneum, general surgeon consulted, s/p exploratory laparotomy with R. colectomy, advance to full liquid diet. Developed AHRF 2/2 COVID Vs possible PE. pending CTA chest. Diet: Dysphagia 2 mechanically altered plus Ensure GI ppx: Protonix Code Status: Full code Discussed case with my attending Dr. Jeter and senior Robert, PGY-3. Thank you, Courtney Russell, PGY-2
[2024-02-12 12:32] LABS: Base Excess 5 (-3-3); HCO3 28 mEq/L (20-26); Inspired O2, VO2 Liters 15 L/min; O2 Saturation 99 % (91-98); PCO2 35 mmHg (32.0-48.0); PO2 101 mmHg (83-108); pH, Arterial 7.51 (7.35-7.45)
[2024-02-12 12:36] LABS: Allen Test Performed/OK; Puncture Site Left Radial
[2024-02-12] MEDS: HYDROCORTISONE SOD SUCC INJ 100 MG VIAL IV (12:58)
--- NOTE | 2024-02-12 19:19 | PD.IMPROG ---
Documentation for date of: 02/12/24 Subjective Subjective Interval history: Patient requiring higher FiO2 for oxygenation CTA chest is negative for any pulmonary embolism Bilateral pneumonia Positive bowel sounds Exam Vital Signs Temp Pulse Resp BP Pulse Ox O2 Del Method O2 Flow Rate 97.3 F 68 17 109/57 L 96 High Flow Nasal Cannula 12 02/12/24 16:00 02/12/24 16:00 02/12/24 16:00 02/12/24 16:00 02/12/24 16:00 02/12/24 16:00 02/12/24 16:00 FiO2 40 02/12/24 16:00 Objective Labs 02/12/24 04:36 02/12/24 04:36 Labs: Laboratory Results - last 24 hr 02/12/24 02/12/24 04:36 12:24 WBC 13.9 H D RBC 3.00 L Hgb 9.5 L Hct 30.0 L MCV 100 MCH 31.7 MCHC 31.7 RDW Std Deviation 54.2 H Plt Count 226 D Neut % (Auto) 68 Lymph % (Auto) 6 L [place] % (Auto) 21 H Eos % (Auto) 1 Baso % (Auto) 0 Neut # (Auto) 9.4 H Lymph # (Auto) 0.8 L [place] # (Auto) 2.9 H Eos # (Auto) 0.1 Baso # (Auto) 0.0 Immature Gran # (Auto) 0.70 H Absolute Nucleated RBC 0.00 Immature Gran % 5 H Nucleated RBC % 0 Puncture Site Left Radial ABG pH 7.51 H ABG pCO2 35 ABG pO2 101 ABG HCO3 28 H ABG O2 Saturation 99 H ABG Base Excess 5 H Oxygen Liter Flow 15 Sodium 144 Potassium 3.6 Chloride 109 H Carbon Dioxide 26.7 Anion Gap 8 BUN 31 H Creatinine 1.2 Estim Creat Clear Calc 34.7 L eGFR 44 L BUN/Creatinine Ratio 26 H Glucose 97 Calculated Osmolality 293 Calcium 9.3 Corrected Calcium 9.8 Phosphorus 3.5 Magnesium 2.7 H Total Bilirubin 0.6 AST 37 H ALT 22 Alkaline Phosphatase 80 Total Protein 6.2 Albumin 3.4 Globulin 2.8 Albumin/Globulin Ratio 1.2 Impressions Impression: # Status post right colectomy for necrosis and ischemia # Status post left colectomy with low-lying anastomosis # Hypoxemia in a patient with positive COVID as well as bilateral pneumonia Continue current management ABG Interpretation ABG results: 02/12/24 12:24 ABG pH 7.51 H ABG pCO2 35 ABG pO2 101 ABG HCO3 28 H ABG O2 Saturation 99 H ABG Base Excess 5 H Assessment & Plan A&P Narrative # After assessing the clinical picture clinical presentation reviewing the imaging study Findings of the CT scan showing air droplets in the gastric wall is a right hearing The only suspected perforation most likely is the left colon or may be another acute colonic event in the setting of her peripheral vascular disease Plan Continue broad-spectrum antibiotics Surgical exploration Discussed the case with Dr. Ayala Also spoke with her daughter at length Thank you once again for the opportunity to participate in the care of this patient Time Spent With Patient Time: Total time spent is greater than 50% in coordination of care (as documented) at patient's floor/unit and/or counseling patient:
[2024-02-12] MEDS: ACETAMINOPHEN 325 MG TABLET 650 MG PO (21:42)
[2024-02-12] MEDS: DONEPEZIL HCL 5 MG TABLET 10 MG PO (21:43)
[2024-02-12] MEDS: ATORVASTATIN CALCIUM 20 MG TABLET 40 MG PO (21:43)
[2024-02-12] MEDS: GABAPENTIN 100 MG CAPSULE 400 MG PO (21:43)
[2024-02-13] VITALS (13 sets, daily range): BP systolic 90–129; BP diastolic 53–93; PULSE 74–128; RESP 14–22; TEMP 36–36.6; O2SAT 92–100; BMI 30.6; BMI 12.0
[2024-02-13] MEDS: ALBUTEROL/IPRATROPIUM (Duoneb) RT SOL 3 ML NEBU INH ×4 (00:46→19:23)
[2024-02-13] MEDS: PIPER/TAZO 3.375 GM 3.375 GM/50 ML BAG IV ×3 (05:43→21:17)
[2024-02-13 05:57] LABS: Basophils % (Auto) 0 % (0-2.5); Eosinophils % (Auto) 0 % (0-10); Hematocrit 29.6 % (36.0-46.0); Hemoglobin 9.2 g/dL (12.0-16.0); Immature Granulocytes % (Auto) 3 % (0-0); Immature Granulocytes Auto 0.59 Thou/mm3 (0.00-0.00); Lymphocytes # (Auto) 0.8 Thou/mm3 (1.0-4.8); Lymphocytes % (Auto) 4 % (10-50); Mean Corpuscular HGB Conc 31.1 g/dl (31.0-37.0); Mean Corpuscular Hemoglobin 31.7 pg (25.0-35.0); Mean Corpuscular Volume 102 fL (80-100); Monocytes # (Auto) 2.6 Thou/mm3 (0.0-0.8); Monocytes % (Auto) 15 % (0-12); Neutrophils # (Auto) 13.6 Thou/mm3 (1.8-7.7); Neutrophils % (Auto) 77 % (37-80); Nucleated Red Blood Cell % 0 /100 WBC (0); Platelet Count 232 Thou/mm3 (140-440); RDW Standard Deviation 56.2 fL (36.4-46.3); White Blood Count 17.6 Thou/mm3 (3.6-11.0)
[2024-02-13 06:24] LABS: Alanine Aminotransferase 15 U/L (10-49); Albumin, Serum 3.5 gm/dL (3.4-4.8); Albumin/Globulin Ratio 1.2 (1.2-2.2); Alkaline Phosphatase 75 U/L (46-116); Anion Gap 10 (7-16); Aspartate Amino Transferase 46 U/L (0-34); BUN/Creatinine Ratio 24 Ratio (12-20); Bilirubin,Total 0.4 mg/dL (0.3-1.2); Blood Urea Nitrogen 31 mg/dL (9-23); Calcium 9.2 mg/dL (8.3-10.6); Calcium (Corrected) 9.6 mg/dL (8.5-10.1); Carbon Dioxide 28.5 mMol/L (20.0-31.0); Chloride 109 mMol/L (98-107); Creatinine (Component) 1.3 mg/dL (0.6-1.3); Globulin 2.9 gm/dL (2.3-3.5); Glucose 108 mg/dL (74-106); Magnesium 2.4 mg/dL (1.6-2.6); Osmolality,Calculated 299 (275-295); Phosphorous 4.4 mg/dL (2.4-5.1); Potassium 3.9 mMol/L (3.4-5.1); Sodium 147 mMol/L (136-145); Total Protein 6.4 gm/dL (5.7-8.2); eGFR 40 See Note
--- NOTE | 2024-02-13 06:44 | ESPR_ITS ---
Documentation for date of: 02/13/24 Subjective Subjective Narrative: Patient is seen and examined. She is resting comfortably, she appears to be more alert and awake this morning. She is tolerating diet and continues to have bowel movement. She underwent CTA of her chest yesterday that showed bilateral pneumonia no evidence of PE Exam Vital Signs Temp Pulse Resp BP Pulse Ox O2 Del Method O2 Flow Rate 97.3 F 74 15 90/53 L 97 High Flow Nasal Cannula 3 02/13/24 04:00 02/13/24 04:00 02/13/24 04:00 02/13/24 04:00 02/13/24 04:00 02/13/24 04:00 02/13/24 04:00 FiO2 40 02/13/24 04:00 Constitutional Constitutional: no acute distress Routine Abdominal Exam Abdominal: Present soft, normoactive bowel sounds and tenderness (Very minimal mina-incisional tenderness. Incision is clean, dry and intact); Absent d istended Assessment & Plan Assessment Additional comments: Postop day #10 status post sigmoid colectomy, right colectomy and excision of pelvic mass. Plan Diet as tolerated. Once her pulmonary issues improves she can be discharged from surgical standpoint Procedures Procedures Exploratory laparotomy, sigmoid colectomy with low pelvic anastomosis Right colectomy Excision of pelvic mass
[2024-02-13] MEDS: DOCUSATE SOD 100 MG CAPSULE PO ×2 (09:40→20:49)
[2024-02-13] MEDS: ZINC SULFATE 220 MG CAPSULE PO (09:40)
[2024-02-13] MEDS: ASCORBIC ACID 250 MG TABLET 500 MG PO ×2 (09:40→20:49)
[2024-02-13] MEDS: dexAMETHasone 6 MG TABLET PO (09:41)
[2024-02-13] MEDS: LOSARTAN POTASSIUM 25 MG TABLET 100 MG PO (09:41)
[2024-02-13] MEDS: PANTOPRAZOLE INJ 40 MG VIAL IVP (09:42)
[2024-02-13] MEDS: MEMANTINE HCL 5 MG TABLET 10 MG PO (09:42)
[2024-02-13] MEDS: FUROSEMIDE INJ 10 MG/ML VIAL 2 ML 20 MG IVP (09:43)
--- NOTE | 2024-02-13 11:38 | ESPR_ITS ---
<Statement entered by Avery Jeter MD - 02/17/24 16:32> I reviewed above note and agree with findings and plans. I have also personally examined the patient with medicine team and went over assessment and plan with medical team including diversity intern and resident physician. <Statement entered by Dick Jones DO - 02/13/24 19:33> Senior attestation: Patient was examined and case was reviewed with team including attending physician. Note reviewed, I agree with most of its contents and agree with the patient's care. Oxygen requirements have continued to improve, will continue dexamethasone tablets. Will hold lasix and losartan, start gentle D5w fluids given concerns of dehydration. Dcik Jones DO PGY-3 Documentation for date of: 02/13/24 Subjective Subjective Interval history: Patient is seen at bedside this morning. She was evaluated. Labs reviewed. Absence of acute overnight events. Patient appears lethargic and complains of lower back pain. She attributes her pain to not getting up. Patient appears relatively clear on auscultation, improved from days prior. Diminished breath sound lower lung lobes bilaterally. Physical therapy was ordered urgently for patient. Priority will be placed on mobilize patient. Will continue IV Zosyn for possible GI infection and current pneumonia. Dexamethasone 6 mg p.o. daily and oxygen as needed. Exam Vital Signs Temp Pulse Resp BP Pulse Ox O2 Del Method O2 Flow Rate 97.8 F 82 15 104/55 L 100 Nasal Cannula 3 02/13/24 08:00 02/13/24 09:43 02/13/24 08:00 02/13/24 09:43 02/13/24 08:00 02/13/24 08:00 02/13/24 08:00 FiO2 40 02/13/24 04:00 Narrative Exam Constitutional: lethargic female; well-developed, well-nourished in no acute distress HEENT: NCAT, EOMI, reactive round pupils b/l, moist mucous membranes Lung: CTAB, no wheezing, b/l rales all lung lobes, saturating 100% on high flow nasal cannula at FiO2 40. Heart: Regular S1S2, no murmurs, gallops, or rubs Abdomen: Non-tender. Surgical kamar clean at midline and abdominal Binder. Extremities: No edema lower extremities bilaterally. 1+ dorsalis pedis pulses present b/l Neurologic: Generally alert and oriented to person and place. Skin: Warm, dry, no lesions or rashes noted Objective Labs 02/15/24 04:56 02/15/24 04:56 Labs: Laboratory Results - last 24 hr 02/12/24 02/13/24 12:24 05:20 WBC 17.6 H RBC 2.90 L Hgb 9.2 L Hct 29.6 L MCV 102 H MCH 31.7 MCHC 31.1 RDW Std Deviation 56.2 H Plt Count 232 Neut % (Auto) 77 Lymph % (Auto) 4 L [place] % (Auto) 15 H Eos % (Auto) 0 Baso % (Auto) 0 Neut # (Auto) 13.6 H Lymph # (Auto) 0.8 L [place] # (Auto) 2.6 H Eos # (Auto) 0.0 Baso # (Auto) 0.0 Immature Gran # (Auto) 0.59 H Absolute Nucleated RBC 0.00 Immature Gran % 3 H Nucleated RBC % 0 Puncture Site Left Radial ABG pH 7.51 H ABG pCO2 35 ABG pO2 101 ABG HCO3 28 H ABG O2 Saturation 99 H ABG Base Excess 5 H Oxygen Liter Flow 15 Sodium 147 H Potassium 3.9 Chloride 109 H Carbon Dioxide 28.5 Anion Gap 10 BUN 31 H Creatinine 1.3 Estim Creat Clear Calc 32.0 L eGFR 40 L BUN/Creatinine Ratio 24 H Glucose 108 H Calculated Osmolality 299 H Calcium 9.2 Corrected Calcium 9.6 Phosphorus 4.4 Magnesium 2.4 Total Bilirubin 0.4 AST 46 H ALT 15 Alkaline Phosphatase 75 Total Protein 6.4 Albumin 3.5 Globulin 2.9 Albumin/Globulin Ratio 1.2 ABG Interpretation ABG results: 02/12/24 12:24 ABG pH 7.51 H ABG pCO2 35 ABG pO2 101 ABG HCO3 28 H ABG O2 Saturation 99 H ABG Base Excess 5 H Quality Measures Quality Measures none Advance care planning discussed with:: patient Assessment & Plan Assessment Current Active Medications: Generic Name Dose Route Start Last Admin Trade Name Freq PRN Reason Stop Dose Admin Acetaminophen 650 mg 02/10/24 12:39 02/12/24 21:42 Acetaminophen 325 Mg Tablet PO 03/11/24 12:38 650 mg Q6HR PRN Administration Pain and Fever >101 Acetylcysteine 2 ml 02/08/24 15:23 02/08/24 22:48 Acetylcysteine Itzel 20% 4 Ml Nebu INH 03/09/24 22:59 2 ml Q8HRRT PRN Administration Cough Or Congestion Albuterol/Ipratropium 3 ml 02/10/24 13:00 02/13/24 07:10 Albuterol/Ipratropium (Duoneb) Rt Itzel 3 Ml Nebu INH 03/11/24 12:59 3 ml Q6HRRT SAIRA Administration Amlodipine Besylate 5 mg 02/03/24 09:00 02/13/24 09:30 Amlodipine Besylate 5 Mg Tablet PO 03/04/24 08:59 Not Given QDAY SAIRA Ascorbic Acid 500 mg 02/03/24 21:00 02/13/24 09:40 Ascorbic Acid 250 Mg Tablet PO 03/04/24 20:59 500 mg BID SAIRA Administration Atorvastatin Calcium 40 mg 02/03/24 21:00 02/12/24 21:43 Atorvastatin Calcium 20 Mg Tablet PO 03/04/24 20:59 40 mg 2100 SAIRA Administration Dexamethasone 6 mg 02/13/24 09:00 02/13/24 09:41 Dexamethasone 6 Mg Tablet PO 02/17/24 08:59 6 mg QDAY SAIRA Administration Protocol Dextrose 25 ml 02/05/24 13:17 Dextrose 50%-Water Inj 50 Ml Syringe IV 03/06/24 13:16 Q15MIN PRN BG 50-70 responsive npo pt Dextrose 50 ml 02/05/24 13:17 Dextrose 50%-Water Inj 50 Ml Syringe IV 03/06/24 13:16 Q15MIN PRN BG <50 OR BG <70 & pt unresponsive Docusate Sodium 100 mg 02/03/24 21:00 02/13/24 09:40 Docusate Sod 100 Mg Capsule PO 03/04/24 20:59 100 mg BID SAIRA Administration Protocol Donepezil HCl 10 mg 02/03/24 21:00 02/12/24 21:43 Donepezil Hcl 5 Mg Tablet PO 03/04/24 20:59 10 mg QPM SAIRA Administration Gabapentin 400 mg 02/03/24 21:00 02/12/24 21:43 Gabapentin 100 Mg Capsule PO 03/04/24 20:59 400 mg QPM SAIRA Administration Glucagon 1 mg 02/05/24 13:17 Glucagon Inj 1 Mg Vial IM Q15MIN PRN BG <70, and no IV access Piperacillin/Tazobactam/Dextrose 3.375 gm in 50 mls @ 12.5 mls/hr 02/11/24 13:30 02/13/24 05:43 Zosyn IV 02/18/24 13:29 12.5 mls/hr Q8HR SAIRA Administration Protocol Dextrose 1,000 mls @ 75 mls/hr 02/13/24 11:15 D5w IV 02/14/24 11:14 .[id number] SAIRA Insulin Human Regular 0 unit 02/05/24 18:00 02/13/24 05:43 Insulin Hum Regular 1 Unit/0.01 Ml (Per Unit) SC 03/06/24 17:59 Not Given Q6HR SAIRA Protocol Ketorolac Tromethamine 30 mg 02/11/24 12:48 02/11/24 15:40 Ketorolac Inj 30 Mg/Ml Vial IVP 02/16/24 12:47 30 mg X1 PRN Administration Pain 4-10 Labetalol HCl 10 mg 02/03/24 04:44 02/05/24 12:30 Labetalol Inj 5 Mg/Ml Vial 20 Ml IVP 03/04/24 04:43 10 mg Q4H PRN Administration Hypertension Levalbuterol HCl 1.25 mg 02/08/24 15:26 02/08/24 22:48 Levalbuterol Rt 1.25 Mg/0.5 Ml Nebu INH 03/09/24 22:59 1.25 mg Q8HRRT PRN Administration WHEEZING Memantine 10 mg 02/03/24 09:00 02/13/24 09:42 Memantine Hcl 5 Mg Tablet PO 03/04/24 08:59 10 mg QAM SAIRA Administration Ondansetron HCl 4 mg 02/03/24 02:20 Ondansetron Inj 2 Mg/Ml Inj 2 Ml IV 03/04/24 02:19 Q6H PRN NAUSEA OR VOMITING Protocol Pantoprazole Sodium 40 mg 02/03/24 09:00 02/13/24 09:42 Pantoprazole Inj 40 Mg Vial IVP 03/04/24 08:59 40 mg QDAY SAIRA Administration Sodium Chloride 3 ml 02/08/24 15:09 Sodium Chloride Rt Itzel 0.9% 3 Ml Nebu INH 03/09/24 15:08 PRN PRN SOLN Zinc Sulfate 220 mg 02/04/24 09:00 02/13/24 09:40 Zinc Sulfate 220 Mg Capsule PO 03/05/24 08:59 220 mg QDAY SAIRA Administration Plan An 88-year-old female patient with significant medical history for abdominal aortic aneurysm s/p stents, HLD, HTN, GERD, asthma and dementia presented to the ED of [facility] on 02/01 for distended abdomen. Patient was admitted for pneumoperitoneum management, requiring exploratory laparotomy consisting of sigmoid colectomy with low pelvic anastomosis, right colectomy, and excision of pelvic mass. Currently on dysphagia diet and Ensure + high protein. Developed acute hypoxic respiratory failure secondary to pneumonia versus lung mass. #Acute hypoxic respiratory failure, stable Likely 2/2 #COVID pneumonia #Fluid overloaded state Patient endorsed productive cough x 2 days and was febrile, tachycardic, and tachypneic on presentation. Patient's tachypneic and tachycardia resolved on hi flow and with steroid. Saturating at 100% on3 L hi flow Nc. She was recently admitted for septic pneumonia, discharged and failed on p.o. Augmentin oral antibiotics. Patient possibly acquired pneumonia from recent prior hospitalization, while living in SNF also placed her at risk for pneumonia. COVID +. Procalcitonin 0.64. Influenza negative, Cocci negative, strep A negative. Clinically patient presents with no edema of lower extremities. Lungs appear clearer on auscultation w/diminished breath sound lower lung lobes bilaterally. Upper extremities appear edematous b/l, 1+ edema. Blood cultures neg x2. Well's criteria of 9: high risk of PE. CTA negative, Bilateral pneumonia and pleural effusion of right lung noted. Plan: ? Supportive care with breathing treatments -Dexamethasone 6mg po daily and oxygen as needed -monitor I & O's; [place] - Oxygen as needed - Tylenol as needed for fever > 100.4 F - wean off hi flow as tolerated #Pneumoperitoneum #s/p sigmoid colectomy with low pelvic anastomosis on02/03/24, POD 10 #s/p right colectomy and excision of pelvic mass on 02/03/24, POD 10 #Leukocytosis, improving Patient had distended abdomen after recent EGD and colonoscopy done in the hospital, subsequently found to have pneumoperitoneum. Abdomen pelvis imaging indicative of pneumoperitoneum, requiring surgical intervention. On 02/03/2024: exploratory laparotomy with sigmoid colectomy and low pelvic anastomosis, right colectomy, and excision of pelvic mass, 50cc of blood loss. Oxygen requirement increased from OxyMask to hi flow. She required extra lasix as she appeared to be fluid overloaded on 02/11/24. Chest x-ray showed mild heart failure, left base pneumonia with pleural fluid of the left lung. WBC 17.6. Patient has not tolerated diet. Last meal eaten on 02/12/24. Plan: - CT incentive spirometry - Pending diet to be tolerated and - General Surgery on board, recommends can D/c IV zosyn from surgery perspective. - PT recommends SNF outpatient setting upon discharge; goal: bed to chair and ambulate ? Continue Zosyn IV 3.375 gm every 8 hours (Day 10 today) ? Follow-up CBC and CMP # Hypernatremia Sodium up trended from 144-147. Osmolality 299. Possible component of dehydration leading to hypernatremia. Patient has not had a full diet over the past day and a half. She was provided with supplements which she is also not been successful at consuming. She presents with generalized weakness and lower back pain. She appears dehydrated with dry mucous membranes. Free water deficit: 3 L. Plan: -D5W at 75 cc/hr -Encourage oral intake -Continue supplements and dysphagia diet. #Macrocytic anemia Patient recently had surgical intervention which likely resulted in an imbalance of vitamin levels including folate and B12. Hemoglobin 9.5, hematocrit 30.0%, MCV 100. Plan: ?Follow-up CBC ?Will closely monitor. #History of dementia Patient takes donepezil and memantine. Plan: ?Continue donepezil and memantine #History of AAA status post stents (following Dr. Pro) #Incidental finding of liver and splenic lesions, on CT a/p Plan: ?Follow-up outpatient #RUDDY, most likely prerenal, resolved #Pulmonary embolism, ruled out #Sepsis, resolved #Hypokalemia- resolved Health Maintenance Dispo: Patient admitted for pneumoperitoneum, general surgeon consulted, s/p exploratory laparotomy with R. colectomy, on full . Developed AHRF 2/2 COVID pna. pending diet tolerated and wean off hi flow. Diet: Dysphagia 2 mechanically altered plus Ensure GI ppx: Protonix Code Status: Full code Discussed case with my attending Dr. Jeter and senior Robert, PGY-3. Thank you, Courtney Russell, PGY-2
[2024-02-13] MEDS: INSULIN HUM REGULAR 1 UNIT/0.01 ML (PER UNIT) SC ×2 (12:24→17:58)
[2024-02-13] MEDS: DEXTROSE 5%-WATER 1,000 ML 75 ML IV (12:24)
--- NOTE | 2024-02-13 19:10 | ESPR_ITS ---
Documentation for date of: 02/13/24 Subjective Subjective Interval history: Alert oriented Passing gas and having bowel movement No abdominal distention Exam Vital Signs Temp Pulse Resp BP Pulse Ox O2 Del Method O2 Flow Rate 97.8 F 98 19 128/73 97 Nasal Cannula 3 02/13/24 16:00 02/13/24 16:00 02/13/24 16:00 02/13/24 16:00 02/13/24 16:00 02/13/24 16:00 02/13/24 16:00 FiO2 40 02/13/24 04:00 Objective Labs 02/13/24 05:20 02/13/24 05:20 Labs: Laboratory Results - last 24 hr 02/13/24 05:20 WBC 17.6 H RBC 2.90 L Hgb 9.2 L Hct 29.6 L MCV 102 H MCH 31.7 MCHC 31.1 RDW Std Deviation 56.2 H Plt Count 232 Neut % (Auto) 77 Lymph % (Auto) 4 L [place] % (Auto) 15 H Eos % (Auto) 0 Baso % (Auto) 0 Neut # (Auto) 13.6 H Lymph # (Auto) 0.8 L [place] # (Auto) 2.6 H Eos # (Auto) 0.0 Baso # (Auto) 0.0 Immature Gran # (Auto) 0.59 H Absolute Nucleated RBC 0.00 Immature Gran % 3 H Nucleated RBC % 0 Sodium 147 H Potassium 3.9 Chloride 109 H Carbon Dioxide 28.5 Anion Gap 10 BUN 31 H Creatinine 1.3 Estim Creat Clear Calc 32.0 L eGFR 40 L BUN/Creatinine Ratio 24 H Glucose 108 H Calculated Osmolality 299 H Calcium 9.2 Corrected Calcium 9.6 Phosphorus 4.4 Magnesium 2.4 Total Bilirubin 0.4 AST 46 H ALT 15 Alkaline Phosphatase 75 Total Protein 6.4 Albumin 3.5 Globulin 2.9 Albumin/Globulin Ratio 1.2 Impressions Impression: # Status post right colectomy for ischemia # Status post sigmoid colectomy and lower leg anastomosis # COVID-positive Continue current management ABG Interpretation ABG results: 02/12/24 12:24 ABG pH 7.51 H ABG pCO2 35 ABG pO2 101 ABG HCO3 28 H ABG O2 Saturation 99 H ABG Base Excess 5 H Assessment & Plan A&P Narrative # After assessing the clinical picture clinical presentation reviewing the imaging study Findings of the CT scan showing air droplets in the gastric wall is a right hearing The only suspected perforation most likely is the left colon or may be another acute colonic event in the setting of her peripheral vascular disease Plan Continue broad-spectrum antibiotics Surgical exploration Discussed the case with Dr. Ayala Also spoke with her daughter at length Thank you once again for the opportunity to participate in the care of this patient Time Spent With Patient Time: Total time spent is greater than 50% in coordination of care (as documented) at patient's floor/unit and/or counseling patient:
[2024-02-13] MEDS: GABAPENTIN 100 MG CAPSULE 400 MG PO (20:49)
[2024-02-13] MEDS: ATORVASTATIN CALCIUM 20 MG TABLET 40 MG PO (20:49)
[2024-02-13] MEDS: DONEPEZIL HCL 5 MG TABLET 10 MG PO (20:50)
[2024-02-14] VITALS (11 sets, daily range): BP systolic 100–121; BP diastolic 51–74; PULSE 73–89; RESP 16–22; TEMP 36–36.4; O2SAT 92–100; BMI 30.6
[2024-02-14] MEDS: ALBUTEROL/IPRATROPIUM (Duoneb) RT SOL 3 ML NEBU INH ×3 (01:46→19:55)
[2024-02-14] MEDS: DEXTROSE 5%-WATER 1,000 ML 75 ML IV (02:00)
[2024-02-14] MEDS: PIPER/TAZO 3.375 GM 3.375 GM/50 ML BAG IV ×3 (05:14→22:30)
[2024-02-14 05:47] LABS: Basophils % (Auto) 0 % (0-2.5); Eosinophils % (Auto) 0 % (0-10); Hematocrit 24.8 % (36.0-46.0); Immature Granulocytes % (Auto) 4 % (0-0); Immature Granulocytes Auto 0.71 Thou/mm3 (0.00-0.00); Lymphocytes # (Auto) 0.8 Thou/mm3 (1.0-4.8); Lymphocytes % (Auto) 5 % (10-50); Mean Corpuscular HGB Conc 31.9 g/dl (31.0-37.0); Mean Corpuscular Hemoglobin 32.1 pg (25.0-35.0); Mean Corpuscular Volume 101 fL (80-100); Monocytes # (Auto) 1.9 Thou/mm3 (0.0-0.8); Monocytes % (Auto) 11 % (0-12); Neutrophils # (Auto) 13.9 Thou/mm3 (1.8-7.7); Neutrophils % (Auto) 80 % (37-80); Nucleated Red Blood Cell % 0 /100 WBC (0); Platelet Count 217 Thou/mm3 (140-440); RDW Standard Deviation 54.9 fL (36.4-46.3); Red Blood Count 2.46 Miln/mm3 (4.00-5.20); White Blood Count 17.3 Thou/mm3 (3.6-11.0)
[2024-02-14 05:52] LABS: Hemoglobin 7.9 g/dL (12.0-16.0)
[2024-02-14 06:14] LABS: Alanine Aminotransferase 21 U/L (10-49); Albumin, Serum 3.2 gm/dL (3.4-4.8); Albumin/Globulin Ratio 1.2 (1.2-2.2); Alkaline Phosphatase 66 U/L (46-116); Anion Gap 8 (7-16); Aspartate Amino Transferase 42 U/L (0-34); BUN/Creatinine Ratio 26 Ratio (12-20); Bilirubin,Total 0.4 mg/dL (0.3-1.2); Blood Urea Nitrogen 31 mg/dL (9-23); Calcium 8.7 mg/dL (8.3-10.6); Calcium (Corrected) 9.3 mg/dL (8.5-10.1); Carbon Dioxide 27.9 mMol/L (20.0-31.0); Chloride 104 mMol/L (98-107); Creatinine (Component) 1.2 mg/dL (0.6-1.3); Estimated Creatinine Clearance 34.7 mL/min (>60); Globulin 2.7 gm/dL (2.3-3.5); Glucose 124 mg/dL (74-106); Osmolality,Calculated 286 (275-295); Phosphorous 3.3 mg/dL (2.4-5.1); Potassium 3.5 mMol/L (3.4-5.1); Sodium 140 mMol/L (136-145); Total Protein 5.9 gm/dL (5.7-8.2); eGFR 44 See Note
[2024-02-14] MEDS: DOCUSATE SOD 100 MG CAPSULE PO ×2 (09:03→20:39)
[2024-02-14] MEDS: MEMANTINE HCL 5 MG TABLET 10 MG PO (09:04)
[2024-02-14] MEDS: ASCORBIC ACID 250 MG TABLET 500 MG PO ×2 (09:04→20:39)
[2024-02-14] MEDS: amLODIPine BESYLATE 5 MG TABLET PO (09:04)
[2024-02-14] MEDS: dexAMETHasone 6 MG TABLET PO (09:04)
[2024-02-14] MEDS: PANTOPRAZOLE INJ 40 MG VIAL IVP ×2 (09:04→20:39)
[2024-02-14] MEDS: ZINC SULFATE 220 MG CAPSULE PO (09:05)
--- NOTE | 2024-02-14 11:09 | ESPR_ITS ---
<Statement entered by Avery Jeter MD - 02/17/24 16:33> I reviewed above note and agree with findings and plans. I have also personally examined the patient with medicine team and went over assessment and plan with medical team including undergraduate internship and resident physician. <Statement entered by Dick Jones DO - 02/14/24 14:25> Senior attestation: Patient was examined and case was reviewed with team including attending physician. Note reviewed, I agree with most of its contents and agree with the patient's care. Will switch PPI to BID continue dexamethasone for 1 more day, IV zosyn for today, anticipate discharge in 24 hours pending clinical stability. Dick Jones DO PGY-3 Documentation for date of: 02/14/24 Subjective Subjective Interval history: Patient is seen at bedside this morning. No overnight events Patient is alert oriented x 3, complaining of some lower back pain. Patient is saturating well on nasal cannula. Hemoglobin dropped from 9.2-7.9. Will change on Protonix 40 mg twice daily Will consider discontinuing dexamethasone in a.m. if respiratory status stable. Will continue IV Zosyn today. Exam Vital Signs Temp Pulse Resp BP Pulse Ox O2 Del Method O2 Flow Rate 96.8 F 80 16 121/74 98 Nasal Cannula 3 02/14/24 08:00 02/14/24 09:04 02/14/24 08:00 02/14/24 09:04 02/14/24 08:00 02/14/24 08:00 02/14/24 08:00 FiO2 40 02/14/24 04:00 Narrative Exam Constitutional: lethargic female; well-developed, well-nourished in no acute distress HEENT: NCAT, EOMI, reactive round pupils b/l, moist mucous membranes Lung: CTAB, no wheezing, b/l rales all lung lobes, saturating in 90s on 3 L nasal cannula. Heart: Regular S1S2, no murmurs, gallops, or rubs Abdomen: Non-tender. Surgical kamar clean at midline and abdominal Binder. Extremities: No edema lower extremities bilaterally. 1+ dorsalis pedis pulses present b/l Neurologic: Generally alert and oriented to person and place. Skin: Warm, dry, no lesions or rashes noted Objective Labs 02/14/24 04:48 02/14/24 04:48 Labs: Laboratory Results - last 24 hr 02/14/24 04:48 WBC 17.3 H RBC 2.46 L Hgb 7.9 L Hct 24.8 L MCV 101 H MCH 32.1 MCHC 31.9 RDW Std Deviation 54.9 H Plt Count 217 Neut % (Auto) 80 Lymph % (Auto) 5 L [place] % (Auto) 11 Eos % (Auto) 0 Baso % (Auto) 0 Neut # (Auto) 13.9 H Lymph # (Auto) 0.8 L [place] # (Auto) 1.9 H Eos # (Auto) 0.0 Baso # (Auto) 0.0 Immature Gran # (Auto) 0.71 H Absolute Nucleated RBC 0.00 Immature Gran % 4 H Nucleated RBC % 0 Sodium 140 Potassium 3.5 Chloride 104 Carbon Dioxide 27.9 Anion Gap 8 BUN 31 H Creatinine 1.2 Estim Creat Clear Calc 34.7 L eGFR 44 L BUN/Creatinine Ratio 26 H Glucose 124 H Calculated Osmolality 286 Calcium 8.7 Corrected Calcium 9.3 Phosphorus 3.3 Magnesium 2.0 Total Bilirubin 0.4 AST 42 H ALT 21 Alkaline Phosphatase 66 Total Protein 5.9 Albumin 3.2 L Globulin 2.7 Albumin/Globulin Ratio 1.2 ABG Interpretation ABG results: 02/12/24 12:24 ABG pH 7.51 H ABG pCO2 35 ABG pO2 101 ABG HCO3 28 H ABG O2 Saturation 99 H ABG Base Excess 5 H Quality Measures Quality Measures none Advance care planning discussed with:: patient Assessment & Plan Assessment Current Active Medications: Generic Name Dose Route Start Last Admin Trade Name Freq PRN Reason Stop Dose Admin Acetaminophen 650 mg 02/10/24 12:39 02/12/24 21:42 Acetaminophen 325 Mg Tablet PO 03/11/24 12:38 650 mg Q6HR PRN Administration Pain and Fever >101 Acetylcysteine 2 ml 02/08/24 15:23 02/08/24 22:48 Acetylcysteine Itzel 20% 4 Ml Nebu INH 03/09/24 22:59 2 ml Q8HRRT PRN Administration Cough Or Congestion Albuterol/Ipratropium 3 ml 02/10/24 13:00 02/14/24 01:46 Albuterol/Ipratropium (Duoneb) Rt Itzel 3 Ml Nebu INH 03/11/24 12:59 3 ml Q6HRRT SAIRA Administration Amlodipine Besylate 5 mg 02/03/24 09:00 02/14/24 09:04 Amlodipine Besylate 5 Mg Tablet PO 03/04/24 08:59 5 mg QDAY SAIRA Administration Ascorbic Acid 500 mg 02/03/24 21:00 02/14/24 09:04 Ascorbic Acid 250 Mg Tablet PO 03/04/24 20:59 500 mg BID SAIRA Administration Atorvastatin Calcium 40 mg 02/03/24 21:00 02/13/24 20:49 Atorvastatin Calcium 20 Mg Tablet PO 03/04/24 20:59 40 mg 2100 SAIRA Administration Dexamethasone 6 mg 02/13/24 09:00 02/14/24 09:04 Dexamethasone 6 Mg Tablet PO 02/17/24 08:59 6 mg QDAY SAIRA Administration Protocol Dextrose 25 ml 02/05/24 13:17 Dextrose 50%-Water Inj 50 Ml Syringe IV 03/06/24 13:16 Q15MIN PRN BG 50-70 responsive npo pt Dextrose 50 ml 02/05/24 13:17 Dextrose 50%-Water Inj 50 Ml Syringe IV 03/06/24 13:16 Q15MIN PRN BG <50 OR BG <70 & pt unresponsive Docusate Sodium 100 mg 02/03/24 21:00 02/14/24 09:03 Docusate Sod 100 Mg Capsule PO 03/04/24 20:59 100 mg BID SAIRA Administration Protocol Donepezil HCl 10 mg 02/03/24 21:00 02/13/24 20:50 Donepezil Hcl 5 Mg Tablet PO 03/04/24 20:59 10 mg QPM SAIRA Administration Gabapentin 400 mg 02/03/24 21:00 02/13/24 20:49 Gabapentin 100 Mg Capsule PO 03/04/24 20:59 400 mg QPM SAIRA Administration Glucagon 1 mg 02/05/24 13:17 Glucagon Inj 1 Mg Vial IM Q15MIN PRN BG <70, and no IV access Piperacillin/Tazobactam/Dextrose 3.375 gm in 50 mls @ 12.5 mls/hr 02/11/24 13:30 02/14/24 05:14 Zosyn IV 02/18/24 13:29 12.5 mls/hr Q8HR SAIRA Administration Protocol Dextrose 1,000 mls @ 75 mls/hr 02/13/24 11:15 02/14/24 02:00 D5w IV 02/14/24 11:14 75 mls/hr .[id number] SAIRA Administration Insulin Human Regular 0 unit 02/05/24 18:00 02/14/24 05:19 Insulin Hum Regular 1 Unit/0.01 Ml (Per Unit) SC 03/06/24 17:59 Not Given Q6HR SAIRA Protocol Ketorolac Tromethamine 30 mg 02/11/24 12:48 02/11/24 15:40 Ketorolac Inj 30 Mg/Ml Vial IVP 02/16/24 12:47 30 mg X1 PRN Administration Pain 4-10 Labetalol HCl 10 mg 02/03/24 04:44 02/05/24 12:30 Labetalol Inj 5 Mg/Ml Vial 20 Ml IVP 03/04/24 04:43 10 mg Q4H PRN Administration Hypertension Levalbuterol HCl 1.25 mg 02/08/24 15:26 02/08/24 22:48 Levalbuterol Rt 1.25 Mg/0.5 Ml Nebu INH 03/09/24 22:59 1.25 mg Q8HRRT PRN Administration WHEEZING Memantine 10 mg 02/03/24 09:00 02/14/24 09:04 Memantine Hcl 5 Mg Tablet PO 03/04/24 08:59 10 mg QAM SAIRA Administration Ondansetron HCl 4 mg 02/03/24 02:20 Ondansetron Inj 2 Mg/Ml Inj 2 Ml IV 03/04/24 02:19 Q6H PRN NAUSEA OR VOMITING Protocol Pantoprazole Sodium 40 mg 02/14/24 21:00 Pantoprazole Inj 40 Mg Vial IVP 03/15/24 20:59 BID SAIRA Sodium Chloride 3 ml 02/08/24 15:09 Sodium Chloride Rt Itzel 0.9% 3 Ml Nebu INH 03/09/24 15:08 PRN PRN SOLN Zinc Sulfate 220 mg 02/04/24 09:00 02/14/24 09:05 Zinc Sulfate 220 Mg Capsule PO 03/05/24 08:59 220 mg QDAY SAIRA Administration Plan An 88-year-old female patient with significant medical history for abdominal aortic aneurysm s/p stents, HLD, HTN, GERD, asthma and dementia presented to the ED of [facility] on 02/01 for distended abdomen. Patient was admitted for pneumoperitoneum management, requiring exploratory laparotomy consisting of sigmoid colectomy with low pelvic anastomosis, right colectomy, and excision of pelvic mass. Currently on dysphagia diet and Ensure, high protein. Developed acute hypoxic respiratory failure secondary to pneumonia versus lung mass. #Acute hypoxic respiratory failure, stable Likely 2/2 #COVID pneumonia Patient endorsed productive cough x 2 days and was febrile, tachycardic, and tachypneic on presentation. Patient's tachypneic and tachycardia resolved on hi flow and with steroid. Patient was on high flow nasal cannula yesterday, saturating well on 3 L nasal cannula She was recently admitted for septic pneumonia, discharged and failed on p.o. Augmentin oral antibiotics. Patient possibly acquired pneumonia from recent prior hospitalization, while living in SNF also placed her at risk for pneumonia. COVID +. Procalcitonin 0.64. Influenza negative, Cocci negative, strep A negative. Clinically patient presents with no edema of lower extremities. Lungs appear clearer on auscultation w/diminished breath sound lower lung lobes bilaterally. Upper extremities appear edematous b/l, 1+ edema. Blood cultures neg x2. Well's criteria of 9: high risk of PE. CTA negative, Bilateral pneumonia and pleural effusion of right lung noted. Plan: ? Continue DuoNebs, levalbuterol and inhaled N-acetylcysteine as needed - Dexamethasone 6mg po daily - Continue Zosyn -monitor I & O's; [place] -Supplement oxygen as needed - Tylenol as needed for fever > 100.4 F -Monitor vitals closely #Pneumoperitoneum #s/p sigmoid colectomy with low pelvic anastomosis on02/03/24, POD 10 #s/p right colectomy and excision of pelvic mass on 02/03/24, POD 10 #Leukocytosis, improving Patient had distended abdomen after recent EGD and colonoscopy done in the hospital, subsequently found to have pneumoperitoneum. Abdomen pelvis imaging indicative of pneumoperitoneum, requiring surgical intervention. On 02/03/2024: exploratory laparotomy with sigmoid colectomy and low pelvic anastomosis, right colectomy, and excision of pelvic mass, 50cc of blood loss. Oxygen requirement increased from OxyMask to hi flow. She required extra lasix as she appeared to be fluid overloaded on 02/11/24. Chest x-ray showed mild heart failure, left base pneumonia with pleural fluid of the left lung. Patient is tolerating diet well, consumed 25% of breakfast today, having regular bowel movements Plan: - CT incentive spirometry - Will continue to monitor patient's oral intake - General Surgery on board, recommends can D/c IV zosyn from surgery perspective. - PT recommends SNF outpatient setting upon discharge; goal: bed to chair and ambulate ? Continue Zosyn IV 3.375 gm every 8 hours ? Follow-up CBC and CMP # Hypernatremia, resolved Sodium up trended from 144-147. Osmolality 299. Possible component of dehydration leading to hypernatremia. Patient had poor oral intake. Reports improvement in appetite right now. Plan: -Hold D5W -Encourage oral intake -Continue supplements and dysphagia diet. #Macrocytic anemia Patient recently had surgical intervention which likely resulted in an imbalance of vitamin levels including folate and B12. Hemoglobin 7.9, MCV 101, hematocrit 24.8% Plan: ?Follow-up CBC in a.m. ?Will closely monitor. #History of dementia Patient takes donepezil and memantine. Plan: ?Continue donepezil and memantine #History of AAA status post stents (following Dr. Pro) #Incidental finding of liver and splenic lesions, on CT a/p Plan: ?Follow-up outpatient #RUDDY, most likely prerenal, resolved #Pulmonary embolism, ruled out #Sepsis, resolved #Hypokalemia- resolved DVT prophylaxis: SCD GI prophylaxis: Protonix twice daily Diet: Dysphagia Lines: Peripheral IV Code status: Full code Case discussed with Attending Dr. Jeter and Dr. Jones PGY3. Kevin Lim PGY1
--- NOTE | 2024-02-14 12:13 | ESPR_ITS ---
Documentation for date of: 02/14/24 Subjective Subjective Interval history: Patient clinically improving WBCs count is coming down Exam Vital Signs Temp Pulse Resp BP Pulse Ox O2 Del Method O2 Flow Rate 96.8 F 80 16 121/74 98 Nasal Cannula 3 02/14/24 08:00 02/14/24 09:04 02/14/24 08:00 02/14/24 09:04 02/14/24 08:00 02/14/24 08:00 02/14/24 08:00 FiO2 40 02/14/24 04:00 Objective Labs 02/15/24 04:56 02/15/24 13:40 Labs: Laboratory Results - last 24 hr 02/14/24 04:48 WBC 17.3 H RBC 2.46 L Hgb 7.9 L Hct 24.8 L MCV 101 H MCH 32.1 MCHC 31.9 RDW Std Deviation 54.9 H Plt Count 217 Neut % (Auto) 80 Lymph % (Auto) 5 L [place] % (Auto) 11 Eos % (Auto) 0 Baso % (Auto) 0 Neut # (Auto) 13.9 H Lymph # (Auto) 0.8 L [place] # (Auto) 1.9 H Eos # (Auto) 0.0 Baso # (Auto) 0.0 Immature Gran # (Auto) 0.71 H Absolute Nucleated RBC 0.00 Immature Gran % 4 H Nucleated RBC % 0 Sodium 140 Potassium 3.5 Chloride 104 Carbon Dioxide 27.9 Anion Gap 8 BUN 31 H Creatinine 1.2 Estim Creat Clear Calc 34.7 L eGFR 44 L BUN/Creatinine Ratio 26 H Glucose 124 H Calculated Osmolality 286 Calcium 8.7 Corrected Calcium 9.3 Phosphorus 3.3 Magnesium 2.0 Total Bilirubin 0.4 AST 42 H ALT 21 Alkaline Phosphatase 66 Total Protein 5.9 Albumin 3.2 L Globulin 2.7 Albumin/Globulin Ratio 1.2 Impressions Impression: # Status post right colectomy for ischemic colon # Status post sigmoid colectomy and lower leg anastomosis for microperforation in the region of the sigmoid colon Continue current management ABG Interpretation ABG results: 02/12/24 12:24 ABG pH 7.51 H ABG pCO2 35 ABG pO2 101 ABG HCO3 28 H ABG O2 Saturation 99 H ABG Base Excess 5 H Assessment & Plan A&P Narrative # After assessing the clinical picture clinical presentation reviewing the imaging study Findings of the CT scan showing air droplets in the gastric wall is a right hearing The only suspected perforation most likely is the left colon or may be another acute colonic event in the setting of her peripheral vascular disease Plan Continue broad-spectrum antibiotics Surgical exploration Discussed the case with Dr. Ayala Also spoke with her daughter at length Thank you once again for the opportunity to participate in the care of this patient Time Spent With Patient Time: Total time spent is greater than 50% in coordination of care (as documented) at patient's floor/unit and/or counseling patient:
[2024-02-14] MEDS: INSULIN HUM REGULAR 1 UNIT/0.01 ML (PER UNIT) SC (17:50)
[2024-02-14] MEDS: DONEPEZIL HCL 5 MG TABLET 10 MG PO (20:39)
[2024-02-14] MEDS: ATORVASTATIN CALCIUM 20 MG TABLET 40 MG PO (20:39)
[2024-02-14] MEDS: GABAPENTIN 100 MG CAPSULE 400 MG PO (20:39)
[2024-02-15] VITALS (10 sets, daily range): BP systolic 97–119; BP diastolic 55–77; PULSE 74–103; RESP 15–20; TEMP 36.1–36.8; O2SAT 92–100; BMI 30.6; BMI 12.0
[2024-02-15] MEDS: ALBUTEROL/IPRATROPIUM (Duoneb) RT SOL 3 ML NEBU INH ×3 (01:37→14:25)
[2024-02-15] MEDS: PIPER/TAZO 3.375 GM 3.375 GM/50 ML BAG IV ×2 (05:58→14:37)
[2024-02-15 06:02] LABS: Basophils % (Auto) 0 % (0-2.5); Eosinophils % (Auto) 0 % (0-10); Hematocrit 24.6 % (36.0-46.0); Immature Granulocytes % (Auto) 3 % (0-0); Immature Granulocytes Auto 0.54 Thou/mm3 (0.00-0.00); Lymphocytes # (Auto) 1.1 Thou/mm3 (1.0-4.8); Lymphocytes % (Auto) 7 % (10-50); Mean Corpuscular HGB Conc 32.5 g/dl (31.0-37.0); Mean Corpuscular Hemoglobin 31.9 pg (25.0-35.0); Mean Corpuscular Volume 98 fL (80-100); Monocytes # (Auto) 2.5 Thou/mm3 (0.0-0.8); Monocytes % (Auto) 15 % (0-12); Neutrophils # (Auto) 12.5 Thou/mm3 (1.8-7.7); Neutrophils % (Auto) 75 % (37-80); Nucleated Red Blood Cell % 0 /100 WBC (0); Platelet Count 240 Thou/mm3 (140-440); Red Blood Count 2.51 Miln/mm3 (4.00-5.20); White Blood Count 16.6 Thou/mm3 (3.6-11.0)
[2024-02-15 06:28] LABS: Alanine Aminotransferase 23 U/L (10-49); Albumin, Serum 3.4 gm/dL (3.4-4.8); Albumin/Globulin Ratio 1.3 (1.2-2.2); Alkaline Phosphatase 69 U/L (46-116); Anion Gap 10 (7-16); Aspartate Amino Transferase 26 U/L (0-34); BUN/Creatinine Ratio 23 Ratio (12-20); Bilirubin,Total 0.5 mg/dL (0.3-1.2); Blood Urea Nitrogen 23 mg/dL (9-23); Calcium 8.9 mg/dL (8.3-10.6); Calcium (Corrected) 9.4 mg/dL (8.5-10.1); Carbon Dioxide 27.5 mMol/L (20.0-31.0); Chloride 104 mMol/L (98-107); Estimated Creatinine Clearance 41.7 mL/min (>60); Globulin 2.7 gm/dL (2.3-3.5); Glucose 86 mg/dL (74-106); Magnesium 1.9 mg/dL (1.6-2.6); Osmolality,Calculated 283 (275-295); Phosphorous 2.6 mg/dL (2.4-5.1); Potassium 2.8 mMol/L (3.4-5.1); Sodium 141 mMol/L (136-145); Total Protein 6.1 gm/dL (5.7-8.2); eGFR 55 See Note
[2024-02-15] MEDS: POTASSIUM CHL 10 mEq IVPB 10 MEQ/100 ML BAG 100 MEQ IV ×4 (09:42→14:37)
[2024-02-15] MEDS: NAPH,KPH MBDB 1 PACKET (1.5 GM) PO (09:42)
[2024-02-15] MEDS: Magnesium Sulfate 2 GM Ivpb 2 GM/50 ML BAG IV (09:42)
[2024-02-15] MEDS: DOCUSATE SOD 100 MG CAPSULE PO (09:43)
[2024-02-15] MEDS: ASCORBIC ACID 250 MG TABLET 500 MG PO (09:43)
[2024-02-15] MEDS: dexAMETHasone 6 MG TABLET PO (09:43)
[2024-02-15] MEDS: MEMANTINE HCL 5 MG TABLET 10 MG PO (09:43)
[2024-02-15] MEDS: ZINC SULFATE 220 MG CAPSULE PO (09:43)
[2024-02-15] MEDS: amLODIPine BESYLATE 5 MG TABLET PO (09:43)
[2024-02-15] MEDS: PANTOPRAZOLE INJ 40 MG VIAL 80 MG IVP (09:43)
--- NOTE | 2024-02-15 10:12 | PD.RESDS ---
Planned Discharge Date 02/15/24 DS: Providers Provider Date of admission: 02/03/24 02:15 Primary care physician: Lambert Hansen MD Admitting Provider: Randy Roberto MD Attending Provider on Admission: Avery Jeter MD Consults: 02/03/24 02:29 Consult to General Surgery Stat Comment: Pneumoperitonium Consulting Provider: Sally Ayala 02/03/24 02:30 Consult to Gastroenterology Routine Comment: Consulting Provider: Bindu Hsu 02/05/24 07:46 Referral Registered Dietitian Stat Comment: PPN ordered; recc's please 02/07/24 08:00 Referral Physical Therapy Routine Comment: Physician Instructions: 02/14/24 23:30 Referral Wound Care Routine Comment: Bad MAD to mina/anal area, poss DTI rt buttock Attending Provider on DC: Courtney Russell MD Discharging Provider: Courtney Russell MD Hospital Course Hospital Course Hospital course: Please take atorvastatin 40 mg once daily for high cholesterol. Please continue home medications except duloxetine, meloxicam and rosuvastatin. Please hold losartan 100 mg orally once daily to be restarted after 02/29/2024 after PCP visit. Patient understands to return to the ED if symptoms resume. Time Spent with Patient Time attestation: Total time spent providing and/or coordinating discharge services: Exam Vital Signs Temp Pulse Resp BP Pulse Ox O2 Del Method O2 Flow Rate 97.2 F 103 H 17 117/77 100 Oxy Mask 5 02/15/24 08:00 02/15/24 09:43 02/15/24 08:00 02/15/24 09:43 02/15/24 08:00 02/15/24 08:00 02/15/24 08:00 FiO2 40 02/14/24 04:00 Discharge Plan Plan Patient Disposition: Xfer [facility] Fac (SNF) Patient condition on transfer: Stable Care Plan Goals: Please take atorvastatin 40 mg once daily for high cholesterol. Please continue home medications except duloxetine, meloxicam and rosuvastatin. Please hold losartan 100 mg orally once daily to be restarted after 02/29/2024 after PCP visit. Patient understands to return to the ED if symptoms resume. Prescriptions/Referrals Prescriptions/Med Rec: New atorvastatin 20 mg Tablet 40 mg PO 2100 30 Days Qty: 60 0RF Continued tolterodine 4 mg Capsule,Extended Release 24hr 4 mg PO QDAY donepezil [Aricept] 10 mg Tablet 10 mg PO QPM gabapentin 400 mg Capsule 400 mg PO QPM omeprazole 40 mg Capsule,Delayed Release(Dr/Ec) 40 mg PO QDAY montelukast 10 mg Tablet 10 mg PO QPM memantine 10 mg Tablet 10 mg PO QAM calcium carb-D3-mag ox-zinc ox 333 mg-133 unit -133 mg-5 mg Tablet 1 tab PO BID Held losartan 100 mg Tablet 100 mg PO QDAY Hold Instructions: Resume on 02/29/24. Restart medication after consulting PCP Discontinued meloxicam 15 mg Tablet 15 mg PO QDAY rosuvastatin [Crestor] 10 mg Tablet 10 mg PO QDAY duloxetine [Cymbalta] 60 mg Capsule,Delayed Release(Dr/Ec) 60 mg PO QDAY Referrals: Lambert Hansen MD [Primary Care Provider] - Sally Ayala MD [Physician] - Patient/Caregiver Discharge Instructions Print Language: [place] Activity Restrictions/Additional Instructions: May shower. Wear abdominal binder at all times. Diet as tolerated. Follow-up with Dr Ayala in 2 weeks, please call [phone] for an appointment. Stand Alone Forms: Era Award Info., Patient Portal Info Letter Discharge Order Discharge Orders: Discharge (Routine); Ordered 02/15/24 Ordered By: Courtney Russell
--- NOTE | 2024-02-15 12:49 | ESDS_ITS ---
<Statement entered by Avery Jeter MD - 02/17/24 16:34> I reviewed above note and agree with findings and plans. I have also personally examined the patient with medicine team and went over assessment and plan with medical team including [employer] internship and resident physician. <Statement entered by Dick Jones DO - 02/15/24 17:05> Senior attestation: Patient was examined and case was reviewed with team including attending physician. Note reviewed, I agree with most of its contents and agree with the patient's care. Dick Jones DO PGY-3 Planned Discharge Date 02/15/24 DS: Providers Provider Date of admission: 02/03/24 02:15 Primary care physician: Lambert Hansen MD Admitting Provider: Randy Roberto MD Attending Provider on Admission: Avery Jeter MD Consults: 02/03/24 02:29 Consult to General Surgery Stat Comment: Pneumoperitonium Consulting Provider: Sally Ayala 02/03/24 02:30 Consult to Gastroenterology Routine Comment: Consulting Provider: Bindu Hsu 02/05/24 07:46 Referral Registered Dietitian Stat Comment: PPN ordered; recc's please 02/07/24 08:00 Referral Physical Therapy Routine Comment: Physician Instructions: 02/14/24 23:30 Referral Wound Care Routine Comment: Bad MAD to mina/anal area, poss DTI rt buttock Attending Provider on DC: Courtney Russell MD Discharging Provider: Courtney Russell MD DS: Diagnosis Problem List Completed Was Problem List Reviewed/Reconciled?: Yes Hospital Course Hospital Course Hospital course: #Acute hypoxic respiratory failure, stable Likely 2/2 #COVID pneumonia #Fluid overloaded state #Pneumoperitoneum #s/p sigmoid colectomy with low pelvic anastomosis on02/03/24, POD 10 #s/p right colectomy and excision of pelvic mass on 02/03/24, POD 10 #Leukocytosis, improving #Hypernatremia #Macrocytic anemia #History of dementia #History of AAA status post stents (following Dr. Pro) #Incidental finding of liver and splenic lesions, on CT a/p #RUDDY, most likely prerenal, resolved #Pulmonary embolism, ruled out #Sepsis, resolved #Hypokalemia- resolved An 88-year-old female patient with significant medical history for abdominal aortic aneurysm s/p stents, HLD, HTN, GERD, asthma and dementia presented to the ED of [facility] on 02/01 for distended abdomen. She had a recent admission at the beginning of January 2024. During that admission, she was found to have hemoglobin significant drop fro11's to 8.9, prompting GI consult. GI recommended EGD and colonoscopy which were both completed on recent admission, which revealed gastritis and diverticulosis with hemorrhoids. It appeared that during that colonoscopy, the colon appeared narrow requiring very tactical maneuvers to perform the colonoscopy. During presentation on ED visit she met 4 out of 4 SIRS criteria for sepsis:pulse 123, respiratory rate 26 and temperature 100.4 F,elevated WBC. Patient appeared to have hypoactive bowel sounds. Chest x-ray showed mild heart failure, left base pneumonia with pleural fluid of the left lung. Abdomen pelvis imaging indicated pneumoperitoneum, requiring surgical intervention. Surgeon Dr. Ayala was consulted who recommended emergent exploratory laparotomy. Patient was admitted for sepsis secondary to pneumoperitoneum, requiring exploratory laparotomy consisting of sigmoid colectomy with low pelvic anastomosis, right colectomy, and excision of pelvic mass. On 02/03/2024, the procedure was successfully completed with 50cc of blood loss. He also recommended patient to be n.p.o. with NG tube, followed by starting PPN for nutrition purposes/bowel rest. Dr. Shadi CHAPPELL also called who recommended NG tube and IV antibiotics with surgical correction as needed. Patient was later transitioned to dysphagia diet and Ensure + high protein. However, patient was noted to have poor oral intake, which led to prolonged hospital stay. IV Vanco pharmacy to dose(02/02-02/04/24) and transitioned to IV Zosyn per surgery reccomendations. Patient developed acute hypoxic respiratory failure secondary to COVID-pneumonia, which she tested positive for on this admission pneumonia. Patient was started on nasal cannula but required high flow during hospitalization. She was transitioned to oxy mask and weaned off /transitioned to nasal cannula. patient possibly acquired pneumonia from recent prior hospitalization, while living in SNF also placed her at risk for pneumonia. Procalcitonin 0.64. Influenza negative, Cocci negative, strep A negative. Blood cultures neg x2. During hospital course, patient was found to have left upper extremity swelling prompting ultrasound venous Doppler. Ultrasound Doppler was negative for DVT. Considering patient's presentation of tachycardia and tachypnea postoperatively, concern was raised for possible PE. Wells criteria calculated of 9: high risk of PE. CTA was ordered. Considering patient had recent CT abdomen pelvis with contrast and reactive hives, IR Dr. Castano recommended to begin Cortef steroid. The next day, dexamethasone was began for patient's pneumonia. Patient's pneumonia cleared up with combination of IV antibiotics breathing treatments dexamethasone and oxygen. Patient initially had bilateral rales, which resolved with treatment mentioned. CTA resulted negative for PE. However, bilateral pneumonia and pleural effusions of the right lung were noted. In preparation for discharge, therapy work with patient who recommended SNF. Zosyn IV 3.375 gm every 8 hours (02/03/24- 02/15/2024) were given for both pneumonia and possible GI infection. During hospital course, patient also developed hyponatremia secondary to dehydration, requiring D5W. Her hypernatremia resolved. Prior to discharge, patient was noted to have hematomas in the R and left buttocks with initial stages of stress uclers. It is believed that this ulcers may have formed a combination of bed rest and watery stool during hospital course. Patient was also found to have difficulty ambulating as she appeared with generalized weakness after surgery. Patient's mobility improved with the help of physical therapy. Patient's abdominal kamar are healing. Patient had a bowel movement and tolerating diet; therefore, she is medically stable for discharge to SNF. Patient will take atorvastatin 40 mg once daily for high cholesterol. She will continue home medications except duloxetine, meloxicam and rosuvastatin. Patient will hold losartan 100 mg orally once daily to be restarted after 02/29/2024 after PCP visit. She understands to return to the ED if symptoms resume. Discussed case with my attending Dr. Jeter and senior Jones, PGY-3. Thank you, Courtney Russell, PGY-2 Time Spent with Patient Time attestation: Total time spent providing and/or coordinating discharge services: Time spent: Greater than 30 minutes Exam Vital Signs Temp Pulse Resp BP Pulse Ox O2 Del Method O2 Flow Rate 97.2 F 103 H 17 117/77 100 Oxy Mask 5 02/15/24 08:00 02/15/24 09:43 02/15/24 08:00 02/15/24 09:43 02/15/24 08:00 02/15/24 08:00 02/15/24 08:00 FiO2 40 02/14/24 04:00 Narrative Exam Constitutional: lethargic female; well-developed, well-nourished in no acute distress HEENT: NCAT, EOMI, reactive round pupils b/l, moist mucous membranes Lung: CTAB, no wheezing, b/l rales all lung lobes, saturating in 90s on 3 L nasal cannula. Heart: Regular S1S2, no murmurs, gallops, or rubs Abdomen: Non-tender. Surgical kamar at midline with 1 teaspoon of fluid collected and abdominal Binder noted. Extremities: No edema lower extremities bilaterally. 1+ dorsalis pedis pulses present b/l Neurologic: Generally alert and oriented to person and place. Skin: Warm, dry, no lesions or rashes noted Discharge Plan Plan Patient Disposition: Xfer Skilled Nsg Fac (SNF) Patient condition on transfer: Stable Care Plan Goals: Please take atorvastatin 40 mg once daily for high cholesterol. Please continue home medications as prescribed Please hold losartan 100 mg orally once daily to be restarted after 02/29/2024 after PCP visit. Patient understands to return to the ED if symptoms resume. Prescriptions/Referrals Prescriptions/Med Rec: New atorvastatin 20 mg Tablet 40 mg PO 2100 30 Days Qty: 60 0RF Continued tolterodine 4 mg Capsule,Extended Release 24hr 4 mg PO QDAY donepezil [Aricept] 10 mg Tablet 10 mg PO QPM gabapentin 400 mg Capsule 400 mg PO QPM omeprazole 40 mg Capsule,Delayed Release(Dr/Ec) 40 mg PO QDAY montelukast 10 mg Tablet 10 mg PO QPM memantine 10 mg Tablet 10 mg PO QAM calcium carb-D3-mag ox-zinc ox 333 mg-133 unit -133 mg-5 mg Tablet 1 tab PO BID Held losartan 100 mg Tablet 100 mg PO QDAY Hold Instructions: Resume on 02/29/24. Restart medication after consulting PCP Discontinued meloxicam 15 mg Tablet 15 mg PO QDAY rosuvastatin [Crestor] 10 mg Tablet 10 mg PO QDAY duloxetine [Cymbalta] 60 mg Capsule,Delayed Release(Dr/Ec) 60 mg PO QDAY Referrals: Lambert Hansen MD [Primary Care Provider] - Sally Ayala MD [Physician] - Patient/Caregiver Discharge Instructions Discharge Activity: as per physical therapy Education Materials: Surgery Anesthesia After, Exploratory Laparotomy, Using Blood Thinners Anticoagulants, TIA Surg, Hypertension Stroke Link, Discharge Instructions for Stroke, Preventing Surgical Site Infections, Good Positioning After a Stroke Print Language: Maori Activity Restrictions/Additional Instructions: May shower. Wear abdominal binder at all times. Diet as tolerated. Follow-up with Dr Ayala in 2 weeks, please call [phone] for an appointment. Stand Alone Forms: Era Award Info., Patient Portal Info Letter Discharge Order Discharge Orders: Discharge (Routine); Ordered 02/15/24 Ordered By: Dick Jones Quality Discharge Quality Measures VTE prophylaxis
[2024-02-15 14:14] LABS: Potassium 3.6 mMol/L (3.4-5.1)
--- NOTE | 2024-02-15 15:29 | PC.SS ---
SS has informed Claire at [facility] pt will d/c today and PASRR has been sent through file exchange & [facility]. SS has spoke to pt's and explained patient's health insurance does not cover transportation. is unable to pay privately. Pt is Covid positive and is requiring 3 liters of O2, per bedside nurseIlia. SS has sent patient's facesheet, ambulance form, and TACHO signed by transfer nurse to [facility]. SS has spoke to Vijaya at [facility] and transport is setup for 6pm to [facility]. Claire at [facility] is aware. Pt is aware. Bedside nurseIlia is aware. Martha MONTOYA is aware.
--- NOTE | 2024-02-15 19:19 | PC.NURSE ---
Notified Dr. Russell of drainage from bottom two kamar, thick purlent drainage. Dr. Russell followed up with Dr. Bourgeois who assessed patient and confirmed kamar are intact and ok to continue with discharge to SNF. Dr. Russell notified of MASD and skin tears on bilateral buttocks. Tried to contact wound care nurse but unable to contact. Dr. Russell okayed to continue with discharge and wound care will be continued to be treated at SNF.
--- NOTE | 2024-02-15 19:21 | PC.NURSE ---
Gave report to Tab at [facility] and notified of covid positive status, MASD and skin tears on bilateral buttocks, and patient being transfered with oxygen.
--- NOTE | 2024-02-15 19:22 | PC.NURSE ---
Contacted point of contact Ashley about personal belongings, Ashley verbalized over phone that they have glasses at home.
--- NOTE | 2024-02-15 19:24 | PD.IMPROG ---
Documentation for date of: 02/15/24 Subjective Subjective Interval history: WBC continues to improve Having bowel movement No nausea vomiting Exam Vital Signs Temp Pulse Resp BP Pulse Ox O2 Del Method O2 Flow Rate 97.3 F 80 15 97/57 L 95 Nasal Cannula 3 02/15/24 16:00 02/15/24 16:00 02/15/24 16:00 02/15/24 16:00 02/15/24 16:00 02/15/24 16:00 02/15/24 16:00 FiO2 40 02/14/24 04:00 Objective Labs 02/15/24 04:56 02/15/24 13:40 Labs: Laboratory Results - last 24 hr 02/15/24 02/15/24 04:56 13:40 WBC 16.6 H RBC 2.51 L Hgb 8.0 L Hct 24.6 L MCV 98 MCH 31.9 MCHC 32.5 RDW Std Deviation 52.0 H Plt Count 240 Neut % (Auto) 75 Lymph % (Auto) 7 L [place] % (Auto) 15 H Eos % (Auto) 0 Baso % (Auto) 0 Neut # (Auto) 12.5 H Lymph # (Auto) 1.1 [place] # (Auto) 2.5 H Eos # (Auto) 0.0 Baso # (Auto) 0.0 Immature Gran # (Auto) 0.54 H Absolute Nucleated RBC 0.00 Immature Gran % 3 H Nucleated RBC % 0 Sodium 141 Potassium 2.8 L D 3.6 D Chloride 104 Carbon Dioxide 27.5 Anion Gap 10 BUN 23 Creatinine 1.0 Estim Creat Clear Calc 41.7 L eGFR 55 L BUN/Creatinine Ratio 23 H Glucose 86 Calculated Osmolality 283 Calcium 8.9 Corrected Calcium 9.4 Phosphorus 2.6 Magnesium 1.9 Total Bilirubin 0.5 AST 26 ALT 23 Alkaline Phosphatase 69 Total Protein 6.1 Albumin 3.4 Globulin 2.7 Albumin/Globulin Ratio 1.3 Impressions Impression: # Status post right colectomy for ischemic colon # Status post sigmoid colectomy and low-lying anastomosis Continue current management ABG Interpretation ABG results: 02/12/24 12:24 ABG pH 7.51 H ABG pCO2 35 ABG pO2 101 ABG HCO3 28 H ABG O2 Saturation 99 H ABG Base Excess 5 H Assessment & Plan A&P Narrative # After assessing the clinical picture clinical presentation reviewing the imaging study Findings of the CT scan showing air droplets in the gastric wall is a right hearing The only suspected perforation most likely is the left colon or may be another acute colonic event in the setting of her peripheral vascular disease Plan Continue broad-spectrum antibiotics Surgical exploration Discussed the case with Dr. Ayala Also spoke with her daughter at length Thank you once again for the opportunity to participate in the care of this patient Time Spent With Patient Time: Total time spent is greater than 50% in coordination of care (as documented) at patient's floor/unit and/or counseling patient:
== END 2024-02-15 18:14 | disposition skilled nursing facility (03) | DRG 853 ==
LOC: SERX 20:21 → SERHOLD 02-03 02:29 → S2NX 02-03 16:30
PROVIDERS: Internal Medicine; Specialist; Student in an Organized Health Care Education/Training Program; Surgery; Admitting Provider Internal Medicine; Emergency Provider Emergency Medicine; PCP Internal Medicine; Visit Provider Internal Medicine
PROC: 0DTN0ZZ Resection of Sigmoid Colon, Open Approach (ICD-10-PCS; CPT 49000; principal; 2024-02-03 12:00)
DX: A41.89 Other specified sepsis (principal); J12.82 Pneumonia due to coronavirus disease 2019; K21.01 Gastro-esophageal reflux disease with esophagitis, with bleeding; K63.1 Perforation of intestine (nontraumatic); U07.1 COVID-19; J96.01 Acute respiratory failure with hypoxia; N17.9 Acute kidney failure, unspecified; E87.0 Hyperosmolality and hypernatremia; R19.00 Intra-abdominal and pelvic swelling, mass and lump, unspecified site; F03.90 Unspecified dementia, unspecified severity, without behavioral disturbance, psychotic disturbance, mood disturbance, and anxiety; J45.909 Unspecified asthma, uncomplicated; Y95 Nosocomial condition; K76.9 Liver disease, unspecified; Z86.79 Personal history of other diseases of the circulatory system; M19.90 Unspecified osteoarthritis, unspecified site; D53.9 Nutritional anemia, unspecified; E87.6 Hypokalemia; I10 Essential (primary) hypertension; E78.5 Hyperlipidemia, unspecified; E87.8 Other disorders of electrolyte and fluid balance, not elsewhere classified; Z95.0 Presence of cardiac pacemaker; I73.9 Peripheral vascular disease, unspecified; K64.9 Unspecified hemorrhoids; K29.70 Gastritis, unspecified, without bleeding; E86.0 Dehydration; K66.8 Other specified disorders of peritoneum
CPT/HCPCS: 36415; 36600; 71045; 71275; 74018; 74177; 80048; 80053; 80202; 81001; 82803; 83605; 83690; 83735; 83880; 84100; 84132; 84145; 84478; 84484; 85025; 85610; 85730; 86850; 86900; 86901; 87040; 87081; 87811; 93005; 93971; 94640; 96374; 97162; 99291; A4649; A9270; B4185; J0131; J0694; J1720; J1815; J1885; J1940; J2270; J2371; J2470; J2543; J2704; J3010; J3370; J3475; J3480; J3490; J7030; J7040; J7050; J7070; J8540; Q9967; J1920